=== PATIENT | male | born 1945 | race Caucasian/White ===

== ENCOUNTER 2020-02-19 07:12 | Outpatient (REF) | payer MEDICARE, BC, SELFPAY ==
[2020-02-19 08:33] LABS: MANUAL DIFF FLAG NO
[2020-02-19 08:56] LABS: Basophils Absolute Auto 0.1 X10*3/uL (0.0-0.2); Basophils Percent Auto 1.3 % (0-2); Eosinophils Absolute Auto 0.2 X10*3/uL (0.0-0.4); Eosinophils Percent Auto 3.6 % (0-4); Hematocrit 45.7 % (42-52); Hemoglobin 15.3 g/dl (14.0-18.0); Imm Gran Abs Auto 0.02 X10*3/uL (0.00-0.03); Imm Gran Pct Auto 0.3 % (0.0-0.4); Lymphocytes Absolute Auto 2.5 X10*3/uL (1.2-4.9); Lymphocytes Percent Auto 40.8 % (20-40); Mean Corpuscular HGB Conc 33.5 g/dl (31.0-36.0); Mean Corpuscular Hemoglobin 28.8 pg (27.0-33.0); Mean Corpuscular Volume 86.1 fL (80-98); Mean Platelet Volume 9.7 fL (9.4-12.4); Monocytes Absolute Auto 0.5 X10*3/uL (0.1-1.2); Monocytes Percent Auto 8.9 % (2-11); Neutrophils Absolute Auto 2.7 X10*3/uL (2.0-8.3); Neutrophils Percent Auto 45.1 % (45-73); Platelet Count 250 X10*3/uL (160-400); Red Blood Count 5.31 X10*6/uL (4.60-5.80); Red Cell Distribution Width 12.6 % (11.0-16.0); White Blood Count 6.1 X10*3/uL (4.8-10.8)
[2020-02-19 09:40] LABS: Alanine Aminotransferase 53 U/L (0-40); Albumin Level 4.5 g/dL (3.5-5.0); Alkaline Phosphatase 97 U/L (39-117); Anion Gap 10 (12-20); Aspartate Amino Transferase 36 U/L (5-37); Bilirubin Total 0.9 mg/dL (0.0-1.0); Blood Urea Nitrogen 11 mg/dL (9-16); Calcium 8.9 mg/dL (8.4-10.2); Carbon Dioxide 28 mmol/L (22-29); Chloride 102 mmol/L (96-108); Cholesterol 216 mg/dL; Estimated Glomerular Filt Rate > 60; Glucose Random 107 mg/dL (60-115); HDL Cholesterol 34 mg/dL; LDL Cholesterol Calculated 133 mg/dl; Potassium 4.2 mmol/l (3.3-5.1); Sodium 136 mmol/L (135-145); Total Protein 7.2 g/dL (6.5-8.0); Triglycerides 249 mg/dL
[2020-02-19 09:54] LABS: Estimated Average Glucose 111 mg/dL; Hemoglobin A1c % 5.5 %
[2020-02-19 10:03] LABS: Vitamin D 25-OH Total 45.1 ng/mL (>30)
[2020-02-19 11:01] LABS: Glucose Urine UA NEG (NEG); Leukocyte Esterase Urine NEG (NEG); Nitrite Urine NEG (NEG); PH 6.5 (5.0-8.0); Urine Blood NEG (NEG); Urine Ketones NEG (NEG); Urine Protein NEG (NEG-TRACE)
[2020-02-19 11:07] LABS: Appearance Urine CLEAR; Color Urine YELLOW; UACC Culture Trigger NO
[2020-02-19 11:22] LABS: RBC Urine 0 /HPF (0); Squamous Epithelial Cell Urine 1+ /LPF; WBC Urine 0 /HPF (0-4)
== END 2020-02-19 07:13 | disposition home or self-care (01) ==
LOC: HO.LAB 07:12
PROVIDERS: PCP Internal Medicine; Visit Provider Internal Medicine
DX: I10 Essential (primary) hypertension (principal); E78.5 Hyperlipidemia, unspecified; R73.01 Impaired fasting glucose; K21.9 Gastro-esophageal reflux disease without esophagitis; C67.9 Malignant neoplasm of bladder, unspecified; E55.9 Vitamin D deficiency, unspecified; E66.9 Obesity, unspecified
CPT/HCPCS: 36415; 80053; 80061; 81001; 81003; 82306; 83036; 84443; 85025

== ENCOUNTER → 2020-06-12 09:49 | Outpatient (BNVA) | payer MEDICARE, SELFPAY | PROVIDERS: Visit Provider Urology | DX: R31.9 Hematuria, unspecified (principal); Z85.51 Personal history of malignant neoplasm of bladder | CPT/HCPCS: 52000; 52332; 81002; 99212 ==

== ENCOUNTER 2020-06-17 06:55 | Outpatient (REF) | payer MEDICARE, SELFPAY ==
[2020-06-17 07:34] LABS: MANUAL DIFF FLAG NO
[2020-06-17 07:36] LABS: Basophils Absolute Auto 0.1 X10*3/uL (0.0-0.2); Basophils Percent Auto 0.8 % (0-2); Eosinophils Absolute Auto 0.2 X10*3/uL (0.0-0.4); Eosinophils Percent Auto 3.3 % (0-4); Hematocrit 44.6 % (42-52); Hemoglobin 15.3 g/dl (14.0-18.0); Imm Gran Abs Auto 0.01 X10*3/uL (0.00-0.03); Imm Gran Pct Auto 0.2 % (0.0-0.4); Lymphocytes Absolute Auto 2.4 X10*3/uL (1.2-4.9); Lymphocytes Percent Auto 39.9 % (20-40); Mean Corpuscular HGB Conc 34.3 g/dl (31.0-36.0); Mean Corpuscular Hemoglobin 28.8 pg (27.0-33.0); Mean Platelet Volume 9.9 fL (9.4-12.4); Monocytes Absolute Auto 0.5 X10*3/uL (0.1-1.2); Monocytes Percent Auto 8.5 % (2-11); Neutrophils Absolute Auto 2.9 X10*3/uL (2.0-8.3); Neutrophils Percent Auto 47.3 % (45-73); Platelet Count 253 X10*3/uL (160-400); Red Blood Count 5.31 X10*6/uL (4.60-5.80); Red Cell Distribution Width 12.5 % (11.0-16.0); White Blood Count 6.1 X10*3/uL (4.8-10.8)
[2020-06-17 07:55] LABS: Glucose Urine UA NEG (NEG); Leukocyte Esterase Urine NEG (NEG); Nitrite Urine NEG (NEG); PH 6.5 (5.0-8.0); Urine Blood TRACE (NEG); Urine Ketones NEG (NEG); Urine Protein 1+ MG/DL (NEG-TRACE)
[2020-06-17 08:12] LABS: Alanine Aminotransferase 55 U/L (0-40); Albumin Level 4.4 g/dL (3.5-5.0); Alkaline Phosphatase 102 U/L (39-117); Anion Gap 11 (12-20); Aspartate Amino Transferase 30 U/L (5-37); Bilirubin Total 0.9 mg/dL (0.0-1.0); Blood Urea Nitrogen 10 mg/dL (9-16); Calcium 8.9 mg/dL (8.4-10.2); Carbon Dioxide 29 mmol/L (22-29); Chloride 102 mmol/L (96-108); Cholesterol 197 mg/dL; Estimated Glomerular Filt Rate > 60; Glucose Fasting 113 mg/dL (60-99); HDL Cholesterol 33 mg/dL; LDL Cholesterol Calculated 101 mg/dl; Sodium 138 mmol/L (135-145); Total Protein 7.1 g/dL (6.5-8.0); Triglycerides 318 mg/dL
[2020-06-17 08:19] LABS: Appearance Urine CLEAR; Color Urine YELLOW
[2020-06-17 08:26] LABS: TSH reflex Free T4 1.33 uIU/mL (0.32-4.0); Vitamin D 25-OH Total 43.5 ng/mL (>30)
[2020-06-17 09:09] LABS: Bacteria Urine TRACE /LPF; Mucus Urine 1+ /LPF; Squamous Epithelial Cell Urine TRACE /LPF; UACC CULT YES
== END 2020-06-17 06:56 | disposition home or self-care (01) ==
LOC: HO.LAB 06:55
PROVIDERS: Visit Provider Internal Medicine
DX: I10 Essential (primary) hypertension (principal); K21.9 Gastro-esophageal reflux disease without esophagitis; C67.9 Malignant neoplasm of bladder, unspecified; E78.00 Pure hypercholesterolemia, unspecified; R73.01 Impaired fasting glucose; E66.9 Obesity, unspecified; E55.9 Vitamin D deficiency, unspecified
CPT/HCPCS: 36415; 80053; 80061; 81001; 81003; 82306; 84443; 85025; 87086

== ENCOUNTER 2020-07-06 06:03 | Day surgery (SDC) | payer MEDICARE, BC, SELFPAY ==
[2020-06-30 15:56] VITALS: BMI 29.2
[2020-07-06] VITALS (12 sets, daily range): BP systolic 136–174; BP diastolic 49–88; PULSE 63–80; RESP 16–18; TEMP 36.4–37.1; O2SAT 94–100
[2020-07-06] MEDS: levoFLOXacin 500 MG TABLET PO (06:32)
--- NOTE | 2020-07-06 07:08 | MHC.SHP ---
Pre-Procedural Eval Section A The patient is an INPATIENT: No Changes since office visit: No Cold of Flu in the past 2 weeks, No New Medical Problems, No Changes in Medication and No Patient answered all questions The History & Physical has been completed within 30 days and I have reviewed it.: Yes Section B Chief Complaint: Bladder cancer Allergies: Allergies Allergy/AdvReac Type Severity Reaction Status Date / Time amoxicillin Allergy Severe hives Verified 07/06/20 06:33 codeine [CODEINE] AdvReac Mild NAUSEA Verified 07/06/20 06:33 oxycodone [From PERCOCET] AdvReac Mild NAUSEA & Verified 07/06/20 06:33 VOMITING Plan Diagnosis/Plan: Unchanged I have reviewed the history and physical and performed a pertinent physical examination on my patient. No changes have occurred unless specified. Cystoscopy with TURBT and gemcitabine
--- NOTE | 2020-07-06 07:10 | P.CONAN_ITS ---
[facility] Active Problems Active Problems: All Active Problems (Updated 06/30/20 @ 15:52 by Brittany reza) Obesity (BMI 30-39.9) (Acute) Insomnia (Acute) Urothelial carcinoma of bladder (Acute) Vitamin D deficiency (Acute) GERD (gastroesophageal reflux disease) (Acute) Impaired fasting glucose (Acute) Pure hypercholesterolemia (Acute) Benign essential hypertension (Acute) Past Medical History Medical History (Updated 06/30/20 @ 15:52 by Brittany Higuera) Benign essential hypertension GERD (gastroesophageal reflux disease) Hiatal hernia Hx of bladder cancer Impaired fasting glucose Insomnia Murmur Obesity (BMI 30-39.9) Pure hypercholesterolemia Urothelial carcinoma of bladder Vitamin D deficiency Family History Family History Father Hypertension Stroke Acute CVA (cerebrovascular accident) Mother Hypertension Diabetes CVD (cardiovascular disease) Brother In good health Surgical History Surgical History (Updated 06/30/20 @ 15:52 by Brittany Higuera) H/O arthroscopy of knee History of biopsy of bladder History of bladder surgery History of cataract surgery History of colonoscopy History of esophagogastroduodenoscopy (EGD) History of hemorrhoidectomy Social History Social History (Updated 06/30/20 @ 15:55 by Brittany Higuera) Alcohol intake: current Alcohol intake frequency: a few times a week Alcohol type: beer Smoking Status: Former smoker Smoking Quit Date: Use of substances other than those prescribed or required for medical reasons: No Have you been hit, kicked, punched, or otherwise hurt by someone within the past year? If so, by whom?: No Advance Directives: No Advance Directives Information Provided: No Advance Directives on File: No Meds Allergies Allergy/AdvReac Type Severity Reaction Status Date / Time amoxicillin Allergy Severe hives Verified 07/06/20 06:33 codeine [CODEINE] AdvReac Mild NAUSEA Verified 07/06/20 06:33 oxycodone [From PERCOCET] AdvReac Mild NAUSEA & Verified 07/06/20 06:33 VOMITING Active Medications: Current Medications Generic Name Dose Route Start Last Admin Trade Name Freq PRN Reason Stop Dose Admin Gemcitabine HCl 1,000 mg/ 50 mls @ 50 mls/hr 07/06/20 00:00 Sodium Chloride INTRAVESIC 07/06/20 23:59 ONCE ROSEANNE Gemcitabine HCl 1,000 mg/ 50 mls @ 50 mls/hr 07/06/20 00:00 Sodium Chloride INTRAVESIC 07/06/20 23:59 ONCE ROSEANNE Lactated Ringer's 1,000 mls @ 50 mls/hr 07/06/20 07:15 Lr IV .Q20H [facility] Home Medications Medication Instructions Recorded Confirmed Last Taken Type amlodipine 10 mg tablet 10 mg PO DAILY 02/25/20 06/30/20 07/06/20 History calcium carbonate 600 mg calcium 600 mg PO DAILY 02/25/20 06/30/20 Unknown History (1,500 mg) tablet diphenhydramine HCl 25 mg capsule 50 mg PO BEDTIME 02/25/20 06/30/20 Unknown History lisinopril 40 mg tablet 40 mg PO DAILY 02/25/20 06/30/20 07/06/20 History metoprolol tartrate 25 mg tablet 25 mg PO BID 02/25/20 06/30/20 07/06/20 History multivitamin 1 tab PO DAILY 02/25/20 06/30/20 Unknown History omeprazole magnesium 20 mg 20 mg PO DAILY 02/25/20 07/06/20 07/06/20 History tablet,delayed release 0500 Exam Exam Date and Time: July 06, 2020 0710 Height,Weight and Vital Signs: Height 5 ft 4 in Weight 77.111 kg Last Vital Signs Temp 98.8 F 07/06/20 06:13 Pulse 74 07/06/20 06:13 Resp 18 07/06/20 06:13 BP 174/88 H 07/06/20 06:13 Pulse Ox 97 07/06/20 06:13 Airway Mallampati Class: II TM Dist: >3cm Neck ROM: Full Heart: RRR Lungs: CtA Bl Assessment and Plan Assessment Anesthesia Assessment: Anesthesia Plan Discussed and Chart Reviewed Final Anesthetic Review NPO: Yes (Sip water with meds) ASA Class: III Final Preanesthetic Review: No Changes in Pt Med Stat and Consent Obtained/Reviewed Patient Risk: Intermediate Procedure Risk: Intermediate Anesthetic Plan Anesthetic Plan: MAC: Disposition: Standard PACU
[2020-07-06] MEDS: Lactated Ringers 1,000 ML 50 ML IV (07:17)
--- NOTE | 2020-07-06 08:13 | PM.OP ---
Brief Operative Note Date of Service: 07/06/20 Pre-op diagnosis: Bladder cancer Post-op diagnosis: same Procedure: TURBT large, mitomycin C instillation Surgeon: Vince Alvarez MD Anesthesia: GLMA Estimated blood loss (mL): 0 Pathology: other (Bladder cancer) Condition: stable Disposition: same day
--- NOTE | 2020-07-06 08:19 | P.OP_ITS ---
Operative Note Operative Note Date of Service: 07/06/20 Narrative: PreOperative Diagnosis: Bladder cancer Post Operative Diagnosis: Bladder cancer Procedure: TURBT large, instillation gemcitabine Surgeon: Dr Vince Alvarez Anesthesia: General Indications for procedure: Recurrent bladder cancer. On cystoscopy in office found to have large greater than 4 cm lesion on right upper bladder sidewall. Recommendation for resection plus gemcitabine. Risks and benefits previously been discussed Procedure: After informed consent was verified the patient was brought to the operating room and placed in a supine position. anesthesia was administered per protocol. Patient was placed in modified dorsal lithotomy position and prepped and draped in sterile fashion. Safety pause time-out was performed. Antibiotics being given. A resectoscope was placed per urethra. The large recurrent bladder lesion was seen on the sidewall. Feeding kip vascularity vessels were noted. The lesion was resected. Likely it had a relatively narrow approximately 1 cm base. As we resected we were able to get to the base and fulgurate the blood supply. Then t he area around the base was resected and fulgurated for 1 cm in additional circumference. Specimen was sent. Three 0 Marshall catheter was placed the completion of the procedure. Gemcitabine 2 g in 100 cc normal saline was instilled. This will be kept for approximately 1 hour and then washed with 3 L of normal saline. He tolerated procedure well was extubated in operating transferred in stable c ondition to the recovery area. Drainage bag place. Pathology: Bladder specimen Drains: Marshall catheter
[2020-07-06] MEDS: Acetaminophen 325 MG TABLET 650 MG PO (10:04)
== END 2020-07-06 11:15 ==
LOC: HO.SSS 06:03
PROVIDERS: PCP Internal Medicine; Visit Provider Urology
PROC: 0TBB8ZZ Excision of Bladder, Via Natural or Artificial Opening Endoscopic (ICD-10-PCS; CPT 52240; principal; 2020-07-06 07:30)
DX: C67.9 Malignant neoplasm of bladder, unspecified (principal)
CPT/HCPCS: 52240; 51720; 88307; J1100; J2250; J2405; J3010; J9201

== ENCOUNTER → 2020-07-23 08:36 | Outpatient (BNVA) | payer MEDICARE, BC, SELFPAY | PROVIDERS: PCP Internal Medicine; Visit Provider Urology | DX: C67.9 Malignant neoplasm of bladder, unspecified (principal) | CPT/HCPCS: 99212 ==

== ENCOUNTER 2020-09-18 18:05 | Emergency (ER) | payer MEDICARE, BC, SELFPAY ==
--- NOTE | ~2020-09-18 | CT_ITS ---
EXAMINATION: CT HEAD WITHOUT CONTRAST CLINICAL INFORMATION: Unilateral double vision COMPARISON: None TECHNIQUE: Contiguous axial imaging was performed from the skull base to vertex without intravenous administration of contrast. This CT examination was performed using dose optimization techniques as appropriate, variously including the following: *Automated exposure control *Adjustment of mA and/or kV according to patient size (this includes techniques or standardized protocols for targeted exams where dose is matched to indication/reason for exam; i.e. extremities or head) *Use of iterative reconstruction technique DLP: 714 mGy-cm FINDINGS: There is no evidence of acute intracranial hemorrhage or territorial infarction. No abnormal mass effect or midline shift is seen. Whitaker to white matter differentiation is well preserved. No extra-axial fluid collections are identified. The ventricles are normal in size. There is no abnormal attenuation within the brain parenchyma. The osseous structures and soft tissues are normal. The mastoid air cells and visualized portions of the paranasal sinuses are well aerated. CT/CT head/brain wo con IMPRESSION: No acute intracranial process seen
[2020-09-18 19:56] VITALS: BP 197/89; PULSE 93; RESP 16; TEMP 37.1; O2SAT 95; BMI 31.8
[2020-09-18 20:36] LABS: MANUAL DIFF FLAG NO
[2020-09-18 20:37] LABS: Basophils Percent Auto 0.5 % (0-2); Eosinophils Absolute Auto 0.1 X10*3/uL (0.0-0.4); Eosinophils Percent Auto 1.7 % (0-4); Hematocrit 43.4 % (42-52); Hemoglobin 15.2 g/dl (14.0-18.0); Imm Gran Abs Auto 0.02 X10*3/uL (0.00-0.03); Imm Gran Pct Auto 0.3 % (0.0-0.4); Lymphocytes Absolute Auto 2.7 X10*3/uL (1.2-4.9); Lymphocytes Percent Auto 36.5 % (20-40); Mean Corpuscular Hemoglobin 29.3 pg (27.0-33.0); Mean Corpuscular Volume 83.8 fL (80-98); Mean Platelet Volume 9.5 fL (9.4-12.4); Monocytes Absolute Auto 0.6 X10*3/uL (0.1-1.2); Monocytes Percent Auto 8.3 % (2-11); Neutrophils Absolute Auto 3.9 X10*3/uL (2.0-8.3); Neutrophils Percent Auto 52.7 % (45-73); Platelet Count 233 X10*3/uL (160-400); Red Blood Count 5.18 X10*6/uL (4.60-5.80); Red Cell Distribution Width 13.3 % (11.0-16.0); White Blood Count 7.5 X10*3/uL (4.8-10.8)
[2020-09-18 21:05] LABS: Anion Gap 13 (12-20); Blood Urea Nitrogen 11 mg/dL (9-16); Calcium 9.6 mg/dL (8.4-10.2); Carbon Dioxide 27 mmol/L (22-29); Chloride 105 mmol/L (96-108); Creatinine Clr Calc Pharmacy 77.3; Estimated Glomerular Filt Rate > 60; Glucose Random 107 mg/dL (60-115); Potassium 3.4 mmol/L (3.3-5.1); Sodium 142 mmol/L (135-145)
--- NOTE | 2020-09-18 22:39 | ED.GENADULT ---
HPI - General Adult General Chief complaint: General Medical Stated complaint: blurred vision Time Seen by Provider: 09/18/20 22:31 Source: patient Mode of arrival: ambulatory History of Present Illness HPI narrative: Double vision that started earlier in the day approximately noon that he noted while he was driving. It only occurs at further distances and is associated with the duplicated image 1 behind the other. He denies any headache or other symptoms such as slurred speech or unilateral weakness/numbness/tingling. Patient denies any loss of vision and states that he had a new prescription approximately 2 months ago and currently wears multifocal lenses. Related Data Home Medications Medication Instructions Recorded Confirmed amlodipine 10 mg tablet 10 mg PO DAILY 02/25/20 06/30/20 calcium carbonate 600 mg calcium 600 mg PO DAILY 02/25/20 06/30/20 (1,500 mg) tablet diphenhydramine HCl 25 mg capsule 50 mg PO BEDTIME 02/25/20 06/30/20 lisinopril 40 mg tablet 40 mg PO DAILY 02/25/20 06/30/20 metoprolol tartrate 25 mg tablet 25 mg PO BID 02/25/20 06/30/20 multivitamin 1 tab PO DAILY 02/25/20 06/30/20 omeprazole magnesium 20 mg 20 mg PO DAILY 02/25/20 07/06/20 tablet,delayed release Previous Rx's Medication Instructions Recorded ondansetron HCl [Zofran] 4 mg PO Q8H PRN #10 tab 07/06/20 tramadol 50 mg PO Q6H PRN #14 tab 07/06/20 trimethoprim 100 mg PO Q12H 10 Days #20 tab 07/06/20 Allergies Allergy/AdvReac Type Severity Reaction Status Date / Time amoxicillin Allergy Severe hives Verified 07/06/20 06:33 codeine [CODEINE] AdvReac Mild NAUSEA Verified 07/06/20 06:33 oxycodone [From PERCOCET] AdvReac Mild NAUSEA & Verified 07/06/20 06:33 VOMITING PMFSH Past Medical History Medical History Benign essential hypertension GERD (gastroesophageal reflux disease) Hiatal hernia Hx of bladder cancer Impaired fasting glucose Insomnia Murmur Obesity (BMI 30-39.9) Pure hypercholesterolemia Urothelial carcinoma of bladder Vitamin D deficiency Surgical History H/O arthroscopy of knee History of biopsy of bladder History of bladder surgery History of cataract surgery History of colonoscopy History of esophagogastroduodenoscopy (EGD) History of hemorrhoidectomy Family History Family History Father Hypertension Stroke Acute CVA (cerebrovascular accident) Mother Hypertension Diabetes CVD (cardiovascular disease) Brother In good health Social History Social History Alcohol intake: current Alcohol intake frequency: a few times a week Alcohol type: beer Smoking Status: Former smoker Advance Directives: No Advance Directives Information Provided: No Physical Exam Vital Signs: Vital Signs: Last Vital Signs Temp 98.8 F 09/18/20 19:56 Pulse 72 09/18/20 23:40 Resp 16 09/18/20 23:40 BP 172/84 H 09/18/20 23:40 Pulse Ox 96 09/18/20 23:40 Body Mass Index 31.8 Course Reevaluation(s) Reevaluation #1: I discussed the case with Dr. 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 He states that these typically resolve on their own and can take as long as 3-4 months. 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 Time: 00:21 Medical Decision Making Lab Data Result diagrams: 09/18/20 20:20 09/18/20 20:20 Labs: Lab Results 09/18/20 09/18/20 Range/Units 20:20 20:20 WBC 7.5 (4.8-10.8) X10*3/uL RBC 5.18 (4.60-5.80) X10*6/uL Hgb 15.2 (14.0-18.0) g/dl Hct 43.4 (42-52) % MCV 83.8 (80-98) fL MCH 29.3 (27.0-33.0) pg MCHC 35.0 (31.0-36.0) g/dl RDW 13.3 (11.0-16.0) % Plt Count 233 (160-400) X10*3/uL MPV 9.5 (9.4-12.4) fL Immature Gran % (Auto) 0.3 (0.0-0.4) % Neut % (Auto) 52.7 (45-73) % Lymph % (Auto) 36.5 (20-40) % [place] % (Auto) 8.3 (2-11) % Eos % (Auto) 1.7 (0-4) % Baso % (Auto) 0.5 (0-2) % Lymph # (Auto) 2.7 (1.2-4.9) X10*3/uL [place] # (Auto) 0.6 (0.1-1.2) X10*3/uL Eos # (Auto) 0.1 (0.0-0.4) X10*3/uL Baso # (Auto) 0.0 (0.0-0.2) X10*3/uL Abs Immat Gran (auto) 0.02 (0.00-0.03) X10*3/uL Absolute Neuts (auto) 3.9 (2.0-8.3) X10*3/uL Absolute Nucleated RBC 0.000 (0.0-0.012) X10*3/uL Nucleated RBC % (auto) 0.0 (0.0-0.2) /100WBC Sodium 142 (135-145) mmol/L Potassium 3.4 (3.3-5.1) mmol/L Chloride 105 (96-108) mmol/L Carbon Dioxide 27 (22-29) mmol/L Anion Gap 13 (12-20) BUN 11 (9-16) mg/dL Creatinine 0.78 (0.5-1.4) mg/dL Estim Creat Clear Calc 77.3 Estimated GFR > 60 Random Glucose 107 (60-115) mg/dL Calcium 9.6 D (8.4-10.2) mg/dL Discharge Plan Discharge Clinical Impression: Double vision Patient Disposition: Home, Self-Care Instructions: Diplopia (ED) Additional Instructions: 1. Resume all home medications as prescribed. Please follow-up with your primary care provider on Monday morning to discuss adjustment of your blood pressure medications. 2. Please follow-up with your racing car driver by calling the office on Monday morning although he will be in surgery he will recall the discussion that was had over the weekend. Do not hesitate to return to the emergency room should you experience any acute worsening of your symptoms. Prescriptions: No Action trimethoprim 100 mg tablet 100 mg PO Q12H 10 Days Qty: 20 RF: 0 tramadol 50 mg tablet 50 mg PO Q6H PRN (Reason: pain (scale score 4-6)) Qty: 14 RF: 0 ondansetron HCl [Zofran] 4 mg tablet 4 mg PO Q8H PRN (Reason: nausea and vomiting) Qty: 10 RF: 0 lisinopril 40 mg tablet 40 mg PO DAILY RF: 0 metoprolol tartrate 25 mg tablet 25 mg PO BID RF: 0 amlodipine 10 mg tablet 10 mg PO DAILY RF: 0 omeprazole magnesium [Prilosec OTC] 20 mg tablet,delayed release (DR/EC) 20 mg PO DAILY RF: 0 calcium carbonate [Calcium 600] 600 mg calcium (1,500 mg) tablet 600 mg PO DAILY RF: 0 diphenhydramine HCl [Allergy (diphenhydramine)] 25 mg capsule 50 mg PO BEDTIME RF: 0 multivitamin [Daily Multi-Vitamin] Tablet 1 tab PO DAILY RF: 0 Referrals: Augusto Holman MD [Primary Care Provider] - 2 days (Re-evaluation for intermittently poorly controlled blood pressure.) Bill Adams [Physician] - 2 days (Re-evaluation of patient seen in the emergency room for double vision only present on distance. Case was discussed with you at that time. And patient states that you are his racing car driver.)
--- NOTE | 2020-09-18 22:46 | PC.NURSE ---
PT RETURNS FROM CT. PT IN NAD.
[2020-09-18 23:40] VITALS: BP 172/84; PULSE 72; RESP 16; O2SAT 96
== END 2020-09-19 02:21 | disposition home or self-care (01) ==
PROVIDERS: Emergency Provider Student in an Organized Health Care Education/Training Program; PCP Internal Medicine
DX: H53.8 Other visual disturbances (principal); Z79.899 Other long term (current) drug therapy
CPT/HCPCS: 36415; 70450; 80048; 85025; 99283

== ENCOUNTER 2020-10-08 07:05 | Outpatient (REF) | payer MEDICARE, BC, SELFPAY ==
[2020-10-08 07:38] LABS: MANUAL DIFF FLAG NO
[2020-10-08 07:43] LABS: Basophils Absolute Auto 0.1 X10*3/uL (0.0-0.2); Eosinophils Absolute Auto 0.2 X10*3/uL (0.0-0.4); Eosinophils Percent Auto 2.3 % (0-4); Hematocrit 44.9 % (42-52); Hemoglobin 15.8 g/dl (14.0-18.0); Imm Gran Abs Auto 0.01 X10*3/uL (0.00-0.03); Imm Gran Pct Auto 0.1 % (0.0-0.4); Lymphocytes Absolute Auto 2.3 X10*3/uL (1.2-4.9); Lymphocytes Percent Auto 34.2 % (20-40); Mean Corpuscular HGB Conc 35.2 g/dl (31.0-36.0); Mean Corpuscular Hemoglobin 30.1 pg (27.0-33.0); Mean Corpuscular Volume 85.5 fL (80-98); Mean Platelet Volume 10.3 fL (9.4-12.4); Monocytes Absolute Auto 0.7 X10*3/uL (0.1-1.2); Monocytes Percent Auto 9.9 % (2-11); Neutrophils Absolute Auto 3.6 X10*3/uL (2.0-8.3); Neutrophils Percent Auto 52.5 % (45-73); Platelet Count 287 X10*3/uL (160-400); Red Blood Count 5.25 X10*6/uL (4.60-5.80); Red Cell Distribution Width 12.6 % (11.0-16.0); White Blood Count 6.8 X10*3/uL (4.8-10.8)
[2020-10-08 08:06] LABS: Alanine Aminotransferase 69 U/L (0-40); Albumin Level 4.7 g/dL (3.5-5.0); Alkaline Phosphatase 102 U/L (39-117); Anion Gap 14 (12-20); Aspartate Amino Transferase 40 U/L (5-37); Bilirubin Total 1.3 mg/dL (0.0-1.0); Blood Urea Nitrogen 11 mg/dL (9-16); Calcium 9.7 mg/dL (8.4-10.2); Carbon Dioxide 26 mmol/L (22-29); Chloride 102 mmol/L (96-108); Cholesterol 161 mg/dL; Estimated Glomerular Filt Rate > 60; Glucose Fasting 99 mg/dL (60-99); HDL Cholesterol 34 mg/dL; LDL Cholesterol Calculated 101 mg/dl; Potassium 3.8 mmol/L (3.3-5.1); Sodium 138 mmol/L (135-145); Total Protein 7.3 g/dL (6.5-8.0); Triglycerides 131 mg/dL
[2020-10-08 08:11] LABS: Estimated Average Glucose 108 mg/dL; Hemoglobin A1c % 5.4 %
[2020-10-08 08:29] LABS: Vitamin D 25-OH Total 56.6 ng/mL (>30)
== END 2020-10-08 07:06 | disposition home or self-care (01) ==
LOC: HO.LAB 07:05
PROVIDERS: PCP Internal Medicine; Visit Provider Internal Medicine
DX: E66.9 Obesity, unspecified (principal); E55.9 Vitamin D deficiency, unspecified; E78.00 Pure hypercholesterolemia, unspecified; R73.01 Impaired fasting glucose; I10 Essential (primary) hypertension; C67.9 Malignant neoplasm of bladder, unspecified; K21.9 Gastro-esophageal reflux disease without esophagitis
CPT/HCPCS: 36415; 80053; 80061; 82306; 83036; 84443; 85025

== ENCOUNTER → 2020-10-09 13:10 | Outpatient (BNVA) | payer MEDICARE, BC, SELFPAY | PROVIDERS: PCP Internal Medicine; Visit Provider Urology | DX: Z13.89 Encounter for screening for other disorder (principal) | CPT/HCPCS: Q3014 ==

== ENCOUNTER → 2020-12-01 10:48 | Outpatient (BNVA) | payer MEDICARE, BC, SELFPAY | PROVIDERS: PCP Internal Medicine; Visit Provider Urology | DX: C67.9 Malignant neoplasm of bladder, unspecified (principal) | CPT/HCPCS: 52000; 99212 ==

== ENCOUNTER 2021-02-12 06:55 | Outpatient (REF) | payer MEDICARE, BC, SELFPAY ==
[2021-02-12 07:59] LABS: Appearance Urine CLEAR; Color Urine STRAW; Glucose Urine UA NEG (NEG); Leukocyte Esterase Urine NEG (NEG); Nitrite Urine NEG (NEG); PH 6.5 (5.0-8.0); Specific Gravity - Urine <= 1.005 (1.005-1.025); Urine Blood NEG (NEG); Urine Ketones NEG (NEG); Urine Protein NEG (NEG-TRACE)
[2021-02-12 08:15] LABS: Basophils Absolute Auto 0.1 X10*3/uL (0.0-0.2); Eosinophils Absolute Auto 0.3 X10*3/uL (0.0-0.4); Eosinophils Percent Auto 5.1 % (0-4); Hematocrit 42.5 % (42-52); Imm Gran Abs Auto 0.01 X10*3/uL (0.00-0.03); Imm Gran Pct Auto 0.2 % (0.0-0.4); Lymphocytes Absolute Auto 2.4 X10*3/uL (1.2-4.9); Lymphocytes Percent Auto 37.9 % (20-40); MANUAL DIFF FLAG NO; Mean Corpuscular HGB Conc 35.3 g/dl (31.0-36.0); Mean Platelet Volume 10.5 fL (9.4-12.4); Monocytes Absolute Auto 0.6 X10*3/uL (0.1-1.2); Monocytes Percent Auto 8.9 % (2-11); Neutrophils Percent Auto 46.9 % (45-73); Platelet Count 233 X10*3/uL (160-400); Red Cell Distribution Width 12.9 % (11.0-16.0); White Blood Count 6.3 X10*3/uL (4.8-10.8)
[2021-02-12 08:45] LABS: Estimated Average Glucose 97 mg/dL; Hemoglobin A1C 117.5552 umol/L
[2021-02-12 08:52] LABS: Alanine Aminotransferase 34 U/L (0-40); Albumin Level 4.5 g/dL (3.5-5.0); Alkaline Phosphatase 88 U/L (39-117); Anion Gap 13 (12-20); Aspartate Amino Transferase 29 U/L (5-37); Blood Urea Nitrogen 12 mg/dL (9-16); Calcium 9.1 mg/dL (8.4-10.2); Carbon Dioxide 28 mmol/L (22-29); Chloride 105 mmol/L (96-108); Cholesterol 200 mg/dL; Estimated Glomerular Filt Rate > 60; Glucose Fasting 99 mg/dL (60-99); HDL Cholesterol 32 mg/dL; LDL Cholesterol Calculated 126 mg/dl; Potassium 4.5 mmol/L (3.3-5.1); Sodium 141 mmol/L (135-145); Total Protein 7.2 g/dL (6.5-8.0); Triglycerides 213 mg/dL
[2021-02-12 09:12] LABS: Vitamin D 25-OH Total 58.4 ng/mL (>30)
== END 2021-02-12 06:56 | disposition home or self-care (01) ==
LOC: HO.LAB 06:55
PROVIDERS: PCP Internal Medicine; Visit Provider Internal Medicine
DX: E78.00 Pure hypercholesterolemia, unspecified (principal); R73.01 Impaired fasting glucose; I10 Essential (primary) hypertension; C67.9 Malignant neoplasm of bladder, unspecified; E55.9 Vitamin D deficiency, unspecified
CPT/HCPCS: 36415; 80053; 80061; 81003; 82306; 83036; 85025

== ENCOUNTER 2021-03-09 14:48 | Outpatient (REF) | payer MEDICARE, BC, SELFPAY ==
[2021-03-09 16:56] LABS: Urine Cytology See Pathology rpt
== END 2021-03-09 14:49 | disposition home or self-care (01) ==
LOC: HO.LAB 14:48
PROVIDERS: PCP Internal Medicine; Visit Provider Urology
DX: C67.9 Malignant neoplasm of bladder, unspecified (principal)
CPT/HCPCS: 52000; 88112

== ENCOUNTER 2021-06-09 09:51 | Outpatient (REF) | payer MEDICARE, BC, SELFPAY ==
[2021-06-09 16:32] LABS: Urine Cytology See Pathology rpt
== END 2021-06-09 09:52 | disposition home or self-care (01) ==
LOC: HO.LAB 09:51
PROVIDERS: PCP Internal Medicine; Visit Provider Urology
DX: C67.9 Malignant neoplasm of bladder, unspecified (principal)
CPT/HCPCS: 52000; 88112; 99212

== ENCOUNTER 2021-06-18 06:49 | Outpatient (REF) | payer MEDICARE, BC, SELFPAY ==
[2021-06-18 07:05] LABS: MANUAL DIFF FLAG NO
[2021-06-18 07:41] LABS: Basophils Absolute Auto 0.1 X10*3/uL (0.0-0.2); Basophils Percent Auto 0.7 % (0-2); Eosinophils Absolute Auto 0.3 X10*3/uL (0.0-0.4); Eosinophils Percent Auto 3.9 % (0-4); Hematocrit 43.1 % (42.0-52.0); Imm Gran Abs Auto 0.03 X10*3/uL (0.00-0.03); Imm Gran Pct Auto 0.4 % (0.0-0.4); Lymphocytes Absolute Auto 2.4 X10*3/uL (1.2-4.9); Lymphocytes Percent Auto 33.6 % (20-40); Mean Corpuscular HGB Conc 34.8 g/dl (31.0-36.0); Mean Corpuscular Hemoglobin 29.5 pg (27.0-33.0); Mean Corpuscular Volume 84.8 fL (80.0-98.0); Mean Platelet Volume 10.1 fL (9.4-12.4); Monocytes Absolute Auto 0.7 X10*3/uL (0.1-1.2); Neutrophils Absolute Auto 3.7 x10*3/uL (2.0-8.3); Neutrophils Percent Auto 51.4 % (45-73); Platelet Count 273 X10*3/uL (160-400); Red Blood Count 5.08 X10*6/uL (4.60-5.80); Red Cell Distribution Width 12.7 % (11.0-16.0); White Blood Count 7.1 X10*3/uL (4.8-10.8)
[2021-06-18 07:47] LABS: Estimated Average Glucose 114 mg/dL; Hemoglobin A1c % 5.6 %
[2021-06-18 07:49] LABS: Alanine Aminotransferase 66 U/L (0-40); Albumin Level 4.6 g/dL (3.5-5.0); Alkaline Phosphatase 91 U/L (39-117); Anion Gap 12 (12-20); Aspartate Amino Transferase 39 U/L (5-37); Bilirubin Total 1.4 mg/dL (0.0-1.0); Blood Urea Nitrogen 9 mg/dL (9-16); Calcium 9.3 mg/dL (8.4-10.2); Carbon Dioxide 27 mmol/L (22-29); Chloride 104 mmol/L (96-108); Cholesterol 205 mg/dL; Estimated Glomerular Filt Rate > 60; Glucose Fasting 113 mg/dL (60-99); HDL Cholesterol 31 mg/dL; LDL Cholesterol Calculated 118 mg/dl; Potassium 3.8 mmol/L (3.3-5.1); Sodium 139 mmol/L (135-145); Total Protein 7.5 g/dL (6.5-8.0); Triglycerides 284 mg/dL
[2021-06-18 08:09] LABS: TSH reflex Free T4 1.75 uIU/mL (0.32-4.0); Vitamin D 25-OH Total 46.7 ng/mL (>30)
[2021-06-18 11:58] LABS: Appearance Urine HAZY; Color Urine YELLOW; Glucose Urine UA NEG (NEG); Leukocyte Esterase Urine NEG (NEG); Nitrite Urine NEG (NEG); PH 6.5 (5.0-8.0); Specific Gravity - Urine <= 1.005 (1.005-1.025); Urine Blood NEG (NEG); Urine Ketones NEG (NEG); Urine Protein NEG (NEG-TRACE)
== END 2021-06-18 06:50 | disposition home or self-care (01) ==
LOC: HO.LAB 06:49
PROVIDERS: PCP Internal Medicine; Visit Provider Internal Medicine
DX: E78.00 Pure hypercholesterolemia, unspecified (principal); E55.9 Vitamin D deficiency, unspecified; I10 Essential (primary) hypertension; R73.01 Impaired fasting glucose
CPT/HCPCS: 36415; 80053; 80061; 81003; 82306; 83036; 84443; 85025

== ENCOUNTER 2021-09-07 09:51 | Outpatient (REF) | payer MEDICARE, BC, SELFPAY ==
[2021-09-07 16:34] LABS: Urine Cytology See Pathology rpt
== END 2021-09-07 09:52 | disposition home or self-care (01) ==
LOC: HO.LAB 09:51
PROVIDERS: PCP Internal Medicine; Visit Provider Urology
DX: C67.9 Malignant neoplasm of bladder, unspecified (principal)
CPT/HCPCS: 52000; 88112; 88121; 99212

== ENCOUNTER 2021-10-14 07:05 | Outpatient (REF) | payer MEDICARE, BC, SELFPAY ==
[2021-10-14 07:27] LABS: MANUAL DIFF FLAG NO
[2021-10-14 07:51] LABS: Basophils Absolute Auto 0.1 X10*3/uL (0.0-0.2); Eosinophils Absolute Auto 0.3 X10*3/uL (0.0-0.4); Eosinophils Percent Auto 3.9 % (0-4); Hematocrit 43.7 % (42.0-52.0); Hemoglobin 15.3 g/dl (14.0-18.0); Imm Gran Abs Auto 0.02 X10*3/uL (0.00-0.03); Imm Gran Pct Auto 0.3 % (0.0-0.4); Lymphocytes Absolute Auto 2.6 X10*3/uL (1.2-4.9); Lymphocytes Percent Auto 38.6 % (20-40); Mean Corpuscular Hemoglobin 29.6 pg (27.0-33.0); Mean Corpuscular Volume 84.5 fL (80.0-98.0); Mean Platelet Volume 10.1 fL (9.4-12.4); Monocytes Absolute Auto 0.6 X10*3/uL (0.1-1.2); Monocytes Percent Auto 9.4 % (2-11); Neutrophils Absolute Auto 3.2 x10*3/uL (2.0-8.3); Neutrophils Percent Auto 46.8 % (45-73); Platelet Count 266 X10*3/uL (160-400); Red Blood Count 5.17 X10*6/uL (4.60-5.80); Red Cell Distribution Width 12.6 % (11.0-16.0); White Blood Count 6.7 X10*3/uL (4.8-10.8)
[2021-10-14 08:23] LABS: Estimated Average Glucose 105 mg/dL; Hemoglobin A1c % 5.3 %
[2021-10-14 08:27] LABS: Alanine Aminotransferase 36 U/L (0-40); Albumin Level 4.7 g/dL (3.5-5.0); Alkaline Phosphatase 91 U/L (39-117); Anion Gap 11 (12-20); Aspartate Amino Transferase 26 U/L (5-37); Bilirubin Total 1.1 mg/dL (0.0-1.0); Blood Urea Nitrogen 11 mg/dL (9-16); Calcium 9.8 mg/dL (8.4-10.2); Carbon Dioxide 30 mmol/L (22-29); Chloride 103 mmol/L (96-108); Cholesterol 211 mg/dL; Estimated Glomerular Filt Rate > 60; Glucose Fasting 103 mg/dL (60-99); HDL Cholesterol 32 mg/dL; LDL Cholesterol Calculated 127 mg/dl; Potassium 4.2 mmol/L (3.3-5.1); Sodium 140 mmol/L (135-145); Total Protein 7.6 g/dL (6.5-8.0); Triglycerides 260 mg/dL
[2021-10-14 08:47] LABS: Prostate Specific Antigen 2.63 ng/mL (<0.05-4.0); TSH reflex Free T4 2.21 uIU/mL (0.32-4.0); Vitamin D 25-OH Total 50.3 ng/mL (>30)
[2021-10-14 08:49] LABS: Appearance Urine CLEAR; Color Urine YELLOW; Glucose Urine UA NEG (NEG); Leukocyte Esterase Urine 1+ (NEG); Nitrite Urine NEG (NEG); UACC Culture Trigger YES; Urine Blood NEG (NEG); Urine Ketones NEG (NEG); Urine Protein NEG (NEG-TRACE)
[2021-10-14 08:57] LABS: Bacteria Urine 1+ /LPF; RBC Urine 0 /HPF (0); Squamous Epithelial Cell Urine 1+ /LPF; WBC Urine 30-49 /HPF (0-4)
== END 2021-10-14 07:06 | disposition home or self-care (01) ==
LOC: HO.LAB 07:05
PROVIDERS: PCP Internal Medicine; Visit Provider Internal Medicine
DX: Z12.5 Encounter for screening for malignant neoplasm of prostate (principal); E78.00 Pure hypercholesterolemia, unspecified; N40.0 Benign prostatic hyperplasia without lower urinary tract symptoms; E55.9 Vitamin D deficiency, unspecified; R73.01 Impaired fasting glucose; I10 Essential (primary) hypertension
CPT/HCPCS: 36415; 80053; 80061; 81001; 82306; 83036; 84153; 84443; 85025; 87086; 87088; 87186

== ENCOUNTER → 2022-01-11 08:43 | Outpatient (BNVA) | payer MEDICARE, BC, SELFPAY | PROVIDERS: PCP Internal Medicine; Visit Provider Urology | DX: C67.9 Malignant neoplasm of bladder, unspecified (principal) | CPT/HCPCS: 52000; 88121; 99212 ==

== ENCOUNTER 2022-01-11 16:53 | Outpatient (REF) | payer MEDICARE, BC, SELFPAY | END 2022-01-11 16:54 | disposition home or self-care (01) | LOC: HO.LNP 16:53 | PROVIDERS: Visit Provider Urology | DX: Z13.89 Encounter for screening for other disorder (principal) | CPT/HCPCS: 88121 ==

== ENCOUNTER 2022-02-04 06:56 | Outpatient (REF) | payer MEDICARE, BC, SELFPAY ==
[2022-02-04 07:18] LABS: MANUAL DIFF FLAG NO
[2022-02-04 07:34] LABS: Basophils Absolute Auto 0.1 X10*3/uL (0.0-0.2); Basophils Percent Auto 1.1 % (0-2); Eosinophils Absolute Auto 0.2 X10*3/uL (0.0-0.4); Eosinophils Percent Auto 2.9 % (0-4); Hematocrit 41.4 % (42.0-52.0); Hemoglobin 14.7 g/dl (14.0-18.0); Imm Gran Abs Auto 0.02 X10*3/uL (0.00-0.03); Imm Gran Pct Auto 0.3 % (0.0-0.4); Lymphocytes Absolute Auto 2.7 X10*3/uL (1.2-4.9); Lymphocytes Percent Auto 43.7 % (20-40); Mean Corpuscular HGB Conc 35.5 g/dl (31.0-36.0); Mean Corpuscular Hemoglobin 29.1 pg (27.0-33.0); Mean Platelet Volume 9.8 fL (9.4-12.4); Monocytes Absolute Auto 0.7 X10*3/uL (0.1-1.2); Monocytes Percent Auto 11.1 % (2-11); Neutrophils Absolute Auto 2.5 x10*3/uL (2.0-8.3); Neutrophils Percent Auto 40.9 % (45-73); Platelet Count 251 X10*3/uL (160-400); Red Blood Count 5.05 X10*6/uL (4.60-5.80); Red Cell Distribution Width 12.6 % (11.0-16.0); White Blood Count 6.2 X10*3/uL (4.8-10.8)
[2022-02-04 07:50] LABS: Estimated Average Glucose 111 mg/dL; Hemoglobin A1c % 5.5 %
[2022-02-04 08:08] LABS: Alanine Aminotransferase 58 U/L (0-40); Albumin Level 4.6 g/dL (3.5-5.0); Alkaline Phosphatase 78 U/L (39-117); Anion Gap 15 (12-20); Aspartate Amino Transferase 39 U/L (5-37); Bilirubin Total 1.4 mg/dL (0.0-1.0); Blood Urea Nitrogen 11 mg/dL (9-16); Calcium 8.9 mg/dL (8.4-10.2); Carbon Dioxide 27 mmol/L (22-29); Chloride 102 mmol/L (96-108); Cholesterol 207 mg/dL; Estimated Glomerular Filt Rate > 60; Glucose Fasting 111 mg/dL (60-99); HDL Cholesterol 28 mg/dL; LDL Cholesterol Calculated 123 mg/dl; Potassium 3.6 mmol/L (3.3-5.1); Sodium 140 mmol/L (135-145); Total Protein 7.4 g/dL (6.5-8.0); Triglycerides 280 mg/dL
[2022-02-04 08:29] LABS: TSH reflex Free T4 2.21 uIU/mL (0.32-4.0); Vitamin D 25-OH Total 49.6 ng/mL (>30)
[2022-02-04 08:47] LABS: Appearance Urine Clear; Color Urine Yellow; Glucose Urine UA Negative (Negative); Leukocyte Esterase Urine Moderate (2+) (Negative); Nitrite Urine Negative (Negative); PH 6.5 (5.0-9.0); UMIC TRIGGER UACC YES; Urine Blood Negative (Negative); Urine Ketones Negative (Negative); Urine Protein Trace mg/dL (Neg-Trace)
[2022-02-04 08:54] LABS: Bacteria Urine 1+ (None Seen); Hyaline Casts Urine 0-2 /LPF (0-2); RBC Urine 0-2 /HPF (0-2); Squamous Epithelial Cell Urine 0-2 /HPF (0-2); UACC Culture Trigger YES; WBC Urine 21-50 /HPF (0-5)
== END 2022-02-04 06:57 | disposition home or self-care (01) ==
LOC: HO.LAB 06:56
PROVIDERS: PCP Internal Medicine; Visit Provider Internal Medicine
DX: E78.00 Pure hypercholesterolemia, unspecified (principal); E55.9 Vitamin D deficiency, unspecified; R73.01 Impaired fasting glucose; I10 Essential (primary) hypertension
CPT/HCPCS: 36415; 80053; 80061; 81001; 82306; 83036; 84443; 85025; 87086; 87088; 87186

== ENCOUNTER 2022-04-12 10:03 | Outpatient (REF) | payer MEDICARE, BC, SELFPAY ==
[2022-04-12 16:53] LABS: Urine Cytology See Pathology rpt
== END 2022-04-12 10:04 | disposition home or self-care (01) ==
LOC: HO.LAB 10:03
PROVIDERS: Visit Provider Urology
DX: C67.9 Malignant neoplasm of bladder, unspecified (principal)
CPT/HCPCS: 52000; 88112; 99212

== ENCOUNTER 2022-04-21 14:28 | Outpatient (REF) | payer MEDICARE, BC, SELFPAY ==
[2022-04-21 15:29] LABS: Appearance Urine Clear; Bacteria Urine None Seen (None Seen); Color Urine Yellow; Glucose Urine UA Negative (Negative); Hyaline Casts Urine 0-2 /LPF (0-2); Leukocyte Esterase Urine Negative (Negative); Nitrite Urine Negative (Negative); RBC Urine 0-2 /HPF (0-2); Squamous Epithelial Cell Urine 0-2 /HPF (0-2); UMIC TRIGGER UA YES; Urine Blood Negative (Negative); Urine Ketones Negative (Negative); Urine Protein 30 (1+) mg/dL (Neg-Trace); WBC Urine 0-5 /HPF (0-5)
== END 2022-04-21 14:29 | disposition home or self-care (01) ==
LOC: HO.LAB 14:28
PROVIDERS: Urology; PCP Internal Medicine; Visit Provider Psychiatry & Neurology Neurology
DX: Z85.51 Personal history of malignant neoplasm of bladder (principal)
CPT/HCPCS: 81001; 87086

== ENCOUNTER 2022-06-17 07:10 | Outpatient (REF) | payer MEDICARE, BC, SELFPAY ==
[2022-06-17 07:22] LABS: MANUAL DIFF FLAG NO
[2022-06-17 07:34] LABS: Basophils Absolute Auto 0.1 X10*3/uL (0.0-0.2); Basophils Percent Auto 0.9 % (0-2); Eosinophils Absolute Auto 0.2 X10*3/uL (0.0-0.4); Eosinophils Percent Auto 3.4 % (0-4); Hematocrit 45.3 % (42.0-52.0); Hemoglobin 15.6 g/dl (14.0-18.0); Imm Gran Abs Auto 0.01 X10*3/uL (0.00-0.03); Imm Gran Pct Auto 0.1 % (0.0-0.4); Lymphocytes Percent Auto 44.6 % (20-40); Mean Corpuscular HGB Conc 34.4 g/dl (31.0-36.0); Mean Corpuscular Hemoglobin 29.3 pg (27.0-33.0); Mean Platelet Volume 9.7 fL (9.4-12.4); Monocytes Absolute Auto 0.6 X10*3/uL (0.1-1.2); Monocytes Percent Auto 9.5 % (2-11); Neutrophils Absolute Auto 2.8 x10*3/uL (2.0-8.3); Neutrophils Percent Auto 41.5 % (45-73); Platelet Count 261 X10*3/uL (160-400); Red Blood Count 5.33 X10*6/uL (4.60-5.80); Red Cell Distribution Width 12.3 % (11.0-16.0); White Blood Count 6.8 X10*3/uL (4.8-10.8)
[2022-06-17 08:15] LABS: Alanine Aminotransferase 69 U/L (0-40); Albumin Level 4.6 g/dL (3.5-5.0); Alkaline Phosphatase 97 U/L (39-117); Anion Gap 17 (12-20); Aspartate Amino Transferase 44 U/L (5-37); Bilirubin Total 1.3 mg/dL (0.0-1.0); Blood Urea Nitrogen 15 mg/dL (9-16); Calcium 9.2 mg/dL (8.4-10.2); Carbon Dioxide 25 mmol/L (22-29); Chloride 104 mmol/L (96-108); Cholesterol 217 mg/dL; Estimated Glomerular Filt Rate > 60; Glucose Fasting 121 mg/dL (60-99); HDL Cholesterol 33 mg/dL; LDL Cholesterol Calculated 149 mg/dl; Potassium 3.5 mmol/L (3.3-5.1); Sodium 142 mmol/L (135-145); Total Protein 7.5 g/dL (6.5-8.0); Triglycerides 175 mg/dL
[2022-06-17 08:20] LABS: Appearance Urine Clear; Color Urine Yellow; Glucose Urine UA Negative (Negative); Leukocyte Esterase Urine Negative (Negative); Nitrite Urine Negative (Negative); Specific Gravity - Urine 1.015 (1.005-1.025); Urine Blood Negative (Negative); Urine Ketones 15 mg/dL (Negative); Urine Protein Negative (Neg-Trace)
[2022-06-17 08:24] LABS: TSH reflex Free T4 1.81 uIU/mL (0.32-4.0); Vitamin D 25-OH Total 52.1 ng/mL (>30)
== END 2022-06-17 07:11 | disposition home or self-care (01) ==
LOC: HO.LAB 07:10
PROVIDERS: PCP Internal Medicine; Visit Provider Internal Medicine
DX: R30.0 Dysuria (principal); I10 Essential (primary) hypertension; E55.9 Vitamin D deficiency, unspecified; E78.00 Pure hypercholesterolemia, unspecified
CPT/HCPCS: 36415; 80053; 80061; 81003; 82306; 84443; 85025

== ENCOUNTER 2022-07-15 09:42 | Outpatient (REF) | payer MEDICARE, BC, SELFPAY | END 2022-07-15 09:43 | disposition home or self-care (01) | LOC: HO.LAB 09:42 | PROVIDERS: PCP Internal Medicine; Visit Provider Urology | DX: C67.9 Malignant neoplasm of bladder, unspecified (principal); Z85.51 Personal history of malignant neoplasm of bladder | CPT/HCPCS: 52000; 88121 ==

== ENCOUNTER 2022-10-27 09:44 | Outpatient (REF) | payer MEDICARE, BC, SELFPAY ==
[2022-10-27 10:00] LABS: MANUAL DIFF FLAG NO
[2022-10-27 10:24] LABS: Basophils Absolute Auto 0.1 X10*3/uL (0.0-0.2); Basophils Percent Auto 0.8 % (0-2); Eosinophils Absolute Auto 0.2 X10*3/uL (0.0-0.4); Eosinophils Percent Auto 2.4 % (0-4); Hematocrit 43.6 % (42.0-52.0); Hemoglobin 15.2 g/dl (14.0-18.0); Imm Gran Abs Auto 0.01 X10*3/uL (0.00-0.03); Imm Gran Pct Auto 0.2 % (0.0-0.4); Lymphocytes Percent Auto 48.5 % (20-40); Mean Corpuscular HGB Conc 34.9 g/dl (31.0-36.0); Mean Corpuscular Hemoglobin 29.5 pg (27.0-33.0); Mean Corpuscular Volume 84.7 fL (80.0-98.0); Mean Platelet Volume 10.1 fL (9.4-12.4); Monocytes Absolute Auto 0.6 X10*3/uL (0.1-1.2); Monocytes Percent Auto 9.1 % (2-11); Neutrophils Absolute Auto 2.4 x10*3/uL (2.0-8.3); Platelet Count 263 X10*3/uL (160-400); Red Blood Count 5.15 X10*6/uL (4.60-5.80); Red Cell Distribution Width 12.6 % (11.0-16.0); White Blood Count 6.2 X10*3/uL (4.8-10.8)
[2022-10-27 11:01] LABS: Estimated Average Glucose 123 mg/dL; Hemoglobin A1c % 5.9 %
[2022-10-27 11:04] LABS: Alanine Aminotransferase 81 U/L (0-40); Albumin Level 4.4 g/dL (3.5-5.0); Alkaline Phosphatase 80 U/L (39-117); Anion Gap 11 (12-20); Aspartate Amino Transferase 54 U/L (5-37); Bilirubin Total 1.3 mg/dL (0.0-1.0); Blood Urea Nitrogen 9 mg/dL (9-16); Calcium 9.2 mg/dL (8.4-10.2); Carbon Dioxide 27 mmol/L (22-29); Chloride 104 mmol/L (96-108); Cholesterol 209 mg/dL; Estimated Glomerular Filt Rate > 60; Glucose Fasting 109 mg/dL (60-99); HDL Cholesterol 28 mg/dL; LDL Cholesterol Calculated 118 mg/dl; Potassium 3.1 mmol/L (3.3-5.1); Sodium 139 mmol/L (135-145); Total Protein 7.6 g/dL (6.5-8.0); Triglycerides 319 mg/dL
[2022-10-27 11:10] LABS: Appearance Urine Clear; Color Urine Yellow; Glucose Urine UA Negative (Negative); Leukocyte Esterase Urine Negative (Negative); Nitrite Urine Negative (Negative); Specific Gravity - Urine <= 1.005 (1.005-1.025); Urine Blood Negative (Negative); Urine Ketones Negative (Negative); Urine Protein Negative (Neg-Trace)
[2022-10-27 11:19] LABS: Vitamin D 25-OH Total 61.1 ng/mL (>30)
== END 2022-10-27 09:45 | disposition home or self-care (01) ==
LOC: HO.LAB 09:44
PROVIDERS: PCP Internal Medicine; Visit Provider Internal Medicine
DX: I10 Essential (primary) hypertension (principal); E78.00 Pure hypercholesterolemia, unspecified; R30.0 Dysuria; R73.01 Impaired fasting glucose; E55.9 Vitamin D deficiency, unspecified
CPT/HCPCS: 36415; 80053; 80061; 81003; 82306; 83036; 84443; 85025

== ENCOUNTER 2022-11-15 09:00 | Outpatient (AMB) | payer MEDICARE, BC, SELFPAY ==
--- NOTE | 2022-11-15 09:16 | A.OFFVIS_ITS ---
Intake Intake Visit Reasons: 4m follow up Intake Note: Patient is present for Follow Up Urology Med: None Antibiotic Allergy: Amoxicillin Blood Thinner: None Urine will be sent for cytology Allergies amoxicillin Allergy (Severe, Verified 11/15/22 09:17) hives codeine [CODEINE] Adverse Reaction (Mild, Verified 11/15/22 09:17) NAUSEA oxycodone [From PERCOCET] Adverse Reaction (Mild, Verified 11/15/22 09:17) NAUSEA & VOMITING HPI HPI Comments History of Present Illness Details Linwood is a pleasant male. He is a patient of Dr. Holman. He is seen for the following urologic conditions - superficial bladder cancer - scrotal angiokeratoma Check cystoscopy normal Plan 4 month follow-up with 3 week boost Review of scrotal angiokeratoma which are stable PSA 10/20 2.6 Bladder cancer June 2020 superficial high-grade bladder cancer - recurrent august 2018, January 2019 Prior history of superficial bladder cancer. TURBT August 2018 superficial high-grade, January 2019 superficial high-grade, Jun 2020 superficial high-grade Adjuvant therapy January 2019 induction BCG with boost, July 2020 induction gemcitabine, November 2020 boost gemcitabine, June 2021 boost gemcitabine, January 2022 Gemcitabine Cystoscopy - December 2019 NAD - June 2020 small lesion in bladder - Nov 2020 NAD, March 2021 NAD, August 2021 NAD, Mar 2022 patchy areas of redness, 11/20 NAD Cytology - 03/21 Negative, 06/22 Negative, 09/19 rare atypical, 04/21 atypical Four month follow-up cysto PFSH Medical History Benign essential hypertension Diplopia GERD (gastroesophageal reflux disease) Hiatal hernia Hx of bladder cancer Impaired fasting glucose Insomnia Murmur Obesity (BMI 30-39.9) Pure hypercholesterolemia Urothelial carcinoma of bladder Vitamin D deficiency Surgical History H/O arthroscopy of knee History of biopsy of bladder History of bladder surgery History of cataract surgery History of colonoscopy History of esophagogastroduodenoscopy (EGD) History of hemorrhoidectomy Family History Father Hypertension Stroke Acute CVA (cerebrovascular accident) Mother Hypertension Diabetes CVD (cardiovascular disease) Brother In good health Social History Housing: House Alcohol intake: current Alcohol intake frequency: a few times a week Alcohol type: beer Patient Tobacco Use Status: Former Tobacco user e-Cigarette/Vaping Use: Never Used Second Hand Smoke Exposure: Yes service: Yes ([email or web address]) Current occupational status: retired Cognitive needs: No Hearing needs: No Vision needs: Yes Review of Systems Const Denies chills and Denies fever(s) Card Reports no additional complaints and Denies syncope Resp Denies cough GI Denies abdominal pain and Denies heartburn Reports as per HPI and Denies change in libido Neuro Denies syncope Psych Denies change in libido Endo Denies change in libido Physical Exam Const General: cooperative, healthy appearing, comfortable and no acute distress Orientation/consciousness: patient oriented x3 HEENT Face and sinus: Yes normal facial exam Mouth: moist mucous membranes Neck Neck: Yes normal visual inspection, Yes full ROM and Yes trachea midline Chest Chest palpation & inspection: normal inspection of the chest Resp Effort & Inspection: normal respiratory effort, able to speak in complete sentences and no respiratory distress GI Inspection: Yes normal to inspection Back/Spine/Pelvis Cervical Spine: normal cervical lordosis Thoracic/Lumbar Spine: thoracic and lumbar spine normal to inspection Skin General skin exam: no rashes or lesions noted Neuro General: patient oriented x3, gait normal, tone normal and moves all extremities Extrem General: Yes normal to inspection and Yes capillary refill normal Office Procedures Cystoscopy Consent Discussed risk and benefit or proposed procedure with the patient. Information consent for procedure given to the patient. Discussed technical aspects, risks, benefits and alternatives in full. Addressed all of the patient's questions and concerns regarding the procedure. The patient demonstrated knowledge and understanding. They wish to proceed with this procedure. Preparation The patient was prepped in the usual manner. A hat forming machine operator was present and in the room. Genitalia was prepped with betadine solution in a sterile manner. Lidocaine Jelly 2% was placed into the urethra and 16Fr flexible Olympus cystoscope was inserted into the meatus after adequate lubrication. Procedure Meatus circumcised Urethra anterior posterior urethra normal Prostatic Urethra trilobar hypertrophy Bladder examination with retroflexion of cystoscope Bladder Orifices normal shape and position Bladder Capacity large Trabeculations grade 2 Cellule Formation - Diverticulum Formation - Mucosal Erythema - Bladder Tumor - [id number] Procedure code (CPT) selection complete Office Meds lidocaine HCl Performing Provider: Vince Alvarez MD Administered by: ERIS Edwards on 11/15/22 09:55 Dose Route Admin Location Lot Number Expiration Date ND Title I Coordinator 10 mL intra-urethral nitrofurantoin monohyd/m-cryst 100 mg Performing Provider: Vince Alvarez MD Administered by: ERIS Edwards on 11/15/22 09:55 Dose Route Admin Location Lot Number Expiration Date ND Title I Coordinator 100 mg PO Results AMB Urinalysis, Automated UA Leukoctes 0 Jer/uL Last Edit by EIRS Edwards on 11/15/22 09:25 UA Nitrite Negative Last Edit by Alejandra Wynn Chayito on 11/15/22 09:25 UA Urobilinogen 0.2 mg/dL Last Edit by CONCHIS EdwardsA on 11/15/22 09:2 5 UA Protein 15 mg/dL Last Edit by Alejandra Wynn Chayito on 11/15/22 09:25 UA pH 6.0 Last Edit by Alejandra Wynn [facility] on 11/15/22 09:25 UA Blood 0 Navin/uL Last Edit by ERIS Edwards on 11/15/22 09:25 UA Specific Cardinal 1.015 Last Edit by CONCHIS EdwardsA on 11/15/22 09: 25 UA Ketone Negative Last Edit by ERIS Edwards on 11/15/22 09:25 UA Bilirubin 0 mg/dL Last Edit by Alejandra Wynn [facility] on 11/15/22 09:25 UA Glucose 0 mg/dL Last Edit by Alejandra Wynn [facility] on 11/15/22 09:25 Results Reviewed Results Reviewed: Laboratory Last Values Urine pH (Auto) 6.0 11/15/22 09:17 Specific Cardinal (Auto) 1.015 11/15/22 09:17 Urine Protein (Auto) 15 mg/dL 11/15/22 09:17 Glucose (UA)(Auto) 0 mg/dL 11/15/22 09:17 Urine Ketones (Auto) Negative 11/15/22 09:17 Urine Blood (Auto) 0 Navin/uL 11/15/22 09:17 Urine Nitrite (Auto) Negative 11/15/22 09:17 Urine Bilirubin (Auto) 0 mg/dL 11/15/22 09:17 Urine Urobilinogen (Auto) 0.2 mg/dL 11/15/22 09:17 Leukocyte Esterase (Auto) 0 Jer/uL 11/15/22 09:17 Assessment & Plan Assessment & Plan (1) Urothelial carcinoma of bladder: Comment: Recurrent superficial high-grade June 2020 - good response to topical therapy Code(s): C67.9 - Malignant neoplasm of bladder, unspecified (2) Angiokeratoma of scrotum: Code(s): D29.4 - Benign neoplasm of scrotum Plan Four month follow-up cysto Orders: Orders Urine Cytology Today Z85.51 - Personal history of malignant neoplasm of bladder AMB Cystoscopy Today Z85.51 - Personal history of malignant neoplasm of bladder AMB Urinalysis Automated Today Z13.9 - Encounter for screening, unspecified Patient Instructions: Imaging studies, laboratory and physical exam results were discussed and reviewed in detail. No major barriers to patient understanding were identified. An opportunity to ask questions regarding the treatment plan was provided. All questions were answered. The patient expressed understanding and agreement with the above treatment plan. The patient is aware they should contact our office by phone for worsening of their current condition or the appearance of new urologic symptoms. Compliance is encouraged with any medications and followup testing that is ordered. It is a privilege to participate in the urologic care of your patient. If you have any questions or concerns regarding treatment for the above conditions, or other urologic issues, please do not hesitate to contact me. The office telephone contact is [phone]. This note is constructed using voice recognition software. While every effort has been made to ensure accuracy capacity planning analyst errors may have been included. Yours sincerely, Dr Vince Alvarez MD, [facility] - Urology Providers of Expert, Compassionate Care for the Genitourinary System Coding Level of Care Code Est Pt Level 3 (07581) Diagnoses Urothelial carcinoma of bladder C67.9 Angiokeratoma of scrotum D29.4 CPT Codes Cystoscopy - CPT: 35188-[id number] ([id number])
== END 2022-11-15 10:25 | disposition home or self-care (01) ==
PROVIDERS: Visit Provider Urology
DX: C67.8 Malignant neoplasm of overlapping sites of bladder (principal); D29.4 Benign neoplasm of scrotum; Z85.51 Personal history of malignant neoplasm of bladder
CPT/HCPCS: 52000; 99213

== ENCOUNTER 2022-11-15 09:00 | Outpatient (REF) | payer MEDICARE, BC, SELFPAY ==
[2022-11-18 07:07] LABS: Urine Cytology See Pathology rpt
== END 2022-11-15 09:01 | disposition home or self-care (01) ==
LOC: HO.LAB 09:00
PROVIDERS: Visit Provider Urology
DX: C67.9 Malignant neoplasm of bladder, unspecified (principal); D29.4 Benign neoplasm of scrotum; Z85.51 Personal history of malignant neoplasm of bladder
CPT/HCPCS: 52000; 88112; 99212

== ENCOUNTER 2023-03-02 07:02 | Outpatient (REF) | payer MEDICARE, BC, SELFPAY ==
[2023-03-02 07:12] LABS: MANUAL DIFF FLAG NO
[2023-03-02 08:08] LABS: Basophils Absolute Auto 0.1 X10*3/uL (0.0-0.2); Eosinophils Absolute Auto 0.2 X10*3/uL (0.0-0.4); Eosinophils Percent Auto 3.2 % (0-4); Hemoglobin 16.1 g/dl (14.0-18.0); Imm Gran Abs Auto 0.01 X10*3/uL (0.00-0.03); Imm Gran Pct Auto 0.2 % (0.0-0.4); Lymphocytes Absolute Auto 2.8 X10*3/uL (1.2-4.9); Lymphocytes Percent Auto 45.2 % (20-40); Mean Corpuscular HGB Conc 34.3 g/dl (31.0-36.0); Mean Corpuscular Hemoglobin 29.6 pg (27.0-33.0); Mean Corpuscular Volume 86.4 fL (80.0-98.0); Mean Platelet Volume 10.4 fL (9.4-12.4); Monocytes Absolute Auto 0.6 X10*3/uL (0.1-1.2); Monocytes Percent Auto 8.8 % (2-11); Neutrophils Absolute Auto 2.6 x10*3/uL (2.0-8.3); Neutrophils Percent Auto 41.6 % (45-73); Platelet Count 266 X10*3/uL (160-400); Red Blood Count 5.44 X10*6/uL (4.60-5.80); Red Cell Distribution Width 12.7 % (11.0-16.0); White Blood Count 6.3 X10*3/uL (4.8-10.8)
[2023-03-02 08:12] LABS: Estimated Average Glucose 123 mg/dL; Hemoglobin A1c % 5.9 % (<6.0)
[2023-03-02 08:27] LABS: Alanine Aminotransferase 92 U/L (0-40); Albumin Level 4.7 g/dL (3.5-5.0); Alkaline Phosphatase 79 U/L (39-117); Anion Gap 14 (12-20); Aspartate Amino Transferase 58 U/L (5-37); Blood Urea Nitrogen 10 mg/dL (9-16); Calcium 9.6 mg/dL (8.4-10.2); Carbon Dioxide 28 mmol/L (22-29); Chloride 103 mmol/L (96-108); Cholesterol 218 mg/dL (<200); Estimated Glomerular Filt Rate > 60; Glucose Fasting 127 mg/dL (60-99); HDL Cholesterol 32 mg/dL (>40); LDL Cholesterol Calculated 119 mg/dL (<100); Potassium 3.4 mmol/L (3.3-5.1); Sodium 142 mmol/L (135-145); Triglycerides 337 mg/dL (<150)
[2023-03-02 08:46] LABS: TSH reflex Free T4 1.82 uIU/mL (0.32-4.0); Vitamin D 25-OH Total 79.7 ng/mL (>30)
[2023-03-02 09:02] LABS: Appearance Urine Clear; Color Urine Yellow; Glucose Urine UA Negative (Negative); Leukocyte Esterase Urine Negative (Negative); Nitrite Urine Negative (Negative); PH 6.5 (5.0-9.0); Specific Gravity - Urine 1.015 (1.005-1.025); UMIC TRIGGER UACC YES; Urine Blood Negative (Negative); Urine Ketones Negative (Negative); Urine Protein 30 (1+) mg/dL (Neg-Trace)
[2023-03-02 09:04] LABS: Bacteria Urine None Seen (None Seen); Hyaline Casts Urine 0-2 /LPF (0-2); RBC Urine 0-2 /HPF (0-2); Squamous Epithelial Cell Urine 0-2 /HPF (0-2); WBC Urine 0-5 /HPF (0-5)
== END 2023-03-02 07:03 | disposition home or self-care (01) ==
LOC: HO.LAB 07:02
PROVIDERS: PCP Internal Medicine; Visit Provider Internal Medicine
DX: I10 Essential (primary) hypertension (principal); R73.01 Impaired fasting glucose; E78.00 Pure hypercholesterolemia, unspecified; E55.9 Vitamin D deficiency, unspecified; R30.0 Dysuria
CPT/HCPCS: 36415; 80053; 80061; 81001; 81003; 82306; 83036; 84443; 85025

== ENCOUNTER 2023-03-06 09:16 | Outpatient (AMB) | payer MEDICARE, BC, SELFPAY ==
[2023-03-06 09:18] VITALS: BP 124/80; PULSE 80; O2SAT 96; BMI 31.8
--- NOTE | 2023-03-06 09:18 | A.OFFPC_ITS ---
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 Accompanied by: Self / Same As Patient Allergies amoxicillin Allergy (Severe, Verified 03/06/23 09:52) hives codeine [CODEINE] Adverse Reaction (Mild, Verified 03/06/23 09:52) NAUSEA oxycodone [From PERCOCET] Adverse Reaction (Mild, Verified 03/06/23 09:52) NAUSEA & VOMITING Medication List - Last Reconciled 03/06/23 by Augusto Holman MD amlodipine 10 mg PO DAILY 90 days calcium carbonate (Calcium) 600 mg PO DAILY diphenhydramine HCl (Allergy (diphenhydramine)) 50 mg PO BEDTIME hydralazine 25 mg PO TID 90 days losartan 100 mg PO DAILY 90 days metoprolol tartrate 25 mg PO BID 90 days multivitamin (Daily Multi-Vitamin tablet) 1 tab PO DAILY omeprazole 20 mg PO DAILY Tobacco use date assessed: 03/06/23 Fall risk assessment: No Falls in past year Last assessed Fall Risk: 03/06/23 Dental Screening Dental Screen Date: 03/06/23 Did you have a dental visit in the last 12 months?: Yes Did you have a dental problem in the last 6 months where you did not have access to dental care?: No Was dental information given to patient?: Patient has dentist HPI HTN, hyperlipidemia, Hx of bladder CA HPI Details Patient comes in today for his follow up visit States that he feels okay He denies any headaches or dizziness Denies any chest pains, no SOB No nausea/vomiting, no abdominal pain No change in bowel habits noted Had his follow up labs done last week - to discuss his results States that he is scheduled to see Dr. Alvarez next week for urology follow up and he is considering another round of treatment for his bladder cancer prophylactically [facility] Medical History Diplopia Hiatal hernia Hx of bladder cancer Murmur Obesity (BMI 30-39.9) Insomnia Urothelial carcinoma of bladder Vitamin D deficiency GERD (gastroesophageal reflux disease) Impaired fasting glucose Pure hypercholesterolemia Benign essential hypertension Surgical History History of esophagogastroduodenoscopy (EGD) History of biopsy of bladder History of cataract surgery History of bladder surgery History of colonoscopy H/O arthroscopy of knee History of hemorrhoidectomy Family History Father Hypertension Stroke Acute CVA (cerebrovascular accident) Mother Hypertension Diabetes CVD (cardiovascular disease) Brother In good health Social History Housing: House Alcohol intake: current Alcohol intake frequency: a few times a week Alcohol type: beer Patient Tobacco Use Status: Former Tobacco user e-Cigarette/Vaping Use: Never Used Second Hand Smoke Exposure: Yes service: Yes ([employer]) Current occupational status: retired Cognitive needs: No Hearing needs: No Vision needs: Yes Questionnaire PHQ-9 Over the last 2 weeks, how often have you been bothered by any of the following problems? 1. Little interest or pleasure in doing things: not at all 2. Feeling down, depressed, or hopeless: not at all 3. Trouble falling or staying asleep, or sleeping too much: not at all 4. Feeling tired or having little energy: not at all 5. Poor appetite or overeating: not at all 6. Feeling bad about yourself - or that you are a failure or have let yourself or your family down: not at all 7. Trouble concentrating on things, such as reading the newspaper or watching television: not at all 8. Moving or speaking so slowly that other people could have noticed. Or the opposite - being so fidgety or restless that you have been moving around a lot m ore than usual: not at all 9. Thoughts that you would be better off or of hurting yourself in some way: not at all Total score: 0 Depression Screening Interpretation: Negative Depression Screening Done: Yes 56947 - PHQ-9 Billing: Yes Source: Developed by Drs. Norm Elmore, Ana Shipman, Wojciech Campos and colleagues, with an educational daniel from [employer]. Thrive Questionnaire Date Thrive assessed: 03/06/23 I am a: Patient What is your living situation today?: I have a steady place to live Within the past 12 months, did the food you bought not last and you didn't have the money to get more?: Never true Within the past 12 months, did you worry whether your food would run out before you got money to buy more?: Never true Do you have trouble paying for medicines?: No Do you have trouble getting transportation to medical appointments?: No Do you have trouble paying your heating and electricity bill?: No Do you have trouble taking care of your child, family member or friend?: No Do you have trouble with day-to-day activities such as bathing, preparing meals, shopping, managing finances, etc.?: No Are you currently unemployed and looking for a job?: No Are you interested in more education?: No Currently or been in a relationship where the following occur: no concerns repor chevy AUDIT C Alcohol Use Questionnaire (AUDIT-C) 1. How often do you have a drink containing alcohol?: 2-4 times a month 2. How many drinks containing alcohol do you have on a typical day when you are drinking?: 1 or 2 3. How often do you have six or more drinks on one occasion?: Never Total Score: 2 Score Reviewed/Action Taken: Yes BRONWYN-7 AMB Questionnaire BRONWYN-7 Date BRONWYN - 7 assessed: 03/06/23 Feeling nervous, anxious, or on edge: 0 = Not at all Not being able to stop or control worryin = Not at all Worrying too much about different things: 0 = Not at all Trouble relaxin = Not at all Being so restless that it is hard to sit still: 0 = Not at all Becoming easily annoyed or irritable: 0 = Not at all Feeling afraid as if something awful might happen: 0 = Not at all Total BRONWYN-7 score (0-4 normal; 5-9 mild; 10-14 moderate; 15-21 severe): 0 Source: Developed by Drs. Norm Elmore, Ana Shipman, Wojciech Campos and colleagues, with an educational daniel from [employer]. BRONWYN-7 Assessment Billing BRONWYN-7 Assessment Tool: BRONWYN-7 Assessment [id number] Review of Systems Const Denies fatigue, Denies fever(s) and Denies headache(s) ENT Denies dysphagia, Denies dizziness, Denies otalgia, Denies headache(s), Denies neck pain, Denies odynophagia and Denies sore throat Card Denies chest pain, Denies palpitations and Denies dyspnea Resp Denies cough and Denies dyspnea GI Denies abdominal pain, Denies constipation, Denies dysphagia, Denies heartburn, Denies diarrhea, Denies nausea, Denies odynophagia and Denies vomiting Denies hematuria, Denies dysuria, Denies nocturia and Denies urinary frequency Musc Denies neck pain Skin/Breast Denies rash Neuro Denies dizziness and Denies headache(s) Endo Denies fatigue and Denies palpitations Physical exam (Primary Care) Vital Signs: Last Vital Signs Pulse 80 03/06/23 09:18 BP 124/80 03/06/23 09:18 Pulse Ox 96 03/06/23 09:18 Oxygen Delivery Method Room Air 03/06/23 09:18 BMI result Body Mass Index 31.8 Tobacco/Smoking Status: Tobacco use Status Tobacco use date assessed 03/06/23 03/06/23 09:20 Patient Tobacco Use Status Former Tobacco user 03/06/23 09:20 e-Cigarette/Vaping Use Never Used 03/06/23 09:20 PHQ-9: PHQ-9 Score PHQ-9: Total score 0 03/06/23 09:26 Depression Screening Interpretation: Negative Thrive Assessment: Date of Thrive Assessment Date Thrive assessed 03/06/23 03/06/23 09:20 Currently or been in a relationship where the following occur: no concerns reported Const General: no acute distress and alert HENMT Ears: TM's normal bilaterally and EAC's normal Throat: Yes posterior oropharynx normal and Yes tonsils normal (no TP congestion noted) Neck Neck: Yes no lymphadenopathy and Yes supple Resp Auscultation: clear to auscultation bilaterally, no rales and no wheezes Cardio Rate: regular rate Rhythm: regular rhythm Heart sounds: no murmurs GI Palpation (GI): Soft to palpation and nontender Auscultation: normal bowel sounds General: Yes no CVA tenderness Back/Spine/Pelvis Back: no CVA tenderness Thoracic/Lumbar Spine: thoracic and lumbar spine normal to inspection Skin Rashes: no rashes Extrem General: Yes no clubbing, cyanosis or edema Results Reviewed Results Reviewed: Laboratory Tests 10/27/22 10/27/22 10/27/22 09:57 09:57 09:57 WBC Hgb Hct Plt Count Sodium Potassium Creatinine Estimated GFR Hemoglobin A1c % Calcium AST 54 H ALT 81 H Triglycerides 319 Cholesterol 209 LDL Cholesterol, Calc 118 HDL Cholesterol 25-OH Vitamin D Total TSH Ur Specific [place] Urine Protein Urine Glucose (UA) Urine Blood 10/27/22 03/02/23 03/02/23 09:57 07:11 07:11 WBC 6.3 Hgb 16.1 Hct 47.0 Plt Count 266 Sodium 142 Potassium 3.4 Creatinine 0.84 Estimated GFR > 60 Hemoglobin A1c % 5.9 Calcium 9.6 AST 58 H ALT Triglycerides 337 H Cholesterol 218 H LDL Cholesterol, Calc HDL Cholesterol 28 25-OH Vitamin D Total TSH Ur Specific [place] Urine Protein Urine Glucose (UA) Urine Blood 03/02/23 03/02/23 03/02/23 07:11 07:11 07:11 WBC Hgb Hct Plt Count Sodium Potassium Creatinine Estimated GFR Hemoglobin A1c % Calcium AST ALT 92 H Triglycerides Cholesterol LDL Cholesterol, Calc 119 H HDL Cholesterol 32 L 25-OH Vitamin D Total 79.7 TSH 1.82 Ur Specific [place] Urine Protein Urine Glucose (UA) Urine Blood 03/02/23 07:55 WBC Hgb Hct Plt Count Sodium Potassium Creatinine Estimated GFR Hemoglobin A1c % Calcium AST ALT Triglycerides Cholesterol LDL Cholesterol, Calc HDL Cholesterol 25-OH Vitamin D Total TSH Ur Specific [place] 1.015 Urine Protein 30 (1+) H Urine Glucose (UA) Negative Urine Blood Negative Laboratory Tests 03/02/23 07:11 Fasting Glucose 127 H Hemoglobin A1c % 5.9 Assessment and Plan Assessment & Plan (1) Benign essential hypertension: Code(s): I10 - Essential (primary) hypertension Plan: Reinforced low sodium diet - goal is systolic BP of at least 140 to 150 mm or less His BP appears much better today - Hydralazine was increased to TID dosing at his last visit Continue Losartan 100 mg QD, Amlodipine 10 mg QD, Metoprolol 25 mg BID and Hydralazine 25 mg TID He is reminded to continue monitoring his blood pressure regularly (2) Pure hypercholesterolemia: Code(s): E78.00 - Pure hypercholesterolemia, unspecified Plan: Results of his labs done last week reviewed and discussed with patient - cautioned that his serum TG has increased again slightly from previous; his LDL cholesterol and total cholesterol numbers are mostly unchanged Reinforced low cholesterol diet; admits that he has been eating a lot of preserved / canned / frozen foods lately Patient prefers to continue with diet modification and avoid statins - had myalgias while on statins in the past Will recheck his labs and fasting lipids in 4 months for follow up - advised that if his TG level does not improve, should consider trying him on fibrates, which are not statins (3) Impaired fasting glucose: Code(s): R73.01 - Impaired fasting glucose Plan: Reinforced low calorie diet/exercise as tolerated FBS was at 127 mg/dl on his labs done last week; HgbA1c was still at 5.9% (was at 5.9% as well a few months ago) Will continue to monitor his blood sugar and glycemic control regularly (4) GERD (gastroesophageal reflux disease): Code(s): K21.9 - Gastro-esophageal reflux disease without esophagitis Qualifiers: Esophagitis presence: without esophagitis Qualified Code(s): K21.9 - Gastro-esophageal reflux disease without esophagitis Plan: Dietary restrictions reinforced Continue Prilosec OTC 20 mg QD Biopsy of the GE junction done at his last EGD showed (+) mild chronic active inflammation consistent with GERD Follow up with GI as scheduled (5) Elevated LFTs: Code(s): R79.89 - Other specified abnormal findings of blood chemistry Plan: LFTs are still elevated and have gone up further on his recent labs, most likely due to hepatosteatosis Will send him for abdominal US for further evaluation (CT done back in 2016 rev ealed hepatosteatosis) Will continue to monitor his LFTs regularly (6) Vitamin D deficiency: Code(s): E55.9 - Vitamin D deficiency, unspecified Plan: Corrected - continue Vitamin D 2000 units QD (7) Urothelial carcinoma of bladder: Comment: Recurrent superficial high-grade June 2020 - good response to topical therapy Code(s): C67.9 - Malignant neoplasm of bladder, unspecified Plan: S/P TURBT on 09/27/[address] - pathology showed papillary urothelial carcinoma, high grade with no evidence of invasion into the muscularis propia S/P biopsy and coagulation (x3) of tumors and also S/P BCG Tx (for recurrence of his bladder cancer) - cystoscopy done a couple of years ago reportedly came out okay and repeat procedures in June 2019 and November 2019 also came out negative Repeat biopsy done last year showed (+) recurrence of his bladder cancer and he is S/P surgery/resection by Dr. Alvarez on 07/06/2020 States that he was told at his last visit that everything looked good S/P intravesical immunotherapy with Gemcitabine and states that Dr. Alvarez is considering another round of prophylactic Tx at his next visit next week Follow up with urology as scheduled (8) Insomnia: Code(s): G47.00 - Insomnia, unspecified Qualifiers: Insomnia type: unspecified Qualified Code(s): G47.00 - Insomnia, unspecified Plan: Sleep hygiene reinforced Continue Diphenhydramine 25 mg Q HS PRN (9) Obesity (BMI 30-39.9): Code(s): E66.9 - Obesity, unspecified Plan: Reinforced diet/exercise as tolerated/lose weight Plan Follow up in 4 months Orders: Orders Complete Blood Count Auto Diff 4 Months I10 - Essential (primary) hypertension TSH reflex Free T4 4 Months E78.00 - Pure hypercholesterolemia, unspecified Hemoglobin A1c 4 Months R73.01 - Impaired fasting glucose US abdomen complete Today R79.89 - Other specified abnormal findings of blood chemistry Comprehensive [place]. Panel Fast 4 Months E78.00 - Pure hypercholesterolemia, unspecified Lipid Panel 4 Months E78.00 - Pure hypercholesterolemia, unspecified UA CC w/rflx Micro + Cult 4 Months R30.0 - Dysuria Vitamin D 25-OH Total 4 Months E55.9 - Vitamin D deficiency, unspecified Coding Level of Care Code Est Pt Level 4 (48800) Diagnoses Benign essential hypertension I10 Pure hypercholesterolemia E78.00 Impaired fasting glucose R73.01 Gastroesophageal reflux disease without esophagitis K21.9 Esophagitis presence: without esophagitis Elevated LFTs R79.89 Vitamin D deficiency E55.9 Urothelial carcinoma of bladder C67.9 Insomnia, unspecified type G47.00 Insomnia type: unspecified Obesity (BMI 30-39.9) E66.9 Additional Codes BRONWYN-7 Assessment Billing - BRONWYN-7 Assessment Tool: BRONWYN-7 Assessment [id number] ([id number])
== END 2023-03-06 10:07 | disposition home or self-care (01) ==
PROVIDERS: PCP Internal Medicine; Visit Provider Internal Medicine
DX: I10 Essential (primary) hypertension (principal); E78.00 Pure hypercholesterolemia, unspecified; C67.9 Malignant neoplasm of bladder, unspecified; R73.01 Impaired fasting glucose; K21.9 Gastro-esophageal reflux disease without esophagitis; R79.89 Other specified abnormal findings of blood chemistry; E55.9 Vitamin D deficiency, unspecified; G47.00 Insomnia, unspecified
CPT/HCPCS: 99214

== ENCOUNTER 2023-03-14 08:45 | Outpatient (AMB) | payer MEDICARE, BC, SELFPAY ==
--- NOTE | 2023-03-14 08:55 | A.OFFVIS_ITS ---
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 He is a patient of Dr. Holman. 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 TURBT August 2018 superficial high-grade, January 2019 superficial high-grade, Jun 2020 superficial high-grade Adjuvant therapy January 2019 induction BCG with boost, July 2020 induction gemcitabine, November 2020 boost gemcitabine, June 2021 boost gemcitabine, January 2022 Gemcitabine Cystoscopy - December 2019 NAD - June 2020 small lesion in bladder - Nov 2020 NAD, March 2021 NAD, August 2021 NAD, Mar 2022 patchy areas of redness, 11/20 NAD, 03/23 NAD Cytology - 03/21 Negative, 06/22 Negative, 09/19 rare atypical, 04/21 atypical Six month follow-up cystoscopy ON LICENSE OF [facility] Medical History Diplopia Hiatal hernia Hx of bladder cancer Murmur Obesity (BMI 30-39.9) Insomnia Urothelial carcinoma of bladder Vitamin D deficiency GERD (gastroesophageal reflux disease) Impaired fasting glucose Pure hypercholesterolemia Benign essential hypertension Surgical History History of esophagogastroduodenoscopy (EGD) History of biopsy of bladder History of cataract surgery History of bladder surgery History of colonoscopy H/O arthroscopy of knee History of hemorrhoidectomy Family History Father Hypertension Stroke Acute CVA (cerebrovascular accident) Mother Hypertension Diabetes CVD (cardiovascular disease) Brother In good health Social History Housing: House Alcohol intake: current Alcohol intake frequency: a few times a week Alcohol type: beer Patient Tobacco Use Status: Former Tobacco user e-Cigarette/Vaping Use: Never Used Second Hand Smoke Exposure: Yes service: Yes ([employer]) Current occupational status: retired Cognitive needs: No Hearing needs: No Vision needs: Yes Review of Systems Const Denies chills and Denies fever(s) Card Reports no additional complaints and Denies syncope Resp Denies cough GI Denies abdominal pain and Denies heartburn Reports as per HPI and Denies change in libido Neuro Denies syncope Psych Denies change in libido Endo Denies change in libido Physical Exam Const General: cooperative, healthy appearing, comfortable and no acute distress Orientation/consciousness: patient oriented x3 HEENT Face and sinus: Yes normal facial exam Mouth: moist mucous membranes Neck Neck: Yes normal visual inspection, Yes full ROM and Yes trachea midline Chest Chest palpation & inspection: normal inspection of the chest Resp Effort & Inspection: normal respiratory effort, able to speak in complete sentences and no respiratory distress GI Inspection: Yes normal to inspection Back/Spine/Pelvis Cervical Spine: normal cervical lordosis Thoracic/Lumbar Spine: thoracic and lumbar spine normal to inspection Skin General skin exam: no rashes or lesions noted Neuro General: patient oriented x3, gait normal, tone normal and moves all extremities Extrem General: Yes normal to inspection and Yes capillary refill normal Office Procedures Cystoscopy Consent Discussed risk and benefit or proposed procedure with the patient. Information consent for procedure given to the patient. Discussed technical aspects, risks, benefits and alternatives in full. Addressed all of the patient's questions and concerns regarding the procedure. The patient demonstrated knowledge and understanding. They wish to proceed with this procedure. Preparation The patient was prepped in the usual manner. A auto salvage worker was present and in the room. Genitalia was prepped with betadine solution in a sterile manner. Lidocaine Jelly 2% was placed into the urethra and 16Fr flexible Olympus cystoscope was inserted into the meatus after adequate lubrication. Procedure Meatus circumcised Urethra anterior posterior to the normal Prostatic Urethra unremarkable Bladder examination with retroflexion of cystoscope Bladder Orifices normal shape and position Bladder Capacity medium Trabeculations grade 1 Cellule Formation - Diverticulum Formation - Mucosal Erythema - Bladder Tumor - [id number] DISPOSABLE SCOPE URO-G FLEXIBLE SCOPE Procedure code (CPT) selection complete Office Meds lidocaine HCl 2 % mucosal jelly in applicator Performing Provider: Vince Alvarez MD Performing Location[place] [facility] Administered by: Crista Caldwell RN on 03/14/23 09:02 Dose Route Admin Location Dispensed Lot Number Expiration Date [facility] Bpm Solution Architect 10 mL intra-urethral 10 mL nitrofurantoin monohydrate/macrocrystals 100 mg capsule Performing Provider: Vince Alvarez MD Performing Location[place] [facility] Administered by: Crista Caldwell RN on 03/14/23 09:02 Dose Route Admin Location Dispensed Lot Number Expiration Date ND Bpm Solution Architect 100 mg PO 1 cap naproxen 500 mg tablet Performing Provider: Vince Alvarez MD Performing Location: [facility] Administered by: Crista Caldwell RN on 03/14/23 09:02 Dose Route Admin Location Dispensed Lot Number Expiration Date ND Bpm Solution Architect 500 mg PO 1 tab Results AMB Urinalysis, Automated UA Leukoctes 0 Jer/uL Last Edit by ERIS Gomez on 03/14/23 09:00 UA Nitrite Negative Last Edit by ERIS Gomez on 03/14/23 09:00 UA Urobilinogen 0.2 mg/dL Last Edit by ERIS Gomez on 03/14/23 09:0 0 UA Protein 15 mg/dL Last Edit by ERIS Gomez on 03/14/23 09:00 UA pH 6.5 Last Edit by ERIS Gomez on 03/14/23 09:00 UA Blood 0 Navin/uL Last Edit by ERIS Gomez on 03/14/23 09:00 UA Specific Libby 1.010 Last Edit by ERIS Gomez on 03/14/23 09: 00 UA Ketone Negative Last Edit by ERIS Gomez on 03/14/23 09:00 UA Bilirubin 0 mg/dL Last Edit by ERIS Gomez on 03/14/23 09:00 UA Glucose 0 mg/dL Last Edit by ERIS Gomez on 03/14/23 09:00 Results Reviewed Results Reviewed: Laboratory Last Values Urine pH (Auto) 6.5 03/14/23 08:58 Specific Libby (Auto) 1.010 03/14/23 08:58 Urine Protein (Auto) 15 mg/dL 03/14/23 08:58 Glucose (UA)(Auto) 0 mg/dL 03/14/23 08:58 Urine Ketones (Auto) Negative 03/14/23 08:58 Urine Blood (Auto) 0 Navin/uL 03/14/23 08:58 Urine Nitrite (Auto) Negative 03/14/23 08:58 Urine Bilirubin (Auto) 0 mg/dL 03/14/23 08:58 Urine Urobilinogen (Auto) 0.2 mg/dL 03/14/23 08:58 Leukocyte Esterase (Auto) 0 Jer/uL 03/14/23 08:58 Assessment & Plan Assessment & Plan (1) Urothelial carcinoma of bladder: Comment: Recurrent superficial high-grade June 2020 - good response to topical therapy Code(s): C67.9 - Malignant neoplasm of bladder, unspecified Plan Bladder immunotherapy Bladder immuno/chemotherapy was discussed today. These medications are used to create an immune reaction against bladder cancer. The intention is to destroy any tumor cells left on the bladder surface. Since BCG and gemcitabine involved immunostimulation they are not indicated in situations where there is immune weakness. Medications are placed directly into the bladder. It should be held for one to 2 hours. The toilet should be disinfected with a cap full of household bleach prior to urination. Side effects from BCG and gemcitabine generally include mucosa-related changes such as urinary urgency and/or frequency, and hematuria BCG may also invoke an infection type response. An elevated temperature may be indicative of more serious issues and should be reported to the Dr. The intention with bladder immunotherapy is to reduce the frequency of bladder cancer recurrence by 50%. Multiple protocols are available - [facility] plus Cytarabine for alkalinization - 40mg/200mg in 40mg - Sequential Gemcitabine/Docetaxel - 1gm in 50cc NSal 60min/37.5mg in 50cc NSal 60min Will undergo - 3 weeks of plain gemcitabine Orders: Orders AMB Urinalysis Automated Today Z13.9 - Encounter for screening, unspecified AMB Cystoscopy Today Z85.51 - Personal history of malignant neoplasm of bladder Patient Instructions: Imaging studies, laboratory and physical exam results were discussed and reviewed in detail. No major barriers to patient understanding were identified. An opportunity to ask questions regarding the treatment plan was provided. All questions were answered. The patient expressed understanding and agreement with the above treatment plan. The patient is aware they should contact our office by phone for worsening of their current condition or the appearance of new urologic symptoms. Compliance is encouraged with any medications and followup testing that is ordered. It is a privilege to participate in the urologic care of your patient. If you have any questions or concerns regarding treatment for the above conditions, or other urologic issues, please do not hesitate to contact me. The office telephone contact is [phone]. This note is constructed using voice recognition software. While every effort has been made to ensure accuracy blasting machine operator errors may have been included. Yours sincerely, Dr Vince Alvarez MD, [facility] - Urology Providers of Expert, Compassionate Care for the Genitourinary System Coding Level of Care Code Est Pt Level 3 (22975) Diagnoses Urothelial carcinoma of bladder C67.9 CPT Codes Cystoscopy - CPT: 04037-[id number] ([id number])
== END 2023-03-14 13:10 | disposition home or self-care (01) ==
PROVIDERS: PCP Internal Medicine; Visit Provider Urology
DX: C67.9 Malignant neoplasm of bladder, unspecified (principal); Z13.9 Encounter for screening, unspecified
CPT/HCPCS: 52000; 99213

== ENCOUNTER → 2023-03-14 08:45 | Outpatient (BNVA) | payer MEDICARE, BC, SELFPAY | PROVIDERS: PCP Internal Medicine; Visit Provider Urology | DX: C67.9 Malignant neoplasm of bladder, unspecified (principal) | CPT/HCPCS: 52000; 81003; 99212 ==

== ENCOUNTER 2023-03-15 08:36 | Outpatient (REF) | payer MEDICARE, BC, SELFPAY ==
--- NOTE | ~2023-03-15 | US_ITS ---
EXAMINATION: US ABDOMEN COMPLETE CLINICAL INFORMATION: Other specified abnormal findings of blood chemistry. COMPARISON: CT abdomen and pelvis 09/04/2017. Renal ultrasound 08/02/2017. TECHNIQUE: Real-time imaging of the abdominal viscera. FINDINGS: PANCREAS: Normal. ABDOMINAL AORTA: The proximal, mid, and distal segments are normal in caliber. INFERIOR VENA CAVA: Visualized portions are normal. LIVER: Liver is abnormal due to increased echogenicity due to hepatic steatosis. The right lobe of the liver measured 17.5 cm, mildly enlarged. The liver contour is normal. No focal hepatic lesion. There is no intrahepatic biliary duct dilatation seen. GALLBLADDER: Gallbladder abnormal with multiple shadowing stones but no wall thickening. The wall measures 0.2 cm there is wall shadowing echoes seen also. Sonographic Montgomery's sign reported negative. COMMON BILE DUCT: Normal in caliber measuring 0.34 cm in diameter. RIGHT KIDNEY: There are multiple echogenic foci, non-shadowing and not twinkling, most likely vascular. No hydronephrosis. No renal calculi or focal parenchymal lesions. The kidney measures 10.6 cm in maximum dimension. LEFT KIDNEY: There are multiple echogenic not shadowing and not twinkling artifact due to vascular calcifications. There is 0.6 x 0.5 x 0.6 cm simple cyst in the cortex of the interpolar area. No hydronephrosis. No renal calculi or focal parenchymal lesions. The kidney measures 11.3 cm in maximum dimension. SPLEEN: Normal. The spleen measures 10.9 cm in maximum dimension. FREE FLUID: None. US/US abdomen complete IMPRESSION: Hepatic steatosis and mild hepatomegaly. Cholelithiasis without evidence of cholecystitis. Vascular calcifications in both kidneys and small cyst in left kidney.
== END 2023-03-15 08:37 | disposition home or self-care (01) ==
LOC: HO.HMGCX 08:36
PROVIDERS: PCP Internal Medicine; Visit Provider Internal Medicine
DX: R79.89 Other specified abnormal findings of blood chemistry (principal)
CPT/HCPCS: 76700

== ENCOUNTER 2023-06-30 06:53 | Outpatient (REF) | payer MEDICARE, BC, SELFPAY ==
[2023-06-30 07:10] LABS: MANUAL DIFF FLAG NO
[2023-06-30 08:11] LABS: Basophils Absolute Auto 0.1 X10*3/uL (0.0-0.2); Basophils Percent Auto 0.9 % (0-2); Eosinophils Absolute Auto 0.2 X10*3/uL (0.0-0.4); Eosinophils Percent Auto 2.3 % (0-4); Hematocrit 45.9 % (42.0-52.0); Hemoglobin 15.8 g/dl (14.0-18.0); Imm Gran Abs Auto 0.02 X10*3/uL (0.00-0.03); Imm Gran Pct Auto 0.3 % (0.0-0.4); Lymphocytes Absolute Auto 2.9 X10*3/uL (1.2-4.9); Lymphocytes Percent Auto 42.1 % (20-40); Mean Corpuscular HGB Conc 34.4 g/dl (31.0-36.0); Mean Corpuscular Hemoglobin 29.4 pg (27.0-33.0); Mean Corpuscular Volume 85.3 fL (80.0-98.0); Mean Platelet Volume 10.3 fL (9.4-12.4); Monocytes Absolute Auto 0.6 X10*3/uL (0.1-1.2); Monocytes Percent Auto 9.1 % (2-11); Neutrophils Absolute Auto 3.1 x10*3/uL (2.0-8.3); Neutrophils Percent Auto 45.3 % (45-73); Platelet Count 271 X10*3/uL (160-400); Red Blood Count 5.38 X10*6/uL (4.60-5.80); Red Cell Distribution Width 12.8 % (11.0-16.0); White Blood Count 6.9 X10*3/uL (4.8-10.8)
[2023-06-30 08:22] LABS: Estimated Average Glucose 123 mg/dL; Hemoglobin A1c % 5.9 % (<6.0)
[2023-06-30 08:23] LABS: Appearance Urine Clear; Color Urine Yellow; Glucose Urine UA Negative (Negative); Leukocyte Esterase Urine Negative (Negative); Nitrite Urine Negative (Negative); PH 6.5 (5.0-9.0); Specific Gravity - Urine 1.015 (1.005-1.025); Urine Blood Negative (Negative); Urine Ketones Negative (Negative); Urine Protein Trace mg/dL (Neg-Trace)
[2023-06-30 09:03] LABS: Anion Gap 14 (12-20); Blood Urea Nitrogen 13 mg/dL (9-16); Calcium 9.3 mg/dL (8.4-10.2); Carbon Dioxide 31 mmol/L (22-29); Chloride 100 mmol/L (96-108); Estimated Glomerular Filt Rate > 60; Glucose Fasting 117 mg/dL (60-99); Potassium 3.4 mmol/L (3.3-5.1); Sodium 142 mmol/L (135-145)
[2023-06-30 09:04] LABS: Alanine Aminotransferase 92 U/L (0-40); Albumin Level 4.5 g/dL (3.5-5.0); Alkaline Phosphatase 75 U/L (39-117); Aspartate Amino Transferase 55 U/L (5-37); Cholesterol 213 mg/dL (<200); HDL Cholesterol 32 mg/dL (>40); LDL Cholesterol Calculated 120 mg/dL (<100); Total Protein 7.5 g/dL (6.5-8.0); Triglycerides 309 mg/dL (<150)
[2023-06-30 09:13] LABS: Vitamin D 25-OH Total 75.4 ng/mL (>30)
== END 2023-06-30 06:54 | disposition home or self-care (01) ==
LOC: HO.LAB 06:53
PROVIDERS: PCP Internal Medicine; Visit Provider Internal Medicine
DX: R30.0 Dysuria (principal); E55.9 Vitamin D deficiency, unspecified; I10 Essential (primary) hypertension; E78.00 Pure hypercholesterolemia, unspecified; R73.01 Impaired fasting glucose
CPT/HCPCS: 36415; 80053; 80061; 81003; 82306; 83036; 84443; 85025

== ENCOUNTER 2023-07-05 09:34 | Outpatient (AMB) | payer MEDICARE, BC, SELFPAY ==
[2023-07-05 09:38] VITALS: BP 130/86; PULSE 71; O2SAT 98; BMI 31.3
--- NOTE | 2023-07-05 09:38 | MHC.PC.OV ---
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 Accompanied by: Self / Same As Patient Allergies amoxicillin Allergy (Severe, Verified 07/05/23 09:55) hives codeine [CODEINE] Adverse Reaction (Mild, Verified 07/05/23 09:55) NAUSEA oxycodone [From PERCOCET] Adverse Reaction (Mild, Verified 07/05/23 09:55) NAUSEA & VOMITING Medication List - Last Reconciled 07/05/23 by Augusto Holman MD amlodipine 10 mg PO DAILY 90 days calcium carbonate (Calcium) 600 mg PO DAILY diphenhydramine HCl (Allergy (diphenhydramine)) 50 mg PO BEDTIME hydralazine 25 mg PO TID 90 days losartan 100 mg PO DAILY 90 days metoprolol tartrate 25 mg PO BID 90 days multivitamin (Daily Multi-Vitamin tablet) 1 tab PO DAILY omeprazole 20 mg PO DAILY Tobacco use date assessed: 07/05/23 Fall risk assessment: No Falls in past year Last assessed Fall Risk: 07/05/23 Dental Screening Dental Screen Date: 07/05/23 Did you have a dental visit in the last 12 months?: Yes Did you have a dental problem in the last 6 months where you did not have access to dental care?: No Was dental information given to patient?: Patient has dentist HPI [facility] f/u HPI Details Patient comes in today for his follow up visit States that he feels okay He denies any headaches or dizziness Denies any chest pains, no SOB No nausea/vomiting, no abdominal pain No change in bowel habits noted Needs a few of his Rx refilled Had his follow up labs done a few days ago - to discuss his results [facility] Medical History Diplopia Hiatal hernia Hx of bladder cancer Murmur Obesity (BMI 30-39.9) Insomnia Urothelial carcinoma of bladder Vitamin D deficiency GERD (gastroesophageal reflux disease) Impaired fasting glucose Pure hypercholesterolemia Benign essential hypertension Surgical History History of esophagogastroduodenoscopy (EGD) History of biopsy of bladder History of cataract surgery History of bladder surgery History of colonoscopy H/O arthroscopy of knee History of hemorrhoidectomy Family History Father Hypertension Stroke Acute CVA (cerebrovascular accident) Mother Hypertension Diabetes CVD (cardiovascular disease) Brother In good health Social History Housing: House Alcohol intake: current Alcohol intake frequency: a few times a week Alcohol type: beer Patient Tobacco Use Status: Former Tobacco user e-Cigarette/Vaping Use: Never Used Second Hand 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 1. Little interest or pleasure in doing things: not at all 2. Feeling down, depressed, or hopeless: not at all 3. Trouble falling or staying asleep, or sleeping too much: not at all 4. Feeling tired or having little energy: not at all 5. Poor appetite or overeating: not at all 6. Feeling bad about yourself - or that you are a failure or have let yourself or your family down: not at all 7. Trouble concentrating on things, such as reading the newspaper or watching television: not at all 8. Moving or speaking so slowly that other people could have noticed. Or the opposite - being so fidgety or restless that you have been moving around a lot more than usual: not at all 9. Thoughts that you would be better off or of hurting yourself in some way: not at all Total score: 0 Depression Screening Interpretation: Negative Depression Screening Done: Yes 84736 - PHQ-9 Billing: Yes Source: Developed by Drs. Norm Elmore, Ana Shipman, Wojciech Campos and colleagues, with an educational daniel from [employer]. Thrive Questionnaire Date Thrive assessed: 07/05/23 I am a: Patient What is your living situation today?: I have a steady place to live Within the past 12 months, did the food you bought not last and you didn't have the money to get more?: Never true Within the past 12 months, did you worry whether your food would run out before you got money to buy more?: Never true Do you have trouble paying for medicines?: No Do you have trouble getting transportation to medical appointments?: No Do you have trouble paying your heating and electricity bill?: No Do you have trouble taking care of your child, family member or friend?: No Do you have trouble with day-to-day activities such as bathing, preparing meals, shopping, managing finances, etc.?: No Are you currently unemployed and looking for a job?: No Are you interested in more education?: No Please select the resources that you would like help with: None Currently or been in a relationship where the following occur: no concerns reported THRIVE Score: 0 AUDIT C Alcohol Use Questionnaire (AUDIT-C) 1. How often do you have a drink containing alcohol?: 2-4 times a month 2. How many drinks containing alcohol do you have on a typical day when you are drinking?: 1 or 2 3. How often do you have six or more drinks on one occasion?: Never Total Score: 2 Score Reviewed/Action Taken: Yes BRONWYN-7 AMB Questionnaire BRONWYN-7 Date BRONWYN - 7 assessed: 07/05/23 Feeling nervous, anxious, or on edge: 0 = Not at all Not being able to stop or control worryin = Not at all Worrying too much about different things: 0 = Not at all Trouble relaxin = Not at all Being so restless that it is hard to sit still: 0 = Not at all Becoming easily annoyed or irritable: 0 = Not at all Feeling afraid as if something awful might happen: 0 = Not at all Total BRONWYN-7 score (0-4 normal; 5-9 mild; 10-14 moderate; 15-21 severe): 0 Source: Developed by Drs. Norm Elmore, Ana Shipman, Wojciech Campos and colleagues, with an educational daniel from [employer]. BRONWYN-7 Assessment Billing BRONWYN-7 Assessment Tool: BRONWYN-7 Assessment 19600 Review of Systems Const Denies chills, Denies fatigue, Denies fever(s) and Denies headache(s) ENT Denies dysphagia, Denies dizziness, Denies otalgia, Denies headache(s), Denies neck pain, Denies odynophagia and Denies sore throat Card Denies chest pain, Denies palpitations and Denies dyspnea Resp Denies cough and Denies dyspnea GI Denies abdominal pain, Denies constipation, Denies dysphagia, Denies heartburn, Denies diarrhea, Denies nausea, Denies odynophagia and Denies vomiting Denies hematuria, Denies dysuria, Denies nocturia and Denies urinary frequency Musc Denies neck pain Skin/Breast Denies rash Neuro Denies dizziness and Denies headache(s) Endo Denies fatigue and Denies palpitations Physical exam (Primary Care) Vital Signs: Last Vital Signs Pulse 71 07/05/23 09:38 BP 130/86 07/05/23 09:38 Pulse Ox 98 07/05/23 09:38 Oxygen Delivery Method Room Air 07/05/23 09:38 BMI result Body Mass Index 31.3 Tobacco/Smoking Status: Tobacco use Status Tobacco use date assessed 07/05/23 07/05/23 09:42 Patient Tobacco Use Status Former Tobacco user 07/05/23 09:42 e-Cigarette/Vaping Use Never Used 07/05/23 09:42 PHQ-9: PHQ-9 Score PHQ-9: Total score 0 07/05/23 09:42 Depression Screening Interpretation: Negative Thrive Assessment: Date of Thrive Assessment Date Thrive assessed 07/05/23 07/05/23 09:42 Currently or been in a relationship where the following occur: no concerns reported Const General: no acute distress and alert HENMT Ears: TM's normal bilaterally and EAC's normal Throat: Yes posterior oropharynx normal and Yes tonsils normal (no TP congestion noted) Neck Neck: Yes no lymphadenopathy and Yes supple Resp Auscultation: clear to auscultation bilaterally, no rales and no wheezes Cardio Rate: regular rate Rhythm: regular rhythm Heart sounds: no murmurs GI Palpation (GI): Soft to palpation and nontender Auscultation: normal bowel sounds General: Yes no CVA tenderness Back/Spine/Pelvis Back: no CVA tenderness Thoracic/Lumbar Spine: thoracic and lumbar spine normal to inspection Skin Rashes: no rashes Extrem General: Yes no clubbing, cyanosis or edema Results Reviewed Results Reviewed: Laboratory Tests 06/30/23 06/30/23 06/30/23 07:02 07:02 07:05 WBC 6.9 Hgb 15.8 Hct 45.9 Plt Count 271 Sodium 142 Potassium 3.4 Creatinine 0.93 Estimated GFR > 60 Fasting Glucose 117 H Hemoglobin A1c % 5.9 Calcium 9.3 AST 55 H ALT 92 H Triglycerides 309 H Cholesterol 213 H LDL Cholesterol, Calc HDL Cholesterol 32 L 25-OH Vitamin D Total 75.4 TSH 2.00 Urine pH 6.5 Ur Specific Welch 1.015 Urine Protein Trace Urine Glucose (UA) Negative Urine Blood Negative Urine Nitrite Negative Ur Leukocyte Esterase Negative 06/30/23 07:05 WBC Hgb Hct Plt Count Sodium Potassium Creatinine Estimated GFR Fasting Glucose Hemoglobin A1c % Calcium AST ALT Triglycerides Cholesterol LDL Cholesterol, Calc 120 H HDL Cholesterol 25-OH Vitamin D Total TSH Urine pH Ur Specific Welch Urine Protein Urine Glucose (UA) Urine Blood Urine Nitrite Ur Leukocyte Esterase Assessment and Plan Assessment & Plan (1) Pure hypercholesterolemia: Code(s): E78.00 - Pure hypercholesterolemia, unspecified Plan: Results of his labs done a few days ago reviewed and discussed with patient - cautioned that his serum TG is still elevated and has improved only slightly from previous; his LDL cholesterol and total cholesterol numbers are mostly unchanged Reinforced low cholesterol diet Patient prefers to continue with diet modification and avoid statins - had myalgias while on statins in the past He agreed to start on a trial of Fenofibrate, which I have advised him at his last visit are NOT statins Will start him on Fenofibrate 54 mg QD Will recheck his labs and fasting lipids in 4 months for follow up (2) Benign essential hypertension: Code(s): I10 - Essential (primary) hypertension Plan: Reinforced low sodium diet - goal is systolic BP of at least 140 to 150 mm or less Continue Losartan 100 mg QD, Amlodipine 10 mg QD, Metoprolol 25 mg BID and Hydralazine 25 mg TID He is reminded to continue monitoring his blood pressure regularly (3) Impaired fasting glucose: Code(s): R73.01 - Impaired fasting glucose Plan: Reinforced low calorie diet/exercise as tolerated FBS was at 117 mg/dl on his labs done a few days ago; HgbA1c was still at 5.9% (was at 5.9% as well a few months ago) Will continue to monitor his blood sugar and glycemic control regularly (4) GERD (gastroesophageal reflux disease): Code(s): K21.9 - Gastro-esophageal reflux disease without esophagitis Qualifiers: Esophagitis presence: without esophagitis Qualified Code(s): K21.9 - Gastro-esophageal reflux disease without esophagitis Plan: Dietary restrictions reinforced Continue Prilosec OTC 20 mg QD Biopsy of the GE junction done at his last EGD showed (+) mild chronic active inflammation consistent with GERD Follow up with GI as scheduled (5) Elevated LFTs: Code(s): R79.89 - Other specified abnormal findings of blood chemistry Plan: His LFTs are still elevated and are mostly unchanged from previous - are most likely due to hepatosteatosis Will send him for abdominal US for further evaluation (CT done back in 2015 revealed hepatosteatosis) Will continue to monitor his LFTs regularly (6) Vitamin D deficiency: Code(s): E55.9 - Vitamin D deficiency, unspecified Plan: Continue Vitamin D 2000 units QD (7) Urothelial carcinoma of bladder: Comment: Recurrent superficial high-grade June 2020 - good response to topical therapy Code(s): C67.9 - Malignant neoplasm of bladder, unspecified Plan: S/P TURBT on 09/27/[address] Street - pathology showed papillary urothelial carcinoma, high grade with no evidence of invasion into the muscularis propia S/P biopsy and coagulation (x3) of tumors and also S/P BCG Tx (for recurrence of his bladder cancer) - cystoscopy done a couple of years ago reportedly came out okay and repeat procedures in June 2019 and November 2019 also came out negative Repeat biopsy done last year showed (+) recurrence of his bladder cancer and he is S/P surgery/resection by Dr. Alvarez on 07/06/2020 States that he was told at his last visit that everything looked good S/P intravesical immunotherapy with Gemcitabine and states that Dr. Alvarez is considering another round of prophylactic Tx at his next visit next week Follow up with urology as scheduled (8) Insomnia: Code(s): G47.00 - Insomnia, unspecified Qualifiers: Insomnia type: unspecified Qualified Code(s): G47.00 - Insomnia, unspecified Plan: Sleep hygiene reinforced Continue Diphenhydramine 25 mg Q HS PRN (9) Obesity (BMI 30-39.9): Code(s): E66.9 - Obesity, unspecified Plan: Reinforced diet/exercise as tolerated/lose weight Plan Follow up in 4 months Orders: Orders Lipid Panel 4 Months E78.00 - Pure hypercholesterolemia, unspecified TSH reflex Free T4 4 Months E78.00 - Pure hypercholesterolemia, unspecified Vitamin D 25-OH Total 4 Months E55.9 - Vitamin D deficiency, unspecified Complete Blood Count Auto Diff 4 Months D64.9 - Anemia, unspecified Comprehensive [place]. Panel Fast 4 Months E78.00 - Pure hypercholesterolemia, unspecified, R79.89 - Other specified abnormal findings of blood chemistry UA CC w/rflx Micro + Cult 4 Months R30.0 - Dysuria Hemoglobin A1c 4 Months R73.01 - Impaired fasting glucose Medications: New fenofibrate 54 mg PO DAILY 90 tabs 1RF 90 days Refilled losartan 100 mg PO DAILY 90 tabs 3RF 90 days I10 - Essential (primary) hypertension hydralazine 25 mg PO TID 270 tabs 3RF 90 days I10 - Essential (primary) hypertension amlodipine 10 mg PO DAILY 90 tabs 3RF 90 days Coding Level of Care Code Est Pt Level 4 (89174) Diagnoses Pure hypercholesterolemia E78.00 Benign essential hypertension I10 Impaired fasting glucose R73.01 Gastroesophageal reflux disease without esophagitis K21.9 Esophagitis presence: without esophagitis Elevated LFTs R79.89 Vitamin D deficiency E55.9 Urothelial carcinoma of bladder C67.9 Insomnia, unspecified type G47.00 Insomnia type: unspecified Obesity (BMI 30-39.9) E66.9 Additional Codes BRONWYN-7 Assessment Billing - BRONWYN-7 Assessment Tool: BRONWYN-7 Assessment 07172 ([id number])
== END 2023-07-05 10:17 | disposition home or self-care (01) ==
PROVIDERS: PCP Internal Medicine; Visit Provider Internal Medicine
DX: E78.00 Pure hypercholesterolemia, unspecified (principal); C67.9 Malignant neoplasm of bladder, unspecified; E66.9 Obesity, unspecified; Z68.31 Body mass index [BMI] 31.0-31.9, adult; I10 Essential (primary) hypertension; R73.01 Impaired fasting glucose; K21.9 Gastro-esophageal reflux disease without esophagitis; R79.89 Other specified abnormal findings of blood chemistry; E55.9 Vitamin D deficiency, unspecified; G47.00 Insomnia, unspecified
CPT/HCPCS: 99214

== ENCOUNTER 2023-09-12 13:02 | Outpatient (REF) | payer MEDICARE, BC, SELFPAY | END 2023-09-12 13:03 | disposition home or self-care (01) | LOC: HO.LNP 13:02 | PROVIDERS: Visit Provider Urology | DX: C67.9 Malignant neoplasm of bladder, unspecified (principal) | CPT/HCPCS: 52000; 81003; 88121; 99212 ==

== ENCOUNTER 2023-09-12 13:02 | Outpatient (AMB) | payer MEDICARE, BC, SELFPAY ==
--- NOTE | 2023-09-12 13:04 | MHC.OFFVIS ---
Intake Visit Reasons: cysto Intake Note: Patient is Present for Cystoscopy Urology Med: none Antibiotic Allergy: Amoxicillin Blood Thinner: none URO- G Disposable Cystoscope lot:[id number] exp:06/01/2026 Allergies amoxicillin Allergy (Severe, Verified 07/05/23 09:55) hives codeine [CODEINE] Adverse Reaction (Mild, Verified 07/05/23 09:55) NAUSEA oxycodone [From PERCOCET] Adverse Reaction (Mild, Verified 07/05/23 09:55) NAUSEA & VOMITING HPI Comments Details: Linwood is a pleasant male. He is a patient of Dr. Holman. He is seen for the following urologic conditions - superficial bladder cancer - scrotal angiokeratoma Six-month follow-up check cystoscopy NAD Fish pending Six-month follow-up check cystoscopy PSA 10/20 2.6 Bladder cancer June 2020 superficial high-grade bladder cancer - recurrent august 2018, January 2019, July 2020 Prior history of superficial bladder cancer. TURBT August 2018 superficial high-grade, January 2019 superficial high-grade, Jun 2020 superficial high-grade Adjuvant therapy January 2019 induction BCG with boost, - July 2020 induction gemcitabine - November 2020 boost gemcitabine - June 2021 boost gemcitabine - January 2022 Gemcitabine - March 2023 Gemcitabine Cystoscopy - December 2019 NAD - June 2020 small lesion in bladder - Nov 2020 NAD, March 2021 NAD, August 2021 NAD, Mar 2022 patchy areas of redness, 11/20 NAD, 03/23 NAD Cytology - 03/21 Negative, 06/22 Negative, 09/19 rare atypical, 04/21 atypical PFSH Medical History Diplopia Hiatal hernia Hx of bladder cancer Murmur Obesity (BMI 30-39.9) Insomnia Urothelial carcinoma of bladder Vitamin D deficiency GERD (gastroesophageal reflux disease) Impaired fasting glucose Pure hypercholesterolemia Benign essential hypertension Surgical History History of esophagogastroduodenoscopy (EGD) History of biopsy of bladder History of cataract surgery History of bladder surgery History of colonoscopy H/O arthroscopy of knee History of hemorrhoidectomy Family History Father Hypertension Stroke Acute CVA (cerebrovascular accident) Mother Hypertension Diabetes CVD (cardiovascular disease) Brother In good health Social History Housing: House Alcohol intake: current Alcohol intake frequency: a few times a week Alcohol type: beer Patient Tobacco Use Status: Former Tobacco user e-Cigarette/Vaping Use: Never Used Second Hand Smoke Exposure: Yes service: Yes ([employer]) Current occupational status: retired Cognitive needs: No Hearing needs: No Vision needs: Yes Review of Systems Const Denies chills and Denies fever(s) Card Reports no additional complaints and Denies syncope Resp Denies cough GI Denies abdominal pain and Denies heartburn Reports as per HPI and Denies change in libido Neuro Denies syncope Psych Denies change in libido Endo Denies change in libido Physical Exam Const General: cooperative, healthy appearing, comfortable and no acute distress Orientation/consciousness: patient oriented x3 HEENT Face and sinus: Yes normal facial exam Mouth: moist mucous membranes Neck Neck: Yes normal visual inspection, Yes full ROM and Yes trachea midline Chest Chest palpation & inspection: normal inspection of the chest Resp Effort & Inspection: normal respiratory effort, able to speak in complete sentences and no respiratory distress GI Inspection: Yes normal to inspection Back/Spine/Pelvis Cervical Spine: normal cervical lordosis Thoracic/Lumbar Spine: thoracic and lumbar spine normal to inspection Skin General skin exam: no rashes or lesions noted Neuro General: patient oriented x3, gait normal, tone normal and moves all extremities Extrem General: Yes normal to inspection and Yes capillary refill normal Office Procedures Cystoscopy Consent Discussed risk and benefit or proposed procedure with the patient. Information consent for procedure given to the patient. Discussed technical aspects, risks, benefits and alternatives in full. Addressed all of the patient's questions and concerns regarding the procedure. The patient demonstrated knowledge and understanding. They wish to proceed with this procedure. Preparation The patient was prepped in the usual manner. A dumper mold cleaner was present and in the room. Genitalia was prepped with betadine solution in a sterile manner. Lidocaine Jelly 2% was placed into the urethra and 16Fr flexible Olympus cystoscope was inserted into the meatus after adequate lubrication. Procedure Cystoscopy performed using a disposable Urovue digital 16 Latvian cystoscope. Meatus circumcised Urethra entering posterior urethra normal Prostatic Urethra unremarkable Bladder examination with retroflexion of cystoscope Bladder Orifices normal shape and position Bladder Capacity normal Trabeculations grade 1 Cellule Formation yes Diverticulum Formation - Mucosal Erythema - Bladder Tumor scarring [id number] DISPOSABLE SCOPE URO-G FLEXIBLE SCOPE Procedure code (CPT) selection complete Office Meds lidocaine HCl 2 % mucosal jelly in applicator Performing Provider: Vince Alvarez MD [place]forming Location[place] [facility] Administered by: Anil Byers LPN on 09/12/23 13:26 Dose Route Admin Location Dispensed Lot Number Expiration Date [facility] Top Trimmer 10 mL intra-urethral 10 mL nitrofurantoin monohydrate/macrocrystals 100 mg capsule Performing Provider: Vince Alvarez MD [place]forming Location[place] [facility] [place] [facility] Administered by: Anil Byers LPN on 09/12/23 13:26 Dose Route Admin Location Dispensed Lot Number Expiration Date [place] Top Trimmer 100 mg PO 1 cap naproxen 500 mg tablet Performing Provider: Vince Alvarez MD Performing Location: [facility] Administered by: Anil Byers LPN on 09/12/23 13:26 Dose Route Admin Location Dispensed Lot Number Expiration Date ND Top Trimmer 500 mg PO 1 tab Results AMB Urinalysis, Automated UA Leukoctes 0 Jer/uL Last Edit by ERIS Edwards on 09/12/23 13:16 UA Nitrite Negative Last Edit by Alejandra Wynn Chayito on 09/12/23 13:16 UA Urobilinogen 0.2 mg/dL Last Edit by ERIS Edwards on 09/12/23 13:16 UA Protein 15 mg/dL Last Edit by ERIS Edwards on 09/12/23 13:16 UA pH 6.5 Last Edit by ERIS Edwards on 09/12/23 13:16 UA Blood 0 Navin/uL Last Edit by ERIS Edwards on 09/12/23 13:16 UA Specific Luna 1.010 Last Edit by ERIS Edwards on 09/12/23 13:16 UA Ketone Negative Last Edit by ERIS Edwards on 09/12/23 13:16 UA Bilirubin 0 mg/dL Last Edit by ERIS Edwards on 09/12/23 13:16 UA Glucose 0 mg/dL Last Edit by ERIS Edwards on 09/12/23 13:16 Results Reviewed Results Reviewed: Laboratory Last Values Urine pH (Auto) 6.5 09/12/23 13:07 Specific Luna (Auto) 1.010 09/12/23 13:07 Urine Protein (Auto) 15 mg/dL 09/12/23 13:07 Glucose (UA)(Auto) 0 mg/dL 09/12/23 13:07 Urine Ketones (Auto) Negative 09/12/23 13:07 Urine Blood (Auto) 0 Navin/uL 09/12/23 13:07 Urine Nitrite (Auto) Negative 09/12/23 13:07 Urine Bilirubin (Auto) 0 mg/dL 09/12/23 13:07 Urine Urobilinogen (Auto) 0.2 mg/dL 09/12/23 13:07 Leukocyte Esterase (Auto) 0 Jer/uL 09/12/23 13:07 Assessment & Plan Assessment & Plan (1) Urothelial carcinoma of bladder: Comment: Recurrent superficial high-grade June 2020 - good response to topical therapy Code(s): C67.9 - Malignant neoplasm of bladder, unspecified Category: Medical Plan Six-month follow-up cystoscopy Orders: Orders AMB Cystoscopy Today Z85.51 - Personal history of malignant neoplasm of bladder AMB Urinalysis Automated Today Z13.9 - Encounter for screening, unspecified Patient Instructions: Imaging studies, laboratory and physical exam results were discussed and reviewed in detail. No major barriers to patient understanding were identified. An opportunity to ask questions regarding the treatment plan was provided. All questions were answered. The patient expressed understanding and agreement with the above treatment plan. The patient is aware they should contact our office by phone for worsening of their current condition or the appearance of new urologic symptoms. Compliance is encouraged with any medications and followup testing that is ordered. It is a privilege to participate in the urologic care of your patient. If you have any questions or concerns regarding treatment for the above conditions, or other urologic issues, please do not hesitate to contact me. The office telephone contact is [phone]. This note is constructed using voice recognition software. While every effort has been made to ensure accuracy correctional captain errors may have been included. Yours sincerely, Dr Vince Alvarze MD, [facility] - Urology Providers of Expert, Compassionate Care for the Genitourinary System Coding Level of Care Code Est Pt Level 3 (53379) Diagnoses Urothelial carcinoma of bladder C67.9 CPT Codes Cystoscopy - CPT: 80519-[id number] ([id number])
== END 2023-09-12 13:41 | disposition home or self-care (01) ==
PROVIDERS: PCP Internal Medicine; Visit Provider Urology
DX: C67.9 Malignant neoplasm of bladder, unspecified (principal); Z13.9 Encounter for screening, unspecified
CPT/HCPCS: 52000; 99213

== ENCOUNTER 2023-10-30 13:50 | Outpatient (REF) | payer MEDICARE, BC, SELFPAY ==
[2023-10-30 13:58] VITALS: BP 199/90; PULSE 82; RESP 16; TEMP 36.2; O2SAT 97; BMI 28.3
== END 2023-10-30 13:51 | disposition home or self-care (01) ==
LOC: HO.MS 13:50
PROVIDERS: PCP Internal Medicine; Visit Provider Ophthalmology
PROC: (CPT 66821; principal; 2023-10-30 14:00)
DX: H26.491 Other secondary cataract, right eye (principal)
CPT/HCPCS: 66821

== ENCOUNTER 2023-11-09 07:05 | Outpatient (REF) | payer MEDICARE, BC, SELFPAY ==
[2023-11-09 07:32] LABS: MANUAL DIFF FLAG NO
[2023-11-09 08:11] LABS: Basophils Absolute Auto 0.1 X10*3/uL (0.0-0.2); Basophils Percent Auto 0.7 % (0-2); Eosinophils Absolute Auto 0.2 X10*3/uL (0.0-0.4); Eosinophils Percent Auto 3.2 % (0-4); Hematocrit 44.3 % (42.0-52.0); Hemoglobin 15.4 g/dl (14.0-18.0); Imm Gran Abs Auto 0.02 X10*3/uL (0.00-0.03); Imm Gran Pct Auto 0.3 % (0.0-0.4); Lymphocytes Absolute Auto 3.2 X10*3/uL (1.2-4.9); Lymphocytes Percent Auto 43.4 % (20-40); Mean Corpuscular HGB Conc 34.8 g/dl (31.0-36.0); Mean Corpuscular Hemoglobin 29.6 pg (27.0-33.0); Mean Platelet Volume 10.2 fL (9.4-12.4); Monocytes Absolute Auto 0.7 X10*3/uL (0.1-1.2); Monocytes Percent Auto 9.6 % (2-11); Neutrophils Absolute Auto 3.2 x10*3/uL (2.0-8.3); Neutrophils Percent Auto 42.8 % (45-73); Platelet Count 277 X10*3/uL (160-400); Red Blood Count 5.21 X10*6/uL (4.60-5.80); Red Cell Distribution Width 12.8 % (11.0-16.0); White Blood Count 7.5 X10*3/uL (4.8-10.8)
[2023-11-09 08:19] LABS: Estimated Average Glucose 123 mg/dL; Hemoglobin A1c % 5.9 % (<6.0)
[2023-11-09 08:42] LABS: Alanine Aminotransferase 80 U/L (0-40); Albumin Level 4.6 g/dL (3.5-5.0); Alkaline Phosphatase 78 U/L (39-117); Anion Gap 14 (12-20); Aspartate Amino Transferase 46 U/L (5-37); Blood Urea Nitrogen 17 mg/dL (9-16); Calcium 9.5 mg/dL (8.4-10.2); Carbon Dioxide 28 mmol/L (22-29); Chloride 103 mmol/L (96-108); Cholesterol 184 mg/dL (<200); Estimated Glomerular Filt Rate > 60; Glucose Fasting 127 mg/dL (60-99); HDL Cholesterol 33 mg/dL (>40); LDL Cholesterol Calculated 105 mg/dL (<100); Potassium 3.6 mmol/L (3.3-5.1); Sodium 141 mmol/L (135-145); Total Protein 7.6 g/dL (6.5-8.0); Triglycerides 233 mg/dL (<150)
[2023-11-09 09:01] LABS: Vitamin D 25-OH Total 72.8 ng/mL (>30)
[2023-11-09 11:11] LABS: Appearance Urine Clear; Color Urine Yellow; Glucose Urine UA Negative (Negative); Leukocyte Esterase Urine Trace (Negative); Nitrite Urine Negative (Negative); UMIC TRIGGER UACC YES; Urine Blood Negative (Negative); Urine Ketones Negative (Negative); Urine Protein Trace mg/dL (Neg-Trace)
[2023-11-09 11:17] LABS: Bacteria Urine None Seen (None Seen); RBC Urine 0-2 /HPF (0-2); Squamous Epithelial Cell Urine 0-2 /HPF (0-2); WBC Urine 0-5 /HPF (0-5)
== END 2023-11-09 07:06 | disposition home or self-care (01) ==
LOC: HO.LAB 07:05
PROVIDERS: PCP Internal Medicine; Visit Provider Internal Medicine
DX: D64.9 Anemia, unspecified (principal); E78.00 Pure hypercholesterolemia, unspecified; R79.89 Other specified abnormal findings of blood chemistry; E55.9 Vitamin D deficiency, unspecified; R73.01 Impaired fasting glucose
CPT/HCPCS: 36415; 80053; 80061; 81001; 82306; 83036; 84443; 85025

== ENCOUNTER 2023-11-13 09:01 | Outpatient (AMB) | payer MEDICARE, BC, SELFPAY ==
--- NOTE | 2023-11-13 09:05 | MHC.PC.OV ---
Vital Signs 11/13/23 09:07 11/13/23 09:26 Height 5 ft 4 in Weight 183 lb 6 oz BMI 31.5 BP 150/88 H 152/86 H Blood Pressure Location Lt brachial Lt brachial Position Sitting Sitting Pulse 63 Pulse Source Pulse Oximeter Pulse Oximetry (%) 96 Oxygen Delivery Method Room Air Intake Visit Reasons: hyperlipidemia, HTN, IFG, elevated LFTs Intake Note: Patient is here to follow up on HLD, HTN, IFG, Elevated LFTs. 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: Not Required per policy Accompanied by: Self / Same As Patient Allergies amoxicillin Allergy (Severe, Verified 11/13/23 09:15) hives codeine [CODEINE] Adverse Reaction (Mild, Verified 11/13/23 09:15) NAUSEA oxycodone [From PERCOCET] Adverse Reaction (Mild, Verified 11/13/23 09:15) NAUSEA & VOMITING Medication List - Last Reconciled 11/13/23 by Augusto Holman MD amlodipine 10 mg PO DAILY 90 days calcium carbonate (Calcium 600) 600 mg PO DAILY diphenhydramine HCl (Allergy (diphenhydramine)) 50 mg PO BEDTIME fenofibrate 54 mg PO DAILY 90 days hydralazine 25 mg PO TID 90 days losartan 100 mg PO DAILY 90 days metoprolol tartrate 25 mg PO BID 90 days multivitamin (Daily Multi-Vitamin tablet) 1 tab PO DAILY omeprazole 20 mg PO DAILY Tobacco use date assessed: 11/13/23 Fall risk assessment: No Falls in past year Last assessed Fall Risk: 11/13/23 Dental Screening Dental Screen Date: 07/05/23 HPI hyperlipidemia, HTN, IFG, elevated LFTs HPI Details Patient comes in today for his follow up visit States that he feels okay He denies any headaches or dizziness Denies any chest pains, no SOB No nausea/vomiting, no abdominal pain No change in bowel habits noted He had his follow up labs done a few days ago - to discuss his results [facility] Medical History Diplopia Hiatal hernia Hx of bladder cancer Murmur Obesity (BMI 30-39.9) Insomnia Urothelial carcinoma of bladder Vitamin D deficiency GERD (gastroesophageal reflux disease) Impaired fasting glucose Pure hypercholesterolemia Benign essential hypertension Surgical History History of esophagogastroduodenoscopy (EGD) History of biopsy of bladder History of cataract surgery History of bladder surgery History of colonoscopy H/O arthroscopy of knee History of hemorrhoidectomy Family History Father Hypertension Stroke Acute CVA (cerebrovascular accident) Mother Hypertension Diabetes CVD (cardiovascular disease) Brother In good health Social History Housing: House Alcohol intake: current Alcohol intake frequency: a few times a week Alcohol type: beer Patient Tobacco Use Status: Former Tobacco user e-Cigarette/Vaping Use: Never Used Second Hand Smoke Exposure: Yes 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 Norm Elmore, Ana Shipman, Wojciehc Campos and colleagues, with an educational daniel from [employer]. Review of Systems Const Denies chills, Denies fatigue, Denies fever(s) and Denies headache(s) ENT Denies dysphagia, Denies dizziness, Denies otalgia, Denies headache(s), Denies neck pain, Denies odynophagia and Denies sore throat Card Denies chest pain, Denies palpitations and Denies dyspnea Resp Denies cough and Denies dyspnea GI Denies abdominal pain, Denies constipation, Denies dysphagia, Denies heartburn, Denies diarrhea, Denies nausea, Denies odynophagia and Denies vomiting Denies hematuria, Denies dysuria, Denies nocturia and Denies urinary frequency Musc Denies neck pain Skin/Breast Denies rash Neuro Denies dizziness and Denies headache(s) Endo Denies fatigue and Denies palpitations Physical exam (Primary Care) Vital Signs: Last Vital Signs Pulse 63 11/13/23 09:07 BP 150/88 H 11/13/23 09:07 Pulse Ox 96 11/13/23 09:07 Oxygen Delivery Method Room Air 11/13/23 09:07 BMI result Body Mass Index 31.5 Tobacco/Smoking Status: Tobacco use Status Tobacco use date assessed 11/13/23 11/13/23 09:12 Patient Tobacco Use Status Former Tobacco user 11/13/23 09:12 e-Cigarette/Vaping Use Never Used 11/13/23 09:12 Thrive Assessment: Date of Thrive Assessment Date Thrive assessed 07/05/23 11/13/23 09:12 Const General: no acute distress and alert HENMT Ears: TM's normal bilaterally and EAC's normal Throat: Yes posterior oropharynx normal and Yes tonsils normal (no TP congestion noted) Neck Neck: Yes no lymphadenopathy and Yes supple Thyroid: Thyroid normal Resp Auscultation: clear to auscultation bilaterally, no rales and no wheezes Cardio Rate: regular rate Rhythm: regular rhythm Heart sounds: no murmurs GI Palpation (GI): Soft to palpation and nontender Auscultation: normal bowel sounds General: Yes no CVA tenderness Back/Spine/Pelvis Back: no CVA tenderness Thoracic/Lumbar Spine: thoracic and lumbar spine normal to inspection Skin Rashes: no rashes Extrem General: Yes no clubbing, cyanosis or edema Results Reviewed Results Reviewed: Laboratory Tests 11/09/23 11/09/23 07:31 09:50 WBC 7.5 Hgb 15.4 Hct 44.3 Plt Count 277 Sodium 141 Potassium 3.6 Creatinine 0.98 Estimated GFR > 60 Fasting Glucose 127 H Hemoglobin A1c % 5.9 Calcium 9.5 AST 46 H ALT 80 H Triglycerides 233 H Cholesterol 184 LDL Cholesterol, Calc 105 H HDL Cholesterol 33 L 25-OH Vitamin D Total 72.8 TSH 2.20 Ur Specific [place] 1.010 Urine Protein Trace Urine Glucose (UA) Negative Urine Blood Negative Urine Nitrite Negative Ur Leukocyte Esterase Trace H Assessment and Plan Assessment & Plan (1) Pure hypercholesterolemia: Code(s): E78.00 - Pure hypercholesterolemia, unspecified Plan: Results of his labs done a few days ago reviewed and discussed with patient - cautioned that his serum TG is still elevated but it has improved from previous; his LDL cholesterol and total cholesterol numbers have also improved slightly from previous Reinforced low cholesterol diet Patient prefers to continue with diet modification and avoid statins - had myalgias while on statins in the past Continue Fenofibrate 54 mg QD Will recheck his labs and fasting lipids in 4 months for follow up (2) Benign essential hypertension: Code(s): I10 - Essential (primary) hypertension Plan: Reinforced low sodium diet - goal is systolic BP of at least 140 to 150 mm or less Continue Losartan 100 mg QD, Amlodipine 10 mg QD and Metoprolol 25 mg BID; will increase his Hydralazine to 50 mg AM dose and continue at 25 mg in PM and 25 mg in the evening He is reminded to continue monitoring his blood pressure regularly (3) Impaired fasting glucose: Code(s): R73.01 - Impaired fasting glucose Plan: Reinforced low calorie diet/exercise as tolerated FBS was at 117 mg/dl on his labs done a few days ago; HgbA1c was still at 5.9% (was at 5.9% as well a few months ago) Will continue to monitor his blood sugar and glycemic control regularly (4) GERD (gastroesophageal reflux disease): Code(s): K21.9 - Gastro-esophageal reflux disease without esophagitis Qualifiers: Esophagitis presence: without esophagitis Qualified Code(s): K21.9 - Gastro-esophageal reflux disease without esophagitis Plan: Dietary restrictions reinforced Continue Prilosec OTC 20 mg QD Biopsy of the GE junction done at his last EGD showed (+) mild chronic active inflammation consistent with GERD Follow up with GI as scheduled (5) Elevated LFTs: Code(s): R79.89 - Other specified abnormal findings of blood chemistry Plan: His LFTs are still elevated and are mostly unchanged from previous - are most likely due to hepatosteatosis Will send him for abdominal US for further evaluation (CT done back in 2015 revealed hepatosteatosis) Will continue to monitor his LFTs regularly (6) Vitamin D deficiency: Code(s): E55.9 - Vitamin D deficiency, unspecified Plan: Continue Vitamin D 2000 units QD (7) Urothelial carcinoma of bladder: Comment: Recurrent superficial high-grade June 2020 - good response to topical therapy Code(s): C67.9 - Malignant neoplasm of bladder, unspecified Plan: S/P TURBT on 09/27/[address] - pathology showed papillary urothelial carcinoma, high grade with no evidence of invasion into the muscularis propia S/P biopsy and coagulation (x3) of tumors and also S/P BCG Tx (for recurrence of his bladder cancer) - cystoscopy done a couple of years ago reportedly came out okay and repeat procedures in June 2019 and November 2019 also came out negative Repeat biopsy done last year showed (+) recurrence of his bladder cancer and he is S/P surgery/resection by Dr. Alvarez on 07/06/2020 States that he was told at his last visit that everything looked good S/P intravesical immunotherapy with Gemcitabine Follow up with urology as scheduled (8) Insomnia: Code(s): G47.00 - Insomnia, unspecified Qualifiers: Insomnia type: unspecified Qualified Code(s): G47.00 - Insomnia, unspecified Plan: Sleep hygiene reinforced Continue Diphenhydramine 25 mg Q HS PRN (9) Obesity (BMI 30-39.9): Code(s): E66.9 - Obesity, unspecified Plan: Reinforced diet/exercise as tolerated/lose weight Plan Follow up in 4 months Orders: Orders Comprehensive [place]. Panel Fast 4 Months E78.00 - Pure hypercholesterolemia, unspecified Lipid Panel 4 Months E78.00 - Pure hypercholesterolemia, unspecified Hemoglobin A1c 4 Months R73.01 - Impaired fasting glucose Complete Blood Count Auto Diff 4 Months D64.9 - Anemia, unspecified TSH reflex Free T4 4 Months E78.00 - Pure hypercholesterolemia, unspecified UA CC w/rflx Micro + Cult 4 Months R30.0 - Dysuria Vitamin D 25-OH Total 4 Months E55.9 - Vitamin D deficiency, unspecified Medications: Changed From hydralazine Take 2 tablets (50 mg) in AM and continue at 25 mg in the afternoon and evening (total of 4 tablets a day) 25 mg PO TID 90 days 360 tabs 3RF I10 - Essential (primary) hypertension To hydralazine Take 2 tablets (50 mg) in AM and continue at 25 mg in the afternoon and evening (total of 4 tablets a day) 90 days 360 tabs 3RF I10 - Essential (primary) hypertension Coding Level of Care Code Est Pt Level 4 (49058) Complex EM visit Add On G2211 Diagnoses Pure hypercholesterolemia E78.00 Benign essential hypertension I10 Impaired fasting glucose R73.01 Gastroesophageal reflux disease without esophagitis K21.9 Esophagitis presence: without esophagitis Elevated LFTs R79.89 Vitamin D deficiency E55.9 Urothelial carcinoma of bladder C67.9 Insomnia, unspecified type G47.00 Insomnia type: unspecified Obesity (BMI 30-39.9) E66.9
[2023-11-13 09:07] VITALS: BP 150/88; PULSE 63; O2SAT 96; BMI 31.5
[2023-11-13 09:26] VITALS: BP 152/86
== END 2023-11-13 09:42 | disposition home or self-care (01) ==
PROVIDERS: PCP Internal Medicine; Visit Provider Internal Medicine
DX: E78.00 Pure hypercholesterolemia, unspecified (principal); I10 Essential (primary) hypertension; C67.9 Malignant neoplasm of bladder, unspecified; R73.01 Impaired fasting glucose; K21.9 Gastro-esophageal reflux disease without esophagitis; R79.89 Other specified abnormal findings of blood chemistry; E55.9 Vitamin D deficiency, unspecified; G47.00 Insomnia, unspecified; E66.9 Obesity, unspecified
CPT/HCPCS: 99214; G2211

== ENCOUNTER 2024-03-05 09:43 | Outpatient (REF) | payer MEDICARE, BC, SELFPAY ==
[2024-03-05 16:50] LABS: Urine Cytology See Pathology rpt
== END 2024-03-05 09:44 | disposition home or self-care (01) ==
LOC: HO.LAB 09:43
PROVIDERS: PCP Internal Medicine; Visit Provider Urology
DX: Z85.51 Personal history of malignant neoplasm of bladder (principal)
CPT/HCPCS: 52000; 81003; 88112

== ENCOUNTER 2024-03-05 09:43 | Outpatient (AMB) | payer MEDICARE, BC, SELFPAY ==
--- NOTE | 2024-03-05 10:08 | A.OFFVIS_ITS ---
Intake Visit Reasons: 6M Cysto(Bladder Ca) Intake Note: Patient is Present for Cystoscopy Urology Med: None Antibiotic Allergy: Amoxicillin Blood Thinner: None Last FISH Cytology 09/12/23- NEGATIVE RESULT FOR THE UROVYSION FISH ASSAY Uro G HD Disposable Cystoscope LOT:[id number] EXP: 06/01/2026 Briefcase Sewer Required: No Accompanied by: Self / Same As Patient Allergies amoxicillin Allergy (Severe, Verified 03/05/24 10:11) hives codeine [CODEINE] Adverse Reaction (Mild, Verified 03/05/24 10:11) NAUSEA oxycodone [From PERCOCET] Adverse Reaction (Mild, Verified 03/05/24 10:11) NAUSEA & VOMITING HPI Comments Details: Linwood is a pleasant male. He is a patient of Dr. Holman. He is seen for the following urologic conditions - superficial bladder cancer - scrotal angiokeratoma Six-month follow-up check cystoscopy NAD PSA 10/20 2.6 Bladder cancer June 2020 superficial high-grade bladder cancer - recurrent August 2018, January 2019, July 2020 Prior history of superficial bladder cancer. TURBT August 2018 superficial high-grade, January 2019 superficial high-grade, Jun 2020 superficial high-grade Adjuvant therapy January 2019 induction BCG with boost, - July 2020 induction gemcitabine - November 2020 boost gemcitabine - June 2021 boost gemcitabine - January 2022 Gemcitabine - March 2023 Gemcitabine Cystoscopy - December 2019 NAD - June 2020 small lesion in bladder - Nov 2020 NAD, March 2021 NAD, August 2021 NAD, Mar 2022 patchy areas of redness, 11/20 NAD, 03/23 NAD, 10/22 NAD, 03/14 NAD Cytology - 03/21 Negative, 06/22 Negative, 09/19 rare atypical, 04/21 atypical, 09/21 FISH NAD PFSH Medical History Diplopia Hiatal hernia Hx of bladder cancer Murmur Obesity (BMI 30-39.9) Insomnia Urothelial carcinoma of bladder Vitamin D deficiency GERD (gastroesophageal reflux disease) Impaired fasting glucose Pure hypercholesterolemia Benign essential hypertension Surgical History History of esophagogastroduodenoscopy (EGD) History of biopsy of bladder History of cataract surgery History of bladder surgery History of colonoscopy H/O arthroscopy of knee History of hemorrhoidectomy Family History Father Hypertension Stroke Acute CVA (cerebrovascular accident) Mother Hypertension Diabetes CVD (cardiovascular disease) Brother In good health Social History Housing: House Alcohol intake: current Alcohol intake frequency: a few times a week Alcohol type: beer Patient Tobacco Use Status: Former Tobacco user e-Cigarette/Vaping Use: Never Used Second Hand Smoke Exposure: Yes service: Yes ([employer]) Current occupational status: retired Cognitive needs: No Hearing needs: No Vision needs: Yes Review of Systems Const Denies chills and Denies fever(s) Card Reports no additional complaints and Denies syncope Resp Denies cough GI Denies abdominal pain and Denies heartburn Reports as per HPI and Denies change in libido Neuro Denies syncope Psych Denies change in libido Endo Denies change in libido Physical Exam Const General: cooperative, healthy appearing, comfortable and no acute distress Orientation/consciousness: patient oriented x3 HEENT Face and sinus: Yes normal facial exam Mouth: moist mucous membranes Neck Neck: Yes normal visual inspection, Yes full ROM and Yes trachea midline Chest Chest palpation & inspection: normal inspection of the chest Resp Effort & Inspection: normal respiratory effort, able to speak in complete sentences and no respiratory distress GI Inspection: Yes normal to inspection Back/Spine/Pelvis Cervical Spine: normal cervical lordosis Thoracic/Lumbar Spine: thoracic and lumbar spine normal to inspection Skin General skin exam: no rashes or lesions noted Neuro General: patient oriented x3, gait normal, tone normal and moves all extremities Extrem General: Yes normal to inspection and Yes capillary refill normal Office Procedures Cystoscopy Consent Discussed risk and benefit or proposed procedure with the patient. Information consent for procedure given to the patient. Discussed technical aspects, risks, benefits and alternatives in full. Addressed all of the patient's questions and concerns regarding the procedure. The patient demonstrated knowledge and u nderstanding. They wish to proceed with this procedure. Preparation The patient was prepped in the usual manner. A gutter installer was present and in the room. Genitalia was prepped with betadine solution in a sterile manner. Lidocaine Jelly 2% was placed into the urethra and 16Fr flexible Olympus cystoscope was inserted into the meatus after adequate lubrication. Procedure Cystoscopy performed using a disposable Urovue digital 16 Turkish cystoscope. Meatus circumcised Urethra anterior and posterior urethra normal Prostatic Urethra unremarkable Bladder examination with retroflexion of cystoscope Bladder Orifices normal shape and position Bladder Capacity median Trabeculations grade 1/2 Cellule Formation - Diverticulum Formation - Mucosal Erythema small areas of submucosal vessels Bladder Tumor scarring [id number] DISPOSABLE SCOPE URO-G FLEXIBLE SCOPE Procedure code (CPT) selection complete Office Meds lidocaine HCl 2 % mucosal jelly in applicator Performing Provider: Vince Alvarez MD Performing Location: [facility] Administered by: Anil Byers LPN on 03/05/24 10:30 Dose Route Admin Location Dispensed Lot Number Expiration Date NDC Oil Well Pumper 10 mL intra-urethral 10 mL nitrofurantoin monohydrate/macrocrystals 100 mg capsule Performing Provider: Vince Alvarez MD Performing Location: [facility] Administered by: Anil Byers LPN on 03/05/24 10:30 Dose Route Admin Location Dispensed Lot Number Expiration Date NDC Oil Well Pumper 100 mg PO 1 cap naproxen 500 mg tablet Performing Provider: Vince Alvarez MD Performing Location: [facility] Administered by: Anil Byers LPN on 03/05/24 10:30 Dose Route Admin Location Dispensed Lot Number Expiration Date NDC Oil Well Pumper 500 mg PO 1 tab Results AMB Urinalysis, Automated UA Leukoctes 0 Jer/uL Last Edit by ERIS Edwards on 03/05/24 10:28 UA Nitrite Negative Last Edit by ERIS Edwards on 03/05/24 10:28 UA Urobilinogen 0.2 mg/dL Last Edit by ERIS Edwards on 03/05/24 10:2 8 UA Protein 0 mg/dL Last Edit by ERIS Edwards on 03/05/24 10:28 UA pH 6.5 Last Edit by ERIS Edwards on 03/05/24 10:28 UA Blood 0 Navin/uL Last Edit by ERIS Edwards on 03/05/24 10:28 UA Specific [place] 1.000 Last Edit by ERIS Edwards on 03/05/24 10: 28 UA Ketone Negative Last Edit by Alejandra Wynn, RMA on 03/05/24 10:28 UA Bilirubin 0 mg/dL Last Edit by Alejandra Wynn, RMA on 03/05/24 10:28 UA Glucose 0 mg/dL Last Edit by Alejandra Wynn, RMA on 03/05/24 10:28 Results Reviewed Results Reviewed: Laboratory Last Values Urine pH (Auto) 6.5 03/05/24 10:16 Specific [place] (Auto) 1.000 03/05/24 10:16 Urine Protein (Auto) 0 mg/dL 03/05/24 10:16 Glucose (UA)(Auto) 0 mg/dL 03/05/24 10:16 Urine Ketones (Auto) Negative 03/05/24 10:16 Urine Blood (Auto) 0 Navin/uL 03/05/24 10:16 Urine Nitrite (Auto) Negative 03/05/24 10:16 Urine Bilirubin (Auto) 0 mg/dL 03/05/24 10:16 Urine Urobilinogen (Auto) 0.2 mg/dL 03/05/24 10:16 Leukocyte Esterase (Auto) 0 Jer/uL 03/05/24 10:16 Assessment & Plan Assessment & Plan (1) Urothelial carcinoma of bladder: Comment: Recurrent superficial high-grade June 2020 - good response to topical therapy Code(s): C67.9 - Malignant neoplasm of bladder, unspecified Category: Medical Plan Six-month follow-up Orders: Orders AMB Urinalysis Automated Today Z13.9 - Encounter for screening, unspecified Urine Cytology Today Z85.51 - Personal history of malignant neoplasm of bladder AMB Cystoscopy Today Z85.51 - Personal history of malignant neoplasm of bladder Patient Instructions: Imaging studies, laboratory and physical exam results were discussed and reviewed in detail. No major barriers to patient understanding were identified. An opportunity to ask questions regarding the treatment plan was provided. All questions were answered. The patient expressed understanding and agreement with the above treatment plan. The patient is aware they should contact our office by phone for worsening of their current condition or the appearance of new urologic symptoms. Compliance is encouraged with any medications and followup testing that is ordered. It is a privilege to participate in the urologic care of your patient. If you have any questions or concerns regarding treatment for the above conditions, or other urologic issues, please do not hesitate to contact me. The office telephone contact is [phone]. This note is constructed using voice recognition software. While every effort has been made to ensure accuracy chemical processing laborer errors may have been included. Yours sincerely, Dr Vince Alvarez MD, [facility] - Urology Providers of Expert, Compassionate Care for the Genitourinary System Coding Level of Care Code Procedure Only Diagnoses Urothelial carcinoma of bladder C67.9 CPT Codes Cystoscopy - CPT: 93173-[id number] ([id number])
== END 2024-03-05 10:52 | disposition home or self-care (01) ==
LOC: HO.HUSH 09:44
PROVIDERS: PCP Internal Medicine; Visit Provider Urology
DX: Z85.51 Personal history of malignant neoplasm of bladder (principal); Z13.9 Encounter for screening, unspecified
CPT/HCPCS: 52000

== ENCOUNTER 2024-03-13 06:47 | Outpatient (REF) | payer MEDICARE, BC, SELFPAY ==
[2024-03-13 07:04] LABS: MANUAL DIFF FLAG NO
[2024-03-13 07:27] LABS: Basophils Absolute Auto 0.1 X10*3/uL (0.0-0.2); Basophils Percent Auto 1.1 % (0-2); Eosinophils Absolute Auto 0.2 X10*3/uL (0.0-0.4); Eosinophils Percent Auto 2.4 % (0-4); Hematocrit 43.1 % (42.0-52.0); Imm Gran Abs Auto 0.01 X10*3/uL (0.00-0.03); Imm Gran Pct Auto 0.2 % (0.0-0.4); Lymphocytes Absolute Auto 2.5 X10*3/uL (1.2-4.9); Lymphocytes Percent Auto 39.9 % (20-40); Mean Corpuscular HGB Conc 34.8 g/dl (31.0-36.0); Mean Corpuscular Hemoglobin 29.6 pg (27.0-33.0); Mean Corpuscular Volume 85.2 fL (80.0-98.0); Mean Platelet Volume 10.3 fL (9.4-12.4); Monocytes Absolute Auto 0.6 X10*3/uL (0.1-1.2); Neutrophils Percent Auto 47.4 % (45-73); Platelet Count 247 X10*3/uL (160-400); Red Blood Count 5.06 X10*6/uL (4.60-5.80); Red Cell Distribution Width 12.8 % (11.0-16.0); White Blood Count 6.2 X10*3/uL (4.8-10.8)
[2024-03-13 07:40] LABS: Estimated Average Glucose 105 mg/dL; Hemoglobin A1C 128.0338 umol/L; Hemoglobin A1c % 5.3 % (<6.0); Total Hemoglobin (HGBA1C) 3720.7095 umol/L
[2024-03-13 07:45] LABS: Alanine Aminotransferase 81 U/L (0-40); Albumin Level 4.4 g/dL (3.5-5.0); Alkaline Phosphatase 71 U/L (39-117); Anion Gap 14 (12-20); Aspartate Amino Transferase 48 U/L (5-37); Bilirubin Total 1.2 mg/dL (0.0-1.0); Blood Urea Nitrogen 10 mg/dL (9-16); Calcium 9.5 mg/dL (8.4-10.2); Carbon Dioxide 26 mmol/L (22-29); Chloride 103 mmol/L (96-108); Cholesterol 170 mg/dL (<200); Estimated Glomerular Filt Rate > 60; Glucose Fasting 98 mg/dL (60-99); HDL Cholesterol 31 mg/dL (>40); LDL Cholesterol Calculated 99 mg/dL (<100); Potassium 3.8 mmol/L (3.3-5.1); Sodium 139 mmol/L (135-145); Total Protein 7.3 g/dL (6.5-8.0); Triglycerides 201 mg/dL (<150)
[2024-03-13 07:55] LABS: Appearance Urine Clear; Color Urine Yellow; Glucose Urine UA Negative (Negative); Leukocyte Esterase Urine Negative (Negative); Nitrite Urine Negative (Negative); Specific Gravity - Urine <= 1.005 (1.005-1.025); Urine Blood Negative (Negative); Urine Ketones Negative (Negative); Urine Protein Negative (Neg-Trace)
[2024-03-13 08:06] LABS: TSH reflex Free T4 2.09 uIU/mL (0.32-4.0)
== END 2024-03-13 06:48 | disposition home or self-care (01) ==
LOC: HO.LAB 06:47
PROVIDERS: PCP Internal Medicine; Visit Provider Internal Medicine
DX: D64.9 Anemia, unspecified (principal); R30.0 Dysuria; R73.01 Impaired fasting glucose; E55.9 Vitamin D deficiency, unspecified; E78.00 Pure hypercholesterolemia, unspecified
CPT/HCPCS: 36415; 80053; 80061; 81003; 82306; 83036; 84443; 85025

== ENCOUNTER 2024-03-21 09:20 | Outpatient (AMB) | payer MEDICARE, BC, SELFPAY ==
--- NOTE | 2024-03-21 09:21 | MHC.PC.OV ---
Vital Signs 03/21/24 09:27 Height 5 ft 4 in Weight 184 lb BMI 31.6 BP 124/80 Blood Pressure Location Lt brachial Position Sitting Pulse 66 Pulse Source Pulse Oximeter Pulse Oximetry (%) 99 Oxygen Delivery Method Room Air Intake Visit Reasons: hyperlipidemia, HTN, IFG, elevated LFTs Technical Account Representative Required: No Accompanied by: Self / Same As Patient Allergies amoxicillin Allergy (Severe, Verified 03/21/24 09:51) hives fenofibrate Adverse Reaction (Intermediate, Verified 03/21/24 10:04) myalgia, sneezing (?) codeine [CODEINE] Adverse Reaction (Mild, Verified 03/21/24 09:51) NAUSEA oxycodone [From PERCOCET] Adverse Reaction (Mild, Verified 03/21/24 09:51) NAUSEA & VOMITING Medication List - Last Reconciled 03/21/24 by Augusto Holman MD amlodipine 10 mg PO DAILY 90 days calcium carbonate (Calcium 600) 600 mg PO DAILY diphenhydramine HCl (Allergy (diphenhydramine)) 50 mg PO BEDTIME hydralazine Take 2 tablets (50 mg) in AM and continue at 25 mg in the afternoon and evening (total of 4 tablets a day) 90 days losartan 100 mg PO DAILY 90 days metoprolol tartrate 25 mg PO BID 90 days multivitamin (Daily Multi-Vitamin tablet) 1 tab PO DAILY omeprazole 20 mg PO DAILY Tobacco use date assessed: 03/21/24 Fall risk assessment: No Falls in past year Last assessed Fall Risk: 03/21/24 Dental Screening Dental Screen Date: 03/21/24 Did you have a dental visit in the last 12 months?: Yes Did you have a dental problem in the last 6 months where you did not have access to dental care?: No Was dental information given to patient?: Patient has dentist HPI hyperlipidemia, HTN, IFG, elevated LFTs HPI Details Patient comes in today for his follow up visit States that he feels okay Relates that all of his previous muscle pains went away after he stopped taking his Fenofibrate States that he is continuing to work on getting his cholesterol levels improved without medications for now He has been able to lose a lot of weight over the summer and fall and is happy about this He denies any headaches or dizziness Denies any chest pains, no SOB No nausea/vomiting, no abdominal pain No change in bowel habits noted States that he was also recently cleared by urology of his bladder cancer but he remains on 6 months' surveillance appointments with urology at this time He had his follow up labs done last week - to discuss his results [facility] Medical History Diplopia Hiatal hernia Hx of bladder cancer Murmur Obesity (BMI 30-39.9) Insomnia Urothelial carcinoma of bladder Vitamin D deficiency GERD (gastroesophageal reflux disease) Impaired fasting glucose Pure hypercholesterolemia Benign essential hypertension Surgical History History of esophagogastroduodenoscopy (EGD) History of biopsy of bladder History of cataract surgery History of bladder surgery History of colonoscopy H/O arthroscopy of knee History of hemorrhoidectomy Family History Father Hypertension Stroke Acute CVA (cerebrovascular accident) Mother Hypertension Diabetes CVD (cardiovascular disease) Brother In good health Social History Housing: House Alcohol intake: current Alcohol intake frequency: a few times a week Alcohol type: beer Patient Tobacco Use Status: Former Tobacco user e-Cigarette/Vaping Use: Never Used Second Hand Smoke Exposure: Yes service: Yes ([employer]) Current occupational status: retired Cognitive needs: No Hearing needs: No Vision needs: Yes Questionnaire PHQ-9 Over the last 2 weeks, how often have you been bothered by any of the following problems? 1. Little interest or pleasure in doing things: not at all 2. Feeling down, depressed, or hopeless: not at all 3. Trouble falling or staying asleep, or sleeping too much: not at all 4. Feeling tired or having little energy: not at all 5. Poor appetite or overeating: not at all 6. Feeling bad about yourself - or that you are a failure or have let yourself or your family down: not at all 7. Trouble concentrating on things, such as reading the newspaper or watching television: not at all 8. Moving or speaking so slowly that other people could have noticed. Or the opposite - being so fidgety or restless that you have been moving around a lot more than usual: not at all 9. Thoughts that you would be better off or of hurting yourself in some way: not at all Total score: 0 Depression Screening Interpretation: Negative Depression Screening Done: Yes 39325 - PHQ-9 Billing: Yes Source: Developed by Drs. Norm Elmore, Ana Shipman, Wojciech Campos and colleagues, with an educational daniel from [employer]. Thrive Questionnaire Date Thrive assessed: 03/21/24 I am a: Patient What is your living situation today?: I have a steady place to live Within the past 12 months, did the food you bought not last and you didn't have the money to get more?: Never true Within the past 12 months, did you worry whether your food would run out before you got money to buy more?: Never true Do you have trouble paying for medicines?: No Do you have trouble getting transportation to medical appointments?: No Do you have trouble paying your heating and electricity bill?: No Do you have trouble taking care of your child, family member or friend?: No Do you have trouble with day-to-day activities such as bathing, preparing meals, shopping, managing finances, etc.?: No Are you currently unemployed and looking for a job?: No Are you interested in more education?: No Please select the resources that you would like help with: None Currently or been in a relationship where the following occur: No concerns reported THRIVE Score: 0 AUDIT C Alcohol Use Questionnaire (AUDIT-C) 1. How often do you have a drink containing alcohol?: 2-4 times a month 2. How many drinks containing alcohol do you have on a typical day when you are drinking?: 1 or 2 3. How often do you have six or more drinks on one occasion?: Never Total Score: 2 Score Reviewed/Action Taken: Yes BRONWYN-7 AMB Questionnaire BRONWYN-7 Date BRONWYN - 7 assessed: 03/21/24 Feeling nervous, anxious, or on edge: 0 = Not at all Not being able to stop or control worryin = Not at all Worrying too much about different things: 0 = Not at all Trouble relaxin = Not at all Being so restless that it is hard to sit still: 0 = Not at all Becoming easily annoyed or irritable: 0 = Not at all Feeling afraid as if something awful might happen: 0 = Not at all Total BRONWYN-7 score (0-4 normal; 5-9 mild; 10-14 moderate; 15-21 severe): 0 Source: Developed by Drs. Norm Elmore, Ana Shipman, Wojciech Campos and colleagues, with an educational daniel from [employer]. Review of Systems Const Denies chills, Denies fatigue, Denies fever(s) and Denies headache(s) ENT Denies dysphagia, Denies dizziness, Denies otalgia, Denies headache(s), Denies neck pain, Denies odynophagia and Denies sore throat Card Denies chest pain, Denies palpitations and Denies dyspnea Resp Denies cough and Denies dyspnea GI Denies abdominal pain, Denies constipation, Denies dysphagia, Denies heartburn, Denies diarrhea, Denies nausea, Denies odynophagia and Denies vomiting Denies hematuria, Denies dysuria, Denies nocturia and Denies urinary frequency Musc Denies neck pain Skin/Breast Denies rash Neuro Denies dizziness and Denies headache(s) Endo Denies fatigue and Denies palpitations Physical exam (Primary Care) Vital Signs: Last Vital Signs Pulse 66 03/21/24 09:27 BP 124/80 03/21/24 09:27 Pulse Ox 99 03/21/24 09:27 Oxygen Delivery Method Room Air 03/21/24 09:27 BMI result Body Mass Index 31.6 Tobacco/Smoking Status: Tobacco use Status Tobacco use date assessed 03/21/24 03/21/24 09:28 Patient Tobacco Use Status Former Tobacco user 03/21/24 09:28 e-Cigarette/Vaping Use Never Used 03/21/24 09:28 PHQ-9: PHQ-9 Score PHQ-9: Total score 0 03/21/24 09:28 Depression Screening Interpretation: Negative Thrive Assessment: Date of Thrive Assessment Date Thrive assessed 03/21/24 03/21/24 09:28 Currently or been in a relationship where the following occur: No concerns reported Const General: no acute distress and alert HENMT Ears: TM's normal bilaterally and EAC's normal Throat: Yes posterior oropharynx normal and Yes tonsils normal (no TP congestion noted) Neck Neck: Yes no lymphadenopathy and Yes supple Thyroid: Thyroid normal Resp Auscultation: clear to auscultation bilaterally, no rales and no wheezes Cardio Rate: regular rate Rhythm: regular rhythm Heart sounds: no murmurs GI Palpation (GI): Soft to palpation and nontender Auscultation: normal bowel sounds General: Yes no CVA tenderness Back/Spine/Pelvis Back: no CVA tenderness Thoracic/Lumbar Spine: thoracic and lumbar spine normal to inspection Skin Rashes: no rashes Extrem General: Yes no clubbing, cyanosis or edema Results Reviewed Results Reviewed: Laboratory Tests 03/13/24 03/13/24 07:00 07:03 WBC 6.2 Hgb 15.0 Hct 43.1 Plt Count 247 Sodium 139 Potassium 3.8 Creatinine 0.94 Estimated GFR > 60 Fasting Glucose 98 Hemoglobin A1c % 5.3 Calcium 9.5 AST 48 H ALT 81 H Triglycerides 201 H Cholesterol 170 LDL Cholesterol, Calc 99 HDL Cholesterol 31 L 25-OH Vitamin D Total 90.0 TSH 2.09 Ur Specific [place] <= 1.005 Urine Protein Negative Urine Glucose (UA) Negative Urine Blood Negative Urine Nitrite Negative Ur Leukocyte Esterase Negative Coding Level of Care Code Est Pt Level 4 (97089) Diagnoses Pure hypercholesterolemia E78.00 Benign essential hypertension I10 Impaired fasting glucose R73.01 Gastroesophageal reflux disease without esophagitis K21.9 Esophagitis presence: without esophagitis Elevated LFTs R79.89 Vitamin D deficiency E55.9 Urothelial carcinoma of bladder C67.9 Insomnia, unspecified type G47.00 Insomnia type: unspecified Obesity (BMI 30-39.9) E66.9 Additional Codes PHQ-9 - 54395 - PHQ-9 Billing: Yes ([id number]) Assessment & Plan Assessment & Plan (1) Pure hypercholesterolemia: Code(s): E78.00 - Pure hypercholesterolemia, unspecified Category: Medical Plan: Results of his labs done last week reviewed and discussed with patient - he is advised that his serum TG is still elevated but it has again improved from previous; his LDL cholesterol and total cholesterol numbers have improved slightly from previous as well Reinforced low cholesterol diet Patient prefers to continue with diet modification and avoid statins - he had myalgias while on statins in the past and more recently while on Fenofibrate as well States that his myalgias and recurrent sneezing (?) all cleared up after he stopped taking Fenofibrate 54 mg QD Will recheck his labs and fasting lipids in 4 months for follow up (2) Benign essential hypertension: Code(s): I10 - Essential (primary) hypertension Category: Medical Plan: Reinforced low sodium diet - goal is systolic BP of at least 140 to 150 mm or less Continue Losartan 100 mg QD, Amlodipine 10 mg QD and Metoprolol 25 mg BID; will increase his Hydralazine to 50 mg AM dose and continue at 25 mg in PM and 25 mg in the evening He is reminded to continue monitoring his blood pressure regularly (3) Impaired fasting glucose: Code(s): R73.01 - Impaired fasting glucose Category: Medical Plan: Reinforced low calorie diet/exercise as tolerated FBS was normal at 98 mg/dl on his labs done last week; HgbA1c was also normal now at 5.3% (was at 5.9% a few months ago) Will continue to monitor his blood sugar and glycemic control regularly (4) GERD (gastroesophageal reflux disease): Code(s): K21.9 - Gastro-esophageal reflux disease without esophagitis Category: Medical Qualifiers: Esophagitis presence: without esophagitis Qualified Code(s): K21.9 - Gastro-esophageal reflux disease without esophagitis Plan: Dietary restrictions reinforced Continue Prilosec OTC 20 mg QD Biopsy of the GE junction done at his last EGD showed (+) mild chronic active inflammation consistent with GERD Follow up with GI as scheduled (5) Elevated LFTs: Code(s): R79.89 - Other specified abnormal findings of blood chemistry Category: Medical Plan: Have advised patient that his LFTs are still elevated and are mostly unchanged from previous - this is most likely due to hepatosteatosis Abdominal US done last year in March 2023 revealed (+) hepatic steatosis and mild hepatomegaly CT done back in 2015 also revealed (+) hepatosteatosis Will continue to monitor his LFTs regularly (6) Vitamin D deficiency: Code(s): E55.9 - Vitamin D deficiency, unspecified Category: Medical Plan: Continue Vitamin D 2000 units QD (7) Urothelial carcinoma of bladder: Comment: Recurrent superficial high-grade June 2020 - good response to topical therapy Code(s): C67.9 - Malignant neoplasm of bladder, unspecified Category: Medical Plan: S/P TURBT on 09/27/[address] - pathology showed papillary urothelial carcinoma, high grade with no evidence of invasion into the muscularis propia S/P biopsy and coagulation (x3) of tumors and also S/P BCG Tx (for recurrence of his bladder cancer) - cystoscopy done a couple of years ago reportedly came out okay and repeat procedures in June 2019 and November 2019 also came out negative Repeat biopsy done last year showed (+) recurrence of his bladder cancer and he is S/P surgery/resection by Dr. Alvarez on 07/06/2020 S/P intravesical immunotherapy with Gemcitabine as well and at his last visit with urology, was reportedly advised that he is cleared of his bladder cancer Follow up with urology as scheduled - he remains on a 6 months surveillance schedule at this time (8) Insomnia: Code(s): G47.00 - Insomnia, unspecified Category: Medical Qualifiers: Insomnia type: unspecified Qualified Code(s): G47.00 - Insomnia, unspecified Plan: Sleep hygiene reinforced Continue Diphenhydramine 25 mg Q HS PRN (9) Obesity (BMI 30-39.9): Code(s): E66.9 - Obesity, unspecified Category: Medical Plan: Reinforced diet/exercise as tolerated/lose weight Plan Follow up in 4 months Orders: Orders UA CC w/rflx Micro + Cult 4 Months R30.0 - Dysuria Hemoglobin A1c 4 Months R73.01 - Impaired fasting glucose Complete Blood Count Auto Diff 4 Months D64.9 - Anemia, unspecified Comprehensive [place]. Panel Fast 4 Months E78.00 - Pure hypercholesterolemia, unspecified Lipid Panel 4 Months E78.00 - Pure hypercholesterolemia, unspecified TSH reflex Free T4 4 Months E78.00 - Pure hypercholesterolemia, unspecified Vitamin D 25-OH Total 4 Months E55.9 - Vitamin D deficiency, unspecified
[2024-03-21 09:27] VITALS: BP 124/80; PULSE 66; O2SAT 99; BMI 31.6
== END 2024-03-21 10:02 | disposition home or self-care (01) ==
PROVIDERS: PCP Internal Medicine; Visit Provider Internal Medicine
DX: E78.00 Pure hypercholesterolemia, unspecified (principal); C67.9 Malignant neoplasm of bladder, unspecified; E66.9 Obesity, unspecified; Z68.31 Body mass index [BMI] 31.0-31.9, adult; I10 Essential (primary) hypertension; R73.01 Impaired fasting glucose; K21.9 Gastro-esophageal reflux disease without esophagitis; R79.89 Other specified abnormal findings of blood chemistry; E55.9 Vitamin D deficiency, unspecified; G47.00 Insomnia, unspecified

== ENCOUNTER → 2024-03-21 09:20 | Outpatient (BNVA) | payer MEDICARE, BC, SELFPAY | PROVIDERS: PCP Internal Medicine; Visit Provider Internal Medicine | DX: E78.00 Pure hypercholesterolemia, unspecified (principal); I10 Essential (primary) hypertension; R73.01 Impaired fasting glucose; K21.9 Gastro-esophageal reflux disease without esophagitis; R79.89 Other specified abnormal findings of blood chemistry; E55.9 Vitamin D deficiency, unspecified; C67.9 Malignant neoplasm of bladder, unspecified; G47.00 Insomnia, unspecified; E66.9 Obesity, unspecified; Z68.31 Body mass index [BMI] 31.0-31.9, adult; Z71.3 Dietary counseling and surveillance | CPT/HCPCS: 96127; 99212 ==

== ENCOUNTER 2024-08-01 06:39 | Outpatient (REF) | payer MEDICARE, BC, SELFPAY ==
[2024-08-01 06:55] LABS: MANUAL DIFF FLAG NO
[2024-08-01 07:20] LABS: Basophils Absolute Auto 0.1 X10*3/uL (0.0-0.2); Basophils Percent Auto 0.7 % (0-2); Eosinophils Absolute Auto 0.2 X10*3/uL (0.0-0.4); Eosinophils Percent Auto 2.7 % (0-4); Hematocrit 42.2 % (42.0-52.0); Hemoglobin 14.9 g/dl (14.0-18.0); Imm Gran Abs Auto 0.02 X10*3/uL (0.00-0.03); Imm Gran Pct Auto 0.3 % (0.0-0.4); Lymphocytes Percent Auto 41.5 % (20-40); Mean Corpuscular HGB Conc 35.3 g/dl (31.0-36.0); Mean Corpuscular Hemoglobin 29.3 pg (27.0-33.0); Mean Corpuscular Volume 83.1 fL (80.0-98.0); Mean Platelet Volume 10.2 fL (9.4-12.4); Monocytes Absolute Auto 0.6 X10*3/uL (0.1-1.2); Monocytes Percent Auto 8.9 % (2-11); Neutrophils Absolute Auto 3.3 x10*3/uL (2.0-8.3); Neutrophils Percent Auto 45.9 % (45-73); Platelet Count 245 X10*3/uL (160-400); Red Blood Count 5.08 X10*6/uL (4.60-5.80); Red Cell Distribution Width 12.6 % (11.0-16.0); White Blood Count 7.1 X10*3/uL (4.8-10.8)
[2024-08-01 07:25] LABS: Estimated Average Glucose 100 mg/dL; Hemoglobin A1C 126.4838 umol/L; Hemoglobin A1c % 5.1 % (<6.0); Total Hemoglobin (HGBA1C) 3960.1156 umol/L
[2024-08-01 07:34] LABS: Appearance Urine Clear; Color Urine Yellow; Glucose Urine UA Negative (Negative); Leukocyte Esterase Urine Negative (Negative); Nitrite Urine Negative (Negative); Urine Blood Negative (Negative); Urine Ketones Negative (Negative); Urine Protein Negative (Neg-Trace)
[2024-08-01 08:02] LABS: Alanine Aminotransferase 46 U/L (0-40); Albumin Level 4.4 g/dL (3.5-5.0); Alkaline Phosphatase 60 U/L (39-117); Anion Gap 10 (12-20); Aspartate Amino Transferase 35 U/L (5-37); Bilirubin Total 1.1 mg/dL (0.0-1.0); Blood Urea Nitrogen 9 mg/dL (9-16); Calcium 8.9 mg/dL (8.4-10.2); Carbon Dioxide 28 mmol/L (22-29); Chloride 106 mmol/L (96-108); Cholesterol 167 mg/dL (<200); Estimated Glomerular Filt Rate > 60; Glucose Fasting 90 mg/dL (60-99); HDL Cholesterol 32 mg/dL (>40); LDL Cholesterol Calculated 99 mg/dL (<100); Potassium 3.2 mmol/L (3.3-5.1); Sodium 141 mmol/L (135-145); Total Protein 7.2 g/dL (6.5-8.0); Triglycerides 184 mg/dL (<150)
[2024-08-01 08:19] LABS: TSH reflex Free T4 1.94 uIU/mL (0.32-4.0); Vitamin D 25-OH Total 82.3 ng/mL (>30)
== END 2024-08-01 06:40 | disposition home or self-care (01) ==
LOC: HO.LAB 06:39
PROVIDERS: PCP Internal Medicine; Visit Provider Internal Medicine
DX: R30.0 Dysuria (principal); R73.01 Impaired fasting glucose; D64.9 Anemia, unspecified; E78.00 Pure hypercholesterolemia, unspecified; E55.9 Vitamin D deficiency, unspecified
CPT/HCPCS: 36415; 80053; 80061; 81003; 82306; 83036; 84443; 85025

== ENCOUNTER 2024-08-07 08:53 | Outpatient (AMB) | payer MEDICARE, BC, SELFPAY ==
[2024-08-07 09:02] VITALS: BP 122/78; PULSE 55; O2SAT 98; BMI 26.7
--- NOTE | 2024-08-07 09:02 | A.OFFPC_ITS ---
Vital Signs 08/07/24 09:02 Height 5 ft 4 in Weight 155 lb 6 oz BMI 26.7 BP 122/78 Blood Pressure Location Lt brachial Position Sitting Pulse 55 Pulse Source Pulse Oximeter Pulse Oximetry (%) 98 Oxygen Delivery Method Room Air Intake Visit Reasons: [facility] [place]er [place]rier Required: No Accompanied by: Self / Same As Patient Allergies amoxicillin Allergy (Severe, Verified 08/07/24 09:13) hives fenofibrate Adverse Reaction (Intermediate, Verified 08/07/24 09:13) myalgia, sneezing (?) codeine [CODEINE] Adverse Reaction (Mild, Verified 08/07/24 09:13) NAUSEA oxycodone [From PERCOCET] Adverse Reaction (Mild, Verified 08/07/24 09:13) NAUSEA & VOMITING Medication List - Last Reconciled 08/07/24 by Augusto Holman MD amlodipine 10 mg PO DAILY 90 days calcium carbonate (Calcium 600) 600 mg PO DAILY diphenhydramine HCl (Allergy (diphenhydramine)) 50 mg PO BEDTIME hydralazine Take 2 tablets (50 mg) in AM and continue at 25 mg in the afternoon and evening (total of 4 tablets a day) 90 days losartan 100 mg PO DAILY 90 days metoprolol tartrate 25 mg PO BID 90 days multivitamin (Daily Multi-Vitamin tablet) 1 tab PO DAILY omeprazole 20 mg PO DAILY Tobacco use date assessed: 08/07/24 Fall risk assessment: No Falls in past year Last assessed Fall Risk: 08/07/24 Dental Screening Dental Screen Date: 08/07/24 Did you have a dental visit in the last 12 months?: Yes Did you have a dental problem in the last 6 months where you did not have access to dental care?: No Was dental information given to patient?: Patient has dentist HPI [facility] HPI Details Patient comes in today for his follow up visit States that he feels okay He denies any headaches or dizziness Denies any chest pains, no SOB No nausea/vomiting, no abdominal pain No change in bowel habits noted He had his follow up labs done last week - to discuss his results [facility] Medical History Diplopia Hiatal hernia Hx of bladder cancer Murmur Obesity (BMI 30-39.9) Insomnia Urothelial carcinoma of bladder Vitamin D deficiency GERD (gastroesophageal reflux disease) Impaired fasting glucose Pure hypercholesterolemia Benign essential hypertension Surgical History History of esophagogastroduodenoscopy (EGD) History of biopsy of bladder History of cataract surgery History of bladder surgery History of colonoscopy H/O arthroscopy of knee History of hemorrhoidectomy Family History Father Hypertension Stroke Acute CVA (cerebrovascular accident) Mother Hypertension Diabetes CVD (cardiovascular disease) Brother In good health Social History Housing: House Alcohol intake: current Alcohol intake frequency: a few times a week Alcohol type: beer Patient Tobacco Use Status: Former Tobacco user e-Cigarette/Vaping Use: Never Used Second Hand Smoke Exposure: Yes service: Yes ([employer]) Current occupational status: retired Cognitive needs: No Hearing needs: No Vision needs: Yes Questionnaire PHQ-9 Over the last 2 weeks, how often have you been bothered by any of the following problems? 1. Little interest or pleasure in doing things: not at all 2. Feeling down, depressed, or hopeless: not at all 3. Trouble falling or staying asleep, or sleeping too much: not at all 4. Feeling tired or having little energy: not at all 5. Poor appetite or overeating: not at all 6. Feeling bad about yourself - or that you are a failure or have let yourself or your family down: not at all 7. Trouble concentrating on things, such as reading the newspaper or watching television: not at all 8. Moving or speaking so slowly that other people could have noticed. Or the opposite - being so fidgety or restless that you have been moving around a lot more than usual: not at all 9. Thoughts that you would be better off or of hurting yourself in some way: not at all Total score: 0 Depression Screening Interpretation: Negative Depression Screening Done: Yes 67442 - PHQ-9 Billing: Yes Source: Developed by Drs. Norm Elmore, Ana Shipman, Wojciech Campos and colleagues, with an educational daniel from [employer]. Thrive Questionnaire Date Thrive assessed: 08/07/24 I am a: Patient What is your living situation today?: I have a steady place to live Within the past 12 months, did the food you bought not last and you didn't have the money to get more?: Never true Within the past 12 months, did you worry whether your food would run out before you got money to buy more?: Never true Do you have trouble paying for medicines?: No Do you have trouble getting transportation to medical appointments?: No Do you have trouble paying your heating and electricity bill?: No Do you have trouble taking care of your child, family member or friend?: No Do you have trouble with day-to-day activities such as bathing, preparing meals, shopping, managing finances, etc.?: No Are you currently unemployed and looking for a job?: No Are you interested in more education?: No Please select the resources that you would like help with: None Currently or been in a relationship where the following occur: No concerns reported THRIVE Score: 0 AUDIT C Alcohol Use Questionnaire (AUDIT-C) 1. How often do you have a drink containing alcohol?: Monthly or less 2. How many drinks containing alcohol do you have on a typical day when you are drinking?: 1 or 2 3. How often do you have six or more drinks on one occasion?: Never Total Score: 1 Score Reviewed/Action Taken: Yes BRONWYN-7 AMB Questionnaire BRONWYN-7 Date BRONWYN - 7 assessed: 08/07/24 Feeling nervous, anxious, or on edge: 0 = Not at all Not being able to stop or control worryin = Not at all Worrying too much about different things: 0 = Not at all Trouble relaxin = Not at all Being so restless that it is hard to sit still: 0 = Not at all Becoming easily annoyed or irritable: 0 = Not at all Feeling afraid as if something awful might happen: 0 = Not at all Total BRONWYN-7 score (0-4 normal; 5-9 mild; 10-14 moderate; 15-21 severe): 0 Source: Developed by Drs. Norm Elmore, Wojciech Addison and colleagues, with an educational daniel from [employer] Review of Systems Const Denies chills, Denies fatigue, Denies fever(s) and Denies headache(s) ENT Denies dysphagia, Denies dizziness, Denies otalgia, Denies headache(s), Denies neck pain, Denies odynophagia and Denies sore throat Card Denies chest pain, Denies palpitations and Denies dyspnea Resp Denies chest congestion, Denies cough and Denies dyspnea GI Denies abdominal pain, Denies constipation, Denies dysphagia, Denies heartburn, Denies diarrhea, Denies nausea, Denies odynophagia and Denies vomiting Denies hematuria, Denies dysuria, Denies nocturia and Denies urinary frequency Musc Denies back pain and Denies neck pain Skin/Breast Denies rash Neuro Denies dizziness and Denies headache(s) Endo Denies fatigue and Denies palpitations Physical exam (Primary Care) Vital Signs: Last Vital Signs Pulse 55 08/07/24 09:02 BP 122/78 08/07/24 09:02 Pulse Ox 98 08/07/24 09:02 Oxygen Delivery Method Room Air 08/07/24 09:02 BMI result Body Mass Index 26.7 Tobacco/Smoking Status: Tobacco use Status Tobacco use date assessed 08/07/24 08/07/24 09:08 Patient Tobacco Use Status Former Tobacco user 08/07/24 09:08 e-Cigarette/Vaping Use Never Used 08/07/24 09:08 PHQ-9: PHQ-9 Score PHQ-9: Total score 0 08/07/24 09:08 Depression Screening Interpretation: Negative Thrive Assessment: Date of Thrive Assessment Date Thrive assessed 08/07/24 08/07/24 09:08 Currently or been in a relationship where the following occur: No concerns reported Const General: no acute distress and alert HENMT Ears: TM's normal bilaterally and EAC's normal Throat: Yes posterior oropharynx normal and Yes tonsils normal (no TP congestion noted) Neck Neck: Yes supple and No lymphadenopathy Thyroid: Thyroid normal Resp Auscultation: clear to auscultation bilaterally, no rales and no wheezes Cardio Rate: regular rate Rhythm: regular rhythm Heart sounds: no murmurs GI Palpation (GI): Soft to palpation and nontender Auscultation: normal bowel sounds General: Yes no CVA tenderness Back/Spine/Pelvis Back: no CVA tenderness Thoracic/Lumbar Spine: No lumbar spinal tenderness Skin Rashes: no rashes Extrem General: Yes no clubbing, cyanosis or edema Results Reviewed Results Reviewed: Laboratory Tests 08/01/24 08/01/24 06:52 06:54 WBC 7.1 Hgb 14.9 Hct 42.2 Plt Count 245 Sodium 141 Potassium 3.2 L Creatinine 0.76 Estimated GFR > 60 Fasting Glucose 90 Hemoglobin A1c % 5.1 Calcium 8.9 D AST 35 ALT 46 H Triglycerides 184 H Cholesterol 167 LDL Cholesterol, Calc 99 HDL Cholesterol 32 L 25-OH Vitamin D Total 82.3 TSH 1.94 Ur Specific [place] 1.010 Urine Protein Negative Urine Glucose (UA) Negative Urine Blood Negative Urine Nitrite Negative Ur Leukocyte Esterase Negative Coding Level of Care Code Est Pt Level 4 (99912) Complex EM visit Add On G2211 Diagnoses Pure hypercholesterolemia E78.00 Benign essential hypertension I10 Impaired fasting glucose R73.01 Gastroesophageal reflux disease without esophagitis K21.9 Esophagitis presence: without esophagitis Elevated LFTs R79.89 Vitamin D deficiency E55.9 Urothelial carcinoma of bladder C67.9 Insomnia, unspecified type G47.00 Insomnia type: unspecified Overweight (BMI 25.0-29.9) E66.3 Additional Codes PHQ-9 - 82177 - PHQ-9 Billing: Yes ([id number]) Assessment & Plan Assessment & Plan (1) Pure hypercholesterolemia: Code(s): E78.00 - Pure hypercholesterolemia, unspecified Category: Medical Plan: Results of his labs done last week reviewed and discussed with patient - his serum TG level has again improved from previous Reinforced low cholesterol diet Patient prefers to continue with diet modification and avoid any statin Tx - he had myalgias while on statins in the past and more recently while on Fenofibrate as well Will recheck his labs and fasting lipids in 4 months for follow up (2) Benign essential hypertension: Code(s): I10 - Essential (primary) hypertension Category: Medical Plan: Reinforced low sodium diet - goal is systolic BP of at least 140 to 150 mm or less Continue Losartan 100 mg QD, Amlodipine 10 mg QD, Metoprolol 25 mg BID and Hydralazine 50 mg in AM, 25 mg in PM and 25 mg in the evening He is reminded to continue monitoring his blood pressure regularly (3) Impaired fasting glucose: Code(s): R73.01 - Impaired fasting glucose Category: Medical Plan: Reinforced low calorie diet/exercise as tolerated FBS was normal at 90 mg/dl on his labs done last week; HgbA1c was also normal at 5.1% (was at 5.3% previously) Will continue to monitor his blood sugar and glycemic control regularly (4) GERD (gastroesophageal reflux disease): Code(s): K21.9 - Gastro-esophageal reflux disease without esophagitis Category: Medical Qualifiers: Esophagitis presence: without esophagitis Qualified Code(s): K21.9 - Gastro-esophageal reflux disease without esophagitis Plan: Dietary restrictions reinforced Continue Prilosec OTC 20 mg QD Biopsy of the GE junction done at his last EGD showed (+) mild chronic active inflammation consistent with GERD Follow up with GI as scheduled (5) Elevated LFTs: Code(s): R79.89 - Other specified abnormal findings of blood chemistry Category: Medical Plan: His LFTs have improved from previous although his ALT is still slightly elevated - these are most likely due to hepatosteatosis Abdominal US done in March 2023 revealed (+) hepatic steatosis and mild hepatomegaly CT done back in 2015 also revealed (+) hepatosteatosis Will continue to monitor his LFTs regularly (6) Vitamin D deficiency: Code(s): E55.9 - Vitamin D deficiency, unspecified Category: Medical Plan: Continue Vitamin D 2000 units QD (7) Urothelial carcinoma of bladder: Comment: Recurrent superficial high-grade June 2020 - good response to topical therapy Code(s): C67.9 - Malignant neoplasm of bladder, unspecified Category: Medical Plan: S/P TURBT on 09/27/[address] - pathology showed papillary urothelial carcinoma, high grade with no evidence of invasion into the muscularis propia S/P biopsy and coagulation (x3) of tumors and also S/P BCG Tx (for recurrence of his bladder cancer) - cystoscopy done a couple of years ago reportedly came out okay and repeat procedures in June 2019 and November 2019 also came out negative Repeat biopsy done last year showed (+) recurrence of his bladder cancer and he is S/P surgery/resection by Dr. Alvarez on 07/06/2020 S/P intravesical immunotherapy with Gemcitabine as well and at his last visit with urology, was reportedly advised that he is cleared of his bladder cancer Follow up with urology as scheduled - he remains on a 6 months surveillance schedule at this time (8) Insomnia: Code(s): G47.00 - Insomnia, unspecified Category: Medical Qualifiers: Insomnia type: unspecified Qualified Code(s): G47.00 - Insomnia, unspecified Plan: Sleep hygiene reinforced Continue Diphenhydramine 25 mg Q HS PRN (9) Overweight (BMI 25.0-29.9): Code(s): E66.3 - Overweight Category: Medical Plan: Reinforced diet/exercise as tolerated/lose weight - he has been able to lose over 30 pounds since his last visit Plan Follow up in 4 months Orders: Orders Comprehensive [place]. Panel Fast 4 Months E78.00 - Pure hypercholesterolemia, unspecified TSH reflex Free T4 4 Months E78.00 - Pure hypercholesterolemia, unspecified Vitamin D 25-OH Total 4 Months E55.9 - Vitamin D deficiency, unspecified Complete Blood Count Auto Diff 4 Months D64.9 - Anemia, unspecified Lipid Panel 4 Months E78.00 - Pure hypercholesterolemia, unspecified Hemoglobin A1c 4 Months R73.01 - Impaired fasting glucose UA CC w/rflx Micro + Cult 4 Months R30.0 - Dysuria
== END 2024-08-07 09:34 | disposition home or self-care (01) ==
LOC: HO.HMCH 08:53
PROVIDERS: PCP Internal Medicine; Visit Provider Internal Medicine
DX: E78.00 Pure hypercholesterolemia, unspecified (principal); I10 Essential (primary) hypertension; C67.9 Malignant neoplasm of bladder, unspecified; R73.01 Impaired fasting glucose; K21.9 Gastro-esophageal reflux disease without esophagitis; R79.89 Other specified abnormal findings of blood chemistry; E55.9 Vitamin D deficiency, unspecified; G47.00 Insomnia, unspecified; E66.3 Overweight

== ENCOUNTER → 2024-08-07 08:53 | Outpatient (BNVA) | payer MEDICARE, BC, SELFPAY | PROVIDERS: PCP Internal Medicine; Visit Provider Internal Medicine | DX: E78.00 Pure hypercholesterolemia, unspecified (principal); I10 Essential (primary) hypertension; K21.9 Gastro-esophageal reflux disease without esophagitis; R79.89 Other specified abnormal findings of blood chemistry; E55.9 Vitamin D deficiency, unspecified; C67.9 Malignant neoplasm of bladder, unspecified; G47.00 Insomnia, unspecified; E66.3 Overweight; D64.9 Anemia, unspecified; R73.01 Impaired fasting glucose; R30.0 Dysuria; Z87.891 Personal history of nicotine dependence; Z68.26 Body mass index [BMI] 26.0-26.9, adult | CPT/HCPCS: 96127; 99212 ==

== ENCOUNTER 2024-09-12 13:48 | Outpatient (AMB) | payer MEDICARE, BC, SELFPAY ==
--- NOTE | 2024-09-12 13:52 | A.OFFVIS_ITS ---
Intake Visit Reasons: cysto Intake Note: Pt presents to the office today for a cystoscopy procedure. Cystoscope: Lot:[id number] Exp:09/06/26 Allergies amoxicillin Allergy (Severe, Verified 09/12/24 13:52) hives fenofibrate Adverse Reaction (Intermediate, Verified 09/12/24 13:52) myalgia, sneezing (?) codeine [CODEINE] Adverse Reaction (Mild, Verified 09/12/24 13:52) NAUSEA oxycodone [From PERCOCET] Adverse Reaction (Mild, Verified 09/12/24 13:52) NAUSEA & VOMITING HPI Comments Details: Linwood is a pleasant male. He is a patient of Dr. Holman. He is seen for the following urologic conditions - superficial bladder cancer - scrotal angiokeratoma Six-month follow-up check cystoscopy NAD Continue surveillance PSA 10/20 2.6 Bladder cancer June 2020 superficial high-grade bladder cancer - recurrent August 2018, January 2019, July 2020 Prior history of superficial bladder cancer. TURBT August 2018 superficial high-grade, January 2019 superficial high-grade, Jun 2020 superficial high-grade Adjuvant therapy January 2019 induction BCG with boost, - July 2020 induction gemcitabine - November 2020 boost gemcitabine - June 2021 boost gemcitabine - January 2022 Gemcitabine - March 2023 Gemcitabine Cystoscopy - December 2019 NAD - June 2020 small lesion in bladder - Nov 2020 NAD, March 2021 NAD, August 2021 NAD, Mar 2022 patchy areas of redness, 11/20 NAD, 03/23 NAD, 10/22 NAD, 03/24 NAD Cytology - 03/21 Negative, 06/22 Negative, 09/19 rare atypical, 04/21 atypical, 09/21 FISH NAD, 02/21 NAD PFSH Medical History Diplopia Hiatal hernia Hx of bladder cancer Murmur Obesity (BMI 30-39.9) Insomnia Urothelial carcinoma of bladder Vitamin D deficiency GERD (gastroesophageal reflux disease) Impaired fasting glucose Pure hypercholesterolemia Benign essential hypertension Surgical History History of esophagogastroduodenoscopy (EGD) History of biopsy of bladder History of cataract surgery History of bladder surgery History of colonoscopy H/O arthroscopy of knee History of hemorrhoidectomy Family History Father Hypertension Stroke Acute CVA (cerebrovascular accident) Mother Hypertension Diabetes CVD (cardiovascular disease) Brother In good health Social History Housing: House Alcohol intake: current Alcohol intake frequency: a few times a week Alcohol type: beer Patient Tobacco Use Status: Former Tobacco user e-Cigarette/Vaping Use: Never Used Second Hand Smoke Exposure: Yes service: Yes ([employer]) Current occupational status: retired Cognitive needs: No Hearing needs: No Vision needs: Yes Review of Systems Const Denies chills and Denies fever(s) Card Reports no additional complaints and Denies syncope Resp Denies cough GI Denies abdominal pain and Denies heartburn Reports as per HPI and Denies change in libido Neuro Denies syncope Psych Denies change in libido Endo Denies change in libido Physical Exam Const General: cooperative, healthy appearing, comfortable and no acute distress Orientation/consciousness: patient oriented x3 HEENT Face and sinus: Yes normal facial exam Mouth: moist mucous membranes Neck Neck: Yes normal visual inspection, Yes full ROM and Yes trachea midline Chest Chest palpation & inspection: normal inspection of the chest Resp Effort & Inspection: normal respiratory effort, able to speak in complete sentences and no respiratory distress GI Inspection: Yes normal to inspection Back/Spine/Pelvis Cervical Spine: normal cervical lordosis Thoracic/Lumbar Spine: thoracic and lumbar spine normal to inspection Skin General skin exam: no rashes or lesions noted Neuro General: patient oriented x3, gait normal, tone normal and moves all extremities Extrem General: Yes normal to inspection and Yes capillary refill normal Office Procedures Cystoscopy Consent Discussed risk and benefit or proposed procedure with the patient. Information consent for procedure given to the patient. Discussed technical aspects, risks, benefits and alternatives in full. Addressed all of the patient's questions and concerns regarding the procedure. The patient demonstrated knowledge and understanding. They wish to proceed with this procedure. Preparation The patient was prepped in the usual manner. A inspector materials and processes was present and in the room. Genitalia was prepped with betadine solution in a sterile manner. Lidocaine Jelly 2% was placed into the urethra and 16Fr flexible Olympus cystoscope was inserted into the meatus after adequate lubrication. Procedure Cystoscopy performed using a disposable BodBotvue digital 16 [place] cystoscope. Meatus uncircumcised Urethra anterior and posterior urethra normal Prostatic Urethra unremarkable TURP defect Bladder examination with retroflexion of cystoscope Bladder Orifices normal shape and position Bladder Capacity large Trabeculations grade 1/2 Cellule Formation yes Diverticulum Formation None Mucosal Erythema None Bladder Tumor None [id number] DISPOSABLE SCOPE URO-G FLEXIBLE SCOPE Procedure code (CPT) selection complete Office Meds lidocaine HCl 2 % mucosal jelly in applicator Performing Provider: Vince Alvarez MD Performing Location: [facility] Administered by: Anil Byers LPN on 09/12/24 14:01 Dose Route Admin Location Dispensed Lot Number Expiration Date NDC Scrap Baler 10 mL intra-urethral 10 mL nitrofurantoin monohydrate/macrocrystals 100 mg capsule Performing Provider: Vince Alvarez MD Performing Location: [facility] Administered by: Anil Byers LPN on 09/12/24 14:01 Dose Route Admin Location Dispensed Lot Number Expiration Date NDC Scrap Baler 100 mg PO 1 cap Results AMB Urinalysis, Automated UA Leukoctes 0 Jer/uL Last Edit by Marianna Munroe CMA on 09/12/24 14:01 UA Nitrite Negative Last Edit by Marianna Munroe CMA on 09/12/24 14:01 UA Urobilinogen 0.2 mg/dL Last Edit by Marianna Munroe CMA on 09/12/24 14:01 UA Protein 0 mg/dL Last Edit by Marianna Munroe CMA on 09/12/24 14:01 UA pH 7.0 Last Edit by Marianna Munroe CMA on 09/12/24 14:01 UA Blood 0 Navin/uL Last Edit by Marianna Munroe CMA on 09/12/24 14:01 UA Specific [place] 1.005 Last Edit by Marianna Munroe CMA on 09/12/24 14:01 UA Ketone Negative Last Edit by Marianna Munroe CMA on 09/12/24 14:01 UA Bilirubin 0 mg/dL Last Edit by Marianna Munroe CMA on 09/12/24 14:01 UA Glucose 0 mg/dL Last Edit by Marianna Munroe CMA on 09/12/24 14:01 Results Reviewed Results Reviewed: Laboratory Last Values Urine pH (Auto) 7.0 09/12/24 13:59 Specific [place] (Auto) 1.005 09/12/24 13:59 Urine Protein (Auto) 0 mg/dL 09/12/24 13:59 Glucose (UA)(Auto) 0 mg/dL 09/12/24 13:59 Urine Ketones (Auto) Negative 09/12/24 13:59 Urine Blood (Auto) 0 Navin/uL 09/12/24 13:59 Urine Nitrite (Auto) Negative 09/12/24 13:59 Urine Bilirubin (Auto) 0 mg/dL 09/12/24 13:59 Urine Urobilinogen (Auto) 0.2 mg/dL 09/12/24 13:59 Leukocyte Esterase (Auto) 0 Jer/uL 09/12/24 13:59 Assessment & Plan Assessment & Plan (1) Urothelial carcinoma of bladder: Comment: Recurrent superficial high-grade June 2020 - good response to topical therapy Code(s): C67.9 - Malignant neoplasm of bladder, unspecified Category: Medical Plan Six-month follow-up cystoscopy Orders: Orders AMB Urinalysis Automated Today Z85.51 - Personal history of malignant neoplasm of bladder AMB Cystoscopy Today Z85.51 - Personal history of malignant neoplasm of bladder Patient Instructions: This note is constructed using voice recognition software. While every effort has been made to ensure accuracy accounting practice manager errors may have been included. Imaging studies, laboratory and physical exam results were discussed and reviewed in detail. No major barriers to patient understanding were identified. An opportunity to ask questions regarding the treatment plan was provided. All questions were answered. The patient expressed understanding and agreement with the above treatment plan. The patient is aware they should contact our office by phone for worsening of their current condition or the appearance of new urologic symptoms. Compliance is encouraged with any medications and followup testing that is ordered. It is a privilege to participate in the urologic care of your patient. If you have any questions or concerns regarding treatment for the above conditions, or other urologic issues, please do not hesitate to contact me. The office telephone contact is [phone]. Sincerely, Dr Vince Alvarez MD, [facility] - Urology Compassionate Specialist Care for the Genitourinary System Coding Level of Care Code Est Pt Level 3 (87329) Complex EM visit Add On G2211 Diagnoses Urothelial carcinoma of bladder C67.9 CPT Codes Cystoscopy - CPT: 24912-[id number] ([id number])
== END 2024-09-12 14:24 | disposition home or self-care (01) ==
LOC: HO.HUSH 13:49
PROVIDERS: PCP Internal Medicine; Visit Provider Urology
DX: C67.9 Malignant neoplasm of bladder, unspecified (principal); Z85.51 Personal history of malignant neoplasm of bladder
CPT/HCPCS: 52000; 99213

== ENCOUNTER → 2024-09-12 13:48 | Outpatient (BNVA) | payer MEDICARE, BC, SELFPAY | PROVIDERS: PCP Internal Medicine; Visit Provider Urology | DX: D29.4 Benign neoplasm of scrotum (principal); C67.9 Malignant neoplasm of bladder, unspecified | CPT/HCPCS: 52000; 81003; 99212 ==

== ENCOUNTER 2024-12-26 06:47 | Outpatient (REF) | payer MEDICARE, BC, SELFPAY ==
--- OUTSIDE RECORDS SUMMARY | 2024-12-26 06:51 | XMS_ITS | Patient Health Record ---
Author Organization [facility] Address [address] [place] [address] Care Team Providers Care Sfdc Consultant Name Role Phone River ROJAS, Augusto Primary Care Provider Norm Turcios Unavailable [phone] Allergies Allergen (clinical drug ingredient) Drug/Non Drug Allergy documented on EMR Reaction Allergy Type Onset Date Status codeine Codeine Sulfate Unknown Drug Allergy A ctive Reason For Referral No Information Medications Medication SIG (Take, Route, Frequency, Duration) Notes Start Date End Date Status Flaxseed Oil 1000 MG 1 Orally qd Active Vitamin D3 1000 UNIT 1 capsule Orally On ce a day Active diphenhydrAMINE HCl (Sleep) 50 MG 1 capsule at bedtime Orally Once a day Active Multi Vitamin/Minerals 1 1 Orally qd Active Calcium 500 + D 500-125 MG-UNIT 1 tablet with food Orally Once a day Active Colyte w Flavor Packs 240 GM as directed Orally as directed for 1 day(s) 12/10/2014 Active PriLOSEC OTC 20 MG 1 tablet Orally Once a day Active Lisinopril 5 MG 1 tablet Orally Once a day Active Immunizations Vaccine Route Administration Date Status Comme nts Flu vaccine no Preserv 3 and > Unknown 02/19/2014 Admin istered Problems Problem Type SNOMED Code ICD Code Onset Dates Problem Status W/U Status Risk Notes Problem Blood in stool (004604423) Blood in stool (578.1) Active confirmed Problem Colon cancer screening (211763265) Colon cancer screening (V76.51) Active confirmed Problem Gastroesophageal reflux disease (657267632) GERD (gastroesopha geal reflux disease) (530.81) Active confirmed Plan Of Treatment Pending Test Test Name Order Date GI BIOPSY 02/17/2015 Future Test Test Name Order Date UPPER GI ENDOSCOPY 12/09/2014 COLONOSCOPY 12/09/2014 Insurance Providers Payer Name Payer Address Payer Phone Subscriber Number Group Number Insured Name Patient Relationship to Insured Coverage Start Date Coverage End Date MEDICARE OF [place] [address] [place] [id number] BRITTANY NIEVES Self - patient is the insured [facility] [address] [place], [place] [id number] BRITTANY NIEVES Self - patient is the insured Medical (General) History Medical History History ICD Code HTN Denies [place],DM,CVA,Lung disease,renal dise ase GERD--upper GI series in 2007 described a small hiatal hernia and reflux Neg. colonoscopy [place] [address] Booker Surgical History Surgery Date(Month/Year) knee surgery-right 1989 hemorrhoidectomy tooth extraction
[2024-12-26 07:00] LABS: MANUAL DIFF FLAG NO
[2024-12-26 07:14] LABS: Hematocrit 40.8 % (42.0-52.0); Hemoglobin 14.1 g/dl (14.0-18.0); Imm Gran Abs Auto 0.01 X10*3/uL (0.00-0.03); Imm Gran Pct Auto 0.1 % (0.0-0.4); Lymphocytes Absolute Auto 3.1 X10*3/uL (1.2-4.9); Mean Corpuscular HGB Conc 34.6 g/dl (31.0-36.0); Mean Corpuscular Hemoglobin 29.0 pg (27.0-33.0); Mean Corpuscular Volume 83.8 fL (80.0-98.0); NRBC Abs Auto 0.000 X10*3/uL (0.0-0.012); NRBC Pct Auto 0.0 /100WBC (0.0-0.2); Platelet Count 246 X10*3/uL (160-400); Red Blood Count 4.87 X10*6/uL (4.60-5.80); White Blood Count 7.4 X10*3/uL (4.8-10.8)
[2024-12-26 07:57] LABS: Hemoglobin A1C 145.7957 umol/L; Total Hemoglobin (HGBA1C) 3739.5878 umol/L
[2024-12-26 07:58] LABS: Alanine Aminotransferase 50 U/L (0-40); Albumin Level 4.6 g/dL (3.5-5.0); Alkaline Phosphatase 52 U/L (39-117); Anion Gap 14 (12-20); Aspartate Amino Transferase 38 U/L (5-37); Blood Urea Nitrogen 14 mg/dL (9-16); Calcium 8.9 mg/dL (8.4-10.2); Carbon Dioxide 30 mmol/L (22-29); Chloride 100 mmol/L (96-108); Cholesterol 205 mg/dL (<200); Estimated Glomerular Filt Rate > 60; HDL Cholesterol 29 mg/dL (>40); Potassium 3.5 mmol/L (3.3-5.1); Sodium 140 mmol/L (135-145); Total Protein 7.5 g/dL (6.5-8.0); Triglycerides 287 mg/dL (<150)
[2024-12-26 09:27] LABS: Appearance Urine Clear; Glucose Urine UA Negative (Negative); PH 6.5 (5.0-9.0); Specific Gravity - Urine 1.010 (1.005-1.025)
== END 2024-12-26 06:48 | disposition home or self-care (01) ==
LOC: HO.LAB 06:47
PROVIDERS: PCP Internal Medicine; Visit Provider Internal Medicine
DX: R73.01 Impaired fasting glucose (principal); R30.0 Dysuria; E78.00 Pure hypercholesterolemia, unspecified; E55.9 Vitamin D deficiency, unspecified; D64.9 Anemia, unspecified
CPT/HCPCS: 36415; 80053; 80061; 81003; 82306; 83036; 84443; 85025

== ENCOUNTER 2025-01-01 08:50 | Outpatient (AMB) | payer MEDICARE, BC, SELFPAY ==
--- NOTE | 2025-01-01 08:52 | A.OFFPC_ITS ---
Vital Signs 01/01/25 08:54 Height 5 ft 1.02 in Weight 173 lb 6 oz BMI 32.7 BP 142/66 H Blood Pressure Location Lt brachial Position Sitting Pulse 63 Pulse Source Pulse Oximeter Temp 97.3 F Temp Source Temporal Artery Scan Pulse Oximetry (%) 97 Oxygen Delivery Method Room Air Intake Visit Reasons: 4mth f/u Intake Note: Patient is here to follow up on GERD, IFG, HTN, Hypercholesterolemia. Zinc Plate Cutter Required: No Title I Director: Not Required per policy Accompanied by: Self / Same As Patient Allergies amoxicillin Allergy (Severe, Verified 01/01/25 09:24) hives fenofibrate Adverse Reaction (Intermediate, Verified 01/01/25 09:24) myalgia, sneezing (?) codeine (CODEINE) Adverse Reaction (Mild, Verified 01/01/25 09:24) NAUSEA oxycodone (From PERCOCET) Adverse Reaction (Mild, Verified 01/01/25 09:24) NAUSEA & VOMITING Medication List - Last Reconciled 01/01/25 by Augusto Holman MD amlodipine 10 mg PO DAILY 90 days calcium carbonate (Calcium 600) 600 mg PO DAILY diphenhydramine HCl (Allergy (diphenhydramine)) 50 mg PO BEDTIME hydralazine Take 2 tablets (50 mg) in AM and continue at 25 mg in the afternoon and evening (total of 4 tablets a day) 90 days losartan 100 mg PO DAILY 90 days metoprolol tartrate 25 mg PO BID 90 days multivitamin (Daily Multi-Vitamin tablet) 1 tab PO DAILY omeprazole 20 mg PO DAILY Tobacco use date assessed: 01/01/25 Fall risk assessment: No Falls in past year Last assessed Fall Risk: 01/01/25 Dental Screening Dental Screen Date: 08/07/24 HPI 4mt f/u HPI Details Patient comes in today for his follow up visit States that he feels okay He has gained almost 20 pounds since his last visit He denies any headaches or dizziness Denies any chest pains, no SOB No nausea/vomiting, no abdominal pain No change in bowel habits noted He had his follow up labs done last week - to discuss his results [facility] Medical History Diplopia Hiatal hernia Hx of bladder cancer Murmur Obesity (BMI 30-39.9) Insomnia Urothelial carcinoma of bladder Vitamin D deficiency GERD (gastroesophageal reflux disease) Impaired fasting glucose Pure hypercholesterolemia Benign essential hypertension Surgical History History of esophagogastroduodenoscopy (EGD) History of biopsy of bladder History of cataract surgery History of bladder surgery History of colonoscopy H/O arthroscopy of knee History of hemorrhoidectomy Family History Father Hypertension Stroke Acute CVA (cerebrovascular accident) Mother Hypertension Diabetes CVD (cardiovascular disease) Brother In good health Social History Housing: House Alcohol intake: current Alcohol intake frequency: a few times a week Alcohol type: beer Patient Tobacco Use Status: Former Tobacco user e-Cigarette/Vaping Use: Never Used Second Hand Smoke Exposure: Yes service: Yes ([employer]) Current occupational status: retired Cognitive needs: No Hearing needs: No Vision needs: Yes Questionnaire PHQ-9 Over the last 2 weeks, how often have you been bothered by any of the following problems? 1. Little interest or pleasure in doing things: not at all 2. Feeling down, depressed, or hopeless: not at all 3. Trouble falling or staying asleep, or sleeping too much: not at all 4. Feeling tired or having little energy: not at all 5. Poor appetite or overeating: not at all 6. Feeling bad about yourself - or that you are a failure or have let yourself or your family down: not at all 7. Trouble concentrating on things, such as reading the newspaper or watching television: not at all 8. Moving or speaking so slowly that other people could have noticed. Or the opposite - being so fidgety or restless that you have been moving around a lot more than usual: not at all 9. Thoughts that you would be better off or of hurting yourself in some way: not at all Total score: 0 Depression Screening Interpretation: Negative Depression Screening Done: Yes 16552 - PHQ-9 Billing: Yes Source: Developed by Drs. Norm Elmore, Ana Shipman, Wojciech Campos and colleagues, with an educational daniel from [employer]. Thrive Questionnaire Date Thrive assessed: 01/01/25 I am a: Patient What is your living situation today?: I have a steady place to live Within the past 12 months, did the food you bought not last and you didn't have the money to get more?: Never true Within the past 12 months, did you worry whether your food would run out before you got money to buy more?: Never true Do you have trouble paying for medicines?: No Do you have trouble getting transportation to medical appointments?: No Do you have trouble paying your heating and electricity bill?: No Do you have trouble taking care of your child, family member or friend?: No Do you have trouble with day-to-day activities such as bathing, preparing meals, shopping, managing finances, etc.?: No Are you currently unemployed and looking for a job?: No Are you interested in more education?: No Please select the resources that you would like help with: None Currently or been in a relationship where the following occur: No concerns reported THRIVE Score: 0 AUDIT C Alcohol Use Questionnaire (AUDIT-C) 1. How often do you have a drink containing alcohol?: 2-4 times a month Total Score: 2 Score Reviewed/Action Taken: Yes BRONWYN-7 AMB Questionnaire BRONWYN-7 Date BRONWYN - 7 assessed: 08/07/24 Feeling nervous, anxious, or on edge: 0 = Not at all Not being able to stop or control worryin = Not at all Worrying too much about different things: 0 = Not at all Trouble relaxin = Not at all Being so restless that it is hard to sit still: 0 = Not at all Becoming easily annoyed or irritable: 0 = Not at all Feeling afraid as if something awful might happen: 0 = Not at all Total BRONWYN-7 score (0-4 normal; 5-9 mild; 10-14 moderate; 15-21 severe): 0 Source: Developed by Drs. Norm Elmore, Ana Shipman, Wojciech Campos and colleagues, with an educational daniel from [employer]. Review of Systems Const Denies chills, Denies fatigue, Denies fever(s) and Denies headache(s) ENT Denies dysphagia, Denies dizziness, Denies otalgia, Denies headache(s), Denies neck pain, Denies odynophagia and Denies sore throat Card Denies chest pain, Denies palpitations and Denies dyspnea Resp Denies chest congestion, Denies cough and Denies dyspnea GI Denies abdominal pain, Denies constipation, Denies dysphagia, Denies heartburn, Denies diarrhea, Denies nausea, Denies odynophagia and Denies vomiting Denies hematuria, Denies difficulty urinating, Denies dysuria, Denies nocturia and Denies urinary frequency Musc Denies back pain and Denies neck pain Skin/Breast Denies rash Neuro Denies dizziness and Denies headache(s) Endo Denies fatigue and Denies palpitations Physical exam (Primary Care) Vital Signs: Last Vital Signs Temp 97.3 F 01/01/25 08:54 Pulse 63 01/01/25 08:54 BP 142/66 H 01/01/25 08:54 Pulse Ox 97 01/01/25 08:54 Oxygen Delivery Method Room Air 01/01/25 08:54 BMI result Body Mass Index 32.7 Tobacco/Smoking Status: Tobacco use Status Tobacco use date assessed 01/01/25 01/01/25 08:59 Patient Tobacco Use Status Former Tobacco user 01/01/25 08:59 e-Cigarette/Vaping Use Never Used 01/01/25 08:59 PHQ-9: PHQ-9 Score PHQ-9: Total score 0 01/01/25 08:59 Depression Screening Interpretation: Negative Thrive Assessment: Date of Thrive Assessment Date Thrive assessed 12/25/24 01/01/25 08:59 Currently or been in a relationship where the following occur: No concerns reported Const General: no acute distress and alert HENMT Ears: TM's normal bilaterally and EAC's normal Throat: Yes posterior oropharynx normal and Yes tonsils normal (no TP congestion noted) Neck Neck: Yes supple and No lymphadenopathy Thyroid: Thyroid normal Resp Auscultation: clear to auscultation bilaterally, no rales and no wheezes Cardio Rate: regular rate Rhythm: regular rhythm Heart sounds: no murmurs GI Palpation (GI): Soft to palpation and nontender Auscultation: normal bowel sounds General: Yes no CVA tenderness Back/Spine/Pelvis Back: no CVA tenderness Thoracic/Lumbar Spine: No lumbar spinal tenderness Skin Rashes: no rashes Extrem General: Yes no clubbing, cyanosis or edema Results Reviewed Results Reviewed: Laboratory Tests 12/26/24 12/26/24 06:58 08:30 WBC 7.4 Hgb 14.1 Hct 40.8 L Plt Count 246 Sodium 140 Potassium 3.5 Creatinine 0.98 Estimated GFR > 60 Fasting Glucose 114 H Hemoglobin A1c % 5.7 Calcium 8.9 AST 38 H ALT 50 H Triglycerides 287 H Cholesterol 205 H LDL Cholesterol, Calc 119 H HDL Cholesterol 29 L 25-OH Vitamin D Total 87.4 TSH 2.55 Ur Specific [place] 1.010 Urine Protein Negative Urine Glucose (UA) Negative Urine Blood Negative Urine Nitrite Negative Ur Leukocyte Esterase Negative Coding Level of Care Code Est Pt Level 4 (60456) Diagnoses Pure hypercholesterolemia E78.00 Benign essential hypertension I10 Impaired fasting glucose R73.01 Gastroesophageal reflux disease without esophagitis K21.9 Esophagitis presence: without esophagitis Elevated LFTs R79.89 Vitamin D deficiency E55.9 Urothelial carcinoma of bladder C67.9 Insomnia, unspecified type G47.00 Insomnia type: unspecified Overweight (BMI 25.0-29.9) E66.3 Additional Codes PHQ-9 - 27374 - PHQ-9 Billing: Yes ([id number]) Assessment & Plan Assessment & Plan (1) Pure hypercholesterolemia: Code(s): E78.00 - Pure hypercholesterolemia, unspecified Category: Medical Plan: Results of his labs done last week reviewed and discussed with patient - his serum TG level has again increased significantly from previous, in light of his significant weight gain lately Reinforced low cholesterol diet Patient prefers to continue with diet modification and avoid any statin Tx - he had myalgias while on statins in the past and more recently while on Fenofibrate as well Will recheck his labs and fasting lipids in 4 months for follow up (2) Benign essential hypertension: Code(s): I10 - Essential (primary) hypertension Category: Medical Plan: Reinforced low sodium diet - goal is systolic BP of at least 140 to 150 mm or less Continue Losartan 100 mg QD, Amlodipine 10 mg QD, Metoprolol 25 mg BID and Hydralazine 50 mg in AM, 25 mg in PM and 25 mg in the evening He is reminded to continue monitoring his blood pressure regularly (3) Impaired fasting glucose: Code(s): R73.01 - Impaired fasting glucose Category: Medical Plan: His FBS was at 114 mg/dl on his labs done last week; HgbA1c went up from his previous 5.1% to 5.7% currently Reinforced low calorie diet/exercise as tolerated Will continue to monitor his blood sugar and glycemic control regularly (4) GERD (gastroesophageal reflux disease): Code(s): K21.9 - Gastro-esophageal reflux disease without esophagitis Category: Medical Qualifiers: Esophagitis presence: without esophagitis Qualified Code(s): K21.9 - Gastro-esophageal reflux disease without esophagitis Plan: Dietary restrictions reinforced Continue Prilosec OTC 20 mg QD Biopsy of the GE junction done at his last EGD showed (+) mild chronic active inflammation consistent with GERD Follow up with GI as scheduled (5) Elevated LFTs: Code(s): R79.89 - Other specified abnormal findings of blood chemistry Category: Medical Plan: His LFTs have again increased from previous - this is most likely due to hepatosteatosis as he has gained almost 20 pounds since his last visit Abdominal US done in March 2023 revealed (+) hepatic steatosis and mild hepatomegaly CT done back in 2015 also revealed (+) hepatosteatosis Will continue to monitor his LFTs regularly (6) Vitamin D deficiency: Code(s): E55.9 - Vitamin D deficiency, unspecified Category: Medical Plan: Continue Vitamin D 2000 units QD (7) Urothelial carcinoma of bladder: Comment: Recurrent superficial high-grade June 2020 - good response to topical therapy Code(s): C67.9 - Malignant neoplasm of bladder, unspecified Category: Medical Plan: S/P TURBT on 09/27/[address] Street - pathology showed papillary uro thelial carcinoma, high grade with no evidence of invasion into the muscularis propia S/P biopsy and coagulation (x3) of tumors and also S/P BCG Tx (for recurrence of his bladder cancer) - cystoscopy done a couple of years ago reportedly came out okay and repeat procedures in June 2019 and November 2019 also came out negative Repeat biopsy done last year showed (+) recurrence of his bladder cancer and he is S/P surgery/resection by Dr. Alvarez on 07/06/2020 S/P intravesical immunotherapy with Gemcitabine as well and at his last visit with urology, was reportedly advised that he is cleared of his bladder cancer Follow up with urology as scheduled - he remains on a 6 months surveillance schedule at this time (8) Insomnia: Code(s): G47.00 - Insomnia, unspecified Category: Medical Qualifiers: Insomnia type: unspecified Qualified Code(s): G47.00 - Insomnia, unspecified Plan: Sleep hygiene reinforced Continue Diphenhydramine 25 mg Q HS PRN (9) Overweight (BMI 25.0-29.9): Code(s): E66.3 - Overweight Category: Medical Plan: Reinforced diet/exercise as tolerated/lose weight - he has gained almost 20 pounds since his last visit Plan Follow up in 4 months Orders: Orders Lipid Panel 4 Months E78.00 - Pure hypercholesterolemia, unspecified TSH reflex Free T4 4 Months E78.00 - Pure hypercholesterolemia, unspecified Vitamin B12 and Folate 4 Months E53.8 - Deficiency of other specified B group vitamins Hemoglobin A1c 4 Months R73.01 - Impaired fasting glucose Complete Blood Count Auto Diff 4 Months D64.9 - Anemia, unspecified Comprehensive [place]. Panel Fast 4 Months E78.00 - Pure hypercholesterolemia, unspecified UA CC w/rflx Micro + Cult 4 Months R30.0 - Dysuria Vitamin D 25-OH Total 4 Months E55.9 - Vitamin D deficiency, unspecified
[2025-01-01 08:54] VITALS: BP 142/66; PULSE 63; TEMP 36.3; O2SAT 97; BMI 32.7
--- OUTSIDE RECORDS SUMMARY | 2025-01-01 09:22 | XMS_ITS | Patient Health Record ---
Author Organization [facility] Address [address] [place] [address] Care Team Providers Care Planning Specialist Name Role Phone River ROJAS, Augusto Primary Care Provider Norm Turcios Unavailable [phone] Allergies Allergen (clinical drug ingredient) Drug/Non Drug [...] Status Risk Notes Problem Blood in stool (935515039) Blood in stool (578.1) Active confirmed Problem Colon cancer screening (834829782) Colon cancer screening (V76.51) Active confirmed Problem GERD (gastroesophag eal reflux disease) (530.81) Active confirmed Plan Of Treatment Pending Test Test Name Order Date GI BIOPSY 02/17/2015 Future Test Test Name Order Date UPPER GI ENDOSCOPY 12/09/2014 COLONOSCOPY 12/09/2014 Insurance Providers Payer Name Payer Address Payer Phone Subscriber Number Group Number Insured Name Patient Relationship to Insured Coverage Start Date Coverage End Date MEDICARE OF [place] [address] [place] [id number] [phone] [id number] BRITTANY NIEVES Self - patient is the insured [facility] [address] [place], [place] [id number] [phone] [id number] LIZBETH BRITTANY Self - patient is the insured Medical (General) History Medical History History ICD Code HTN Denies MD,DM,CVA,Lung disease,renal dise ase GERD--upper GI series in 2007 described a small hiatal hernia and reflux Neg. colonoscopy [place] [address] Booker Surgical History Surgery Date(Month/Year) knee surgery-right 1989 hemorrhoidectomy tooth extraction
== END 2025-01-01 09:47 | disposition home or self-care (01) ==
LOC: HO.HMCH 08:51
PROVIDERS: PCP Internal Medicine; Visit Provider Internal Medicine
DX: E78.00 Pure hypercholesterolemia, unspecified (principal); C67.9 Malignant neoplasm of bladder, unspecified; E66.3 Overweight; Z68.32 Body mass index [BMI] 32.0-32.9, adult; I10 Essential (primary) hypertension; R73.01 Impaired fasting glucose; K21.9 Gastro-esophageal reflux disease without esophagitis; R79.89 Other specified abnormal findings of blood chemistry; E55.9 Vitamin D deficiency, unspecified; G47.00 Insomnia, unspecified

== ENCOUNTER → 2025-01-01 08:50 | Outpatient (BNVA) | payer MEDICARE, BC, SELFPAY | PROVIDERS: PCP Internal Medicine; Visit Provider Internal Medicine | DX: I10 Essential (primary) hypertension (principal); E78.00 Pure hypercholesterolemia, unspecified; R73.01 Impaired fasting glucose; K21.9 Gastro-esophageal reflux disease without esophagitis; R79.89 Other specified abnormal findings of blood chemistry; E55.9 Vitamin D deficiency, unspecified; C67.9 Malignant neoplasm of bladder, unspecified; G47.00 Insomnia, unspecified; E66.3 Overweight; E53.8 Deficiency of other specified B group vitamins; D64.9 Anemia, unspecified; R30.0 Dysuria; Z68.32 Body mass index [BMI] 32.0-32.9, adult | CPT/HCPCS: 96127; 99212 ==

== ENCOUNTER 2025-03-18 10:45 | Outpatient (AMB) | payer MEDICARE, BC, SELFPAY ==
--- NOTE | 2025-03-18 11:24 | MHC.OFFVIS ---
Intake Visit Reasons: Cysto Intake Note: Pt presents to the office today for a cystoscopy procedure. Urology meds : none Blood Thinner : none Cystoscope: [id number] Exp:10/08/2027 [employer] Required: No Accompanied by: Self / Same As Patient Allergies amoxicillin Allergy (Severe, Verified 03/18/25 11:25) hives fenofibrate Adverse Reaction (Intermediate, Verified 03/18/25 11:25) myalgia, sneezing (?) codeine (CODEINE) Adverse Reaction (Mild, Verified 03/18/25 11:25) NAUSEA oxycodone (From PERCOCET) Adverse Reaction (Mild, Verified 03/18/25 11:25) NAUSEA & VOMITING PFSH Medical History Diplopia Hiatal hernia Hx of bladder cancer Murmur Obesity (BMI 30-39.9) Insomnia Urothelial carcinoma of bladder Vitamin D deficiency GERD (gastroesophageal reflux disease) Impaired fasting glucose Pure hypercholesterolemia Benign essential hypertension Surgical History History of esophagogastroduodenoscopy (EGD) History of biopsy of bladder History of cataract surgery History of bladder surgery History of colonoscopy H/O arthroscopy of knee History of hemorrhoidectomy Family History Father Hypertension Stroke Acute CVA (cerebrovascular accident) Mother Hypertension Diabetes CVD (cardiovascular disease) Brother In good health Social History Housing: House Alcohol intake: current Alcohol intake frequency: a few times a week Alcohol type: beer Patient Tobacco Use Status: Former Tobacco user e-Cigarette/Vaping Use: Never Used Second Hand Smoke Exposure: Yes service: Yes ([employer]) Current occupational status: retired Cognitive needs: No Hearing needs: No Vision needs: Yes Assessment & Plan Assessment & Plan Orders: Orders AMB Cystoscopy Today C67.9 - Malignant neoplasm of bladder, unspecified Medications: New lidocaine HCl 2% 10 mL intra-urethral ONCE 10 mL 0RF C67.9 - Malignant neoplasm of bladder, unspecified nitrofurantoin monohyd/m-cryst 100 mg 100 mg PO ONCE 1 cap 0RF C67.9 - Malignant neoplasm of bladder, unspecified Coding
--- NOTE | 2025-03-18 11:28 | A.OFFVIS_ITS ---
Intake Visit Reasons: Cysto Allergies amoxicillin Allergy (Severe, Verified 03/18/25 11:25) hives fenofibrate Adverse Reaction (Intermediate, Verified 03/18/25 11:25) myalgia, sneezing (?) codeine (CODEINE) Adverse Reaction (Mild, Verified 03/18/25 11:25) NAUSEA oxycodone (From PERCOCET) Adverse Reaction (Mild, Verified 03/18/25 11:25) NAUSEA & VOMITING HPI Comments Details: Linwood is a pleasant male. He is a patient of Dr. Holman. He is seen for the following urologic conditions - superficial bladder cancer - scrotal angiokeratoma Six-month follow-up check cystoscopy NAD Continue surveillance PSA 10/20 2.6 Nocturia x3 Occasional urge and frequency Trial daily tadalafil Bladder cancer June 2020 superficial high-grade bladder cancer - recurrent August 2018, January 2019, July 2020 Prior history of superficial bladder cancer. TURBT August 2018 superficial high-grade, January 2019 superficial high-grade, Jun 2020 superficial high-grade Adjuvant therapy January 2019 induction BCG with boost, - July 2020 induction gemcitabine - November 2020 boost gemcitabine - June 2021 boost gemcitabine - January 2022 Gemcitabine - March 2023 Gemcitabine Cystoscopy - December 2019 NAD - June 2020 small lesion in bladder - Nov 2020 NAD, March 2021 NAD, August 2021 NAD, Mar 2022 patchy areas of redness, 11/20 NAD, 03/23 NAD, 10/22 NAD, 03/24 NAD, 09/22 NAD Cytology - 03/21 Negative, 06/22 Negative, 09/19 rare atypical, 04/21 atypical, 09/21 FISH NAD, 03/24 NAD PFSH Medical History Diplopia Hiatal hernia Hx of bladder cancer Murmur Obesity (BMI 30-39.9) Insomnia Urothelial carcinoma of bladder Vitamin D deficiency GERD (gastroesophageal reflux disease) Impaired fasting glucose Pure hypercholesterolemia Benign essential hypertension Surgical History History of esophagogastroduodenoscopy (EGD) History of biopsy of bladder History of cataract surgery History of bladder surgery History of colonoscopy H/O arthroscopy of knee History of hemorrhoidectomy Family History Father Hypertension Stroke Acute CVA (cerebrovascular accident) Mother Hypertension Diabetes CVD (cardiovascular disease) Brother In good health Social History Housing: House Alcohol intake: current Alcohol intake frequency: a few times a week Alcohol t ype: beer Patient Tobacco Use Status: Former Tobacco user e-Cigarette/Vaping Use: Never Used Second Hand Smoke Exposure: Yes service: Yes ([employer]) Current occupational status: retired Cognitive needs: No Hearing needs: No Vision needs: Yes Review of Systems Const Denies chills and Denies fever(s) Card Reports no additional complaints and Denies syncope Resp Denies cough GI Denies abdominal pain and Denies heartburn Reports as per HPI and Denies change in libido Neuro Denies syncope Psych Denies change in libido Endo Denies change in libido Physical Exam Const General: cooperative, healthy appearing, comfortable and no acute distress Orientation/consciousness: patient oriented x3 HEENT Face and sinus: Yes normal facial exam Mouth: moist mucous membranes Neck Neck: Yes normal visual inspection, Yes full ROM and Yes trachea midline Chest Chest palpation & inspection: normal inspection of the chest Resp Effort & Inspection: normal respiratory effort, able to speak in complete sentences and no respiratory distress GI Inspection: Yes normal to inspection Back/Spine/Pelvis Cervical Spine: normal cervical lordosis Thoracic/Lumbar Spine: thoracic and lumbar spine normal to inspection Skin General skin exam: no rashes or lesions noted Neuro General: patient oriented x3, gait normal, tone normal and moves all extremities Extrem General: Yes normal to inspection and Yes capillary refill normal Office Procedures Cystoscopy Consent Discussed risk and benefit or proposed procedure with the patient. Information consent for procedure given to the patient. Discussed technical aspects, risks, benefits and alternatives in full. Addressed all of the patient's questions and concerns regarding the procedure. The patient demonstrated knowledge and understanding. They wish to proceed with this procedure. Preparation The patient was prepped in the usual manner. A spring coiling machine setter was present and in the room. Genitalia was prepped with betadine solution in a sterile manner. Lidocaine Jelly 2% was placed into the urethra and 16Fr flexible Olympus cystoscope was inserted into the meatus after adequate lubrication. Procedure Consent confirmed Cystoscopy performed using a disposable [employer] digital 16 Norwegian cystoscope. Meatus circumcised Urethra anterior and posterior urethra normal Prostatic Urethra unremarkable Bladder examination with retroflexion of cystoscope Bladder Orifices normal shape and position Bladder Capacity Normal Trabeculations grade 1/2 Cellule Formation yes Diverticulum Formation dome Mucosal Erythema None Bladder Tumor None [id number] DISPOSABLE SCOPE URO-G FLEXIBLE SCOPE Procedure code (CPT) selection complete Office Meds lidocaine HCl 2 % mucosal jelly in applicator Performing Provider: Vince Alvarez MD Performing Location: [facility] [place] [facility] Administered by: Anil Byers LPN on 03/18/25 11:28 Dose Route Admin Location Dispensed Lot Number Expiration Date ND Teletype Adjuster 10 mL intra-urethral 10 mL nitrofurantoin monohydrate/macrocrystals 100 mg capsule Performing Provider: Vince Alvarez MD Performing Location: [facility] [place] [facility] Administered by: Anil Byers LPN on 03/18/25 11:28 Dose Route Admin Location Dispensed Lot Number Expiration Date ND Teletype Adjuster 100 mg PO 1 cap Assessment & Plan Assessment & Plan (1) Urothelial carcinoma of bladder: Comment: Recurrent superficial high-grade June 2020 - good response to topical therapy Code(s): C67.9 - Malignant neoplasm of bladder, unspecified Category: Medical (2) Bladder outlet obstruction: Code(s): N32.0 - Bladder-neck obstruction Category: Medical Plan Trial tadalafil for bladder outlet obstruction Six-month follow-up check cysto Orders: Orders AMB Cystoscopy Today C67.9 - Malignant neoplasm of bladder, unspecified Medications: New tadalafil 5 mg PO DAILY 90 tabs 0RF 90 days N32.0 - Bladder-neck obstruction Patient Instructions: This note is constructed using voice recognition software. While every effort has been made to ensure accuracy heat treat operator errors may have been included. Imaging studies, laboratory and physical exam results were discussed and reviewed in detail. No major barriers to patient understanding were identified. An opportunity to ask questions regarding the treatment plan was provided. All questions were answered. The patient expressed understanding and agreement with the above treatment plan. The patient is aware they should contact our office by phone for worsening of their current condition or the appearance of new urologic symptoms. Compliance is encouraged with any medications and followup testing that is ordered. It is a privilege to participate in the urologic care of your patient. If you have any questions or concerns regarding treatment for the above conditions, or other urologic issues, please do not hesitate to contact me. The office telephone contact is [phone]. Sincerely, Dr Vince Alvarez MD, [facility] - Urology Compassionate Specialist Care for the Genitourinary System Coding Level of Care Code Est Pt Level 4 (18300) Complex EM visit Add On G2211 Diagnoses Urothelial carcinoma of bladder C67.9 Bladder outlet obstruction N32.0 CPT Codes Cystoscopy - CPT: 23780-[id number] ([id number])
== END 2025-03-18 11:45 | disposition home or self-care (01) ==
LOC: HO.HUSH 10:46
PROVIDERS: PCP Internal Medicine; Visit Provider Urology
DX: C67.9 Malignant neoplasm of bladder, unspecified (principal); N32.0 Bladder-neck obstruction
CPT/HCPCS: 52000; 99213

== ENCOUNTER → 2025-03-18 10:45 | Outpatient (BNVA) | payer MEDICARE, BC, SELFPAY | PROVIDERS: PCP Internal Medicine; Visit Provider Urology | DX: C67.9 Malignant neoplasm of bladder, unspecified (principal); N32.0 Bladder-neck obstruction | CPT/HCPCS: 52000; 99212 ==